=== PATIENT | female | born 1950 | race Caucasian/White ===

== ENCOUNTER → 2018-06-30 09:20 | Outpatient (CLI) | payer MEDICARE, OTHER, SELFPAY ==
--- NOTE | 2018-06-30 | DI.ECHO.S_ITS ---
[facility] +---------+ : : [address] : : : : [id number] : : : : Phone: [phone] Echocardiogram Report + + :Name: SAL ESTEVES Study Date: 06/30/2018 Height: 66 in : :[facility] Weight: 240 lb : : Gender: Female BSA: 2.2 m2 : :: 1950 Age: 68 yrs BP: 180/88 mmHg: :Reason For Study: Murmur : : Performed By: Chayito Vasquez : :Referring: MICHELLE HENDRIX : + + Interpretation Summary The left ventricle is normal in size, wall thickness, and systolic function without any focal wall motion abnormalities. The ejection fraction is estimated to be 60-65%. The right ventricle grossly appears normal in size with probable normal systolic function. The IVC is of normal diameter and collapses greater than 50% with a sniff. This suggests a low right atrial pressure of 3 mm Hg. No hemodynamically significant valvular abnormalities. Comparison is made with the echocardiogram of 08-18-14. No significant change. Procedure: A two-dimensional transthoracic echocardiogram with color flow and Doppler was performed. The study quality was technically adequate. Comparison is made with the echocardiogram of 08-18-14. The patient was in normal sinus rhythm during the exam. Left Ventricle: The left ventricle is normal in size, wall thickness, and systolic function without any focal wall motion abnormalities. The ejection fraction is estimated to be 60-65%. Diastolic parameters suggest probable normal left ventricular diastolic function and normal filling pressures. Right Ventricle: The right ventricle grossly appears normal in size with probable normal systolic function. Atria: The left atrium is mildly dilated. Right atrial size is normal. The interatrial septum is intact with no evidence for an atrial septal defect. Mitral Valve: The mitral valve leaflets appear borderline thickened, but open well. There is moderate mitral annular calcification. There is trace mitral regurgitation. Aortic Valve: The aortic valve opens well. The aortic valve is slightly calcified. The aortic valve is trileaflet. There is discrete nodular thickening of the non- coronary cusp. No aortic regurgitation is present. Tricuspid Valve: The tricuspid valve is not well visualized, but is grossly normal. There is trace tricuspid regurgitation. The right ventricular systolic pressure is estimated to be at least 32 mmHg based on an estimated right atrial pressure of 3 mm Hg. Pulmonic Valve: The pulmonic valve is not well visualized. There is trace pulmonic regurgitation. Great Vessels: The aortic root is normal size. The dimensions of the ascending aorta are normal. The IVC is of normal diameter and collapses greater than 50% with a sniff. This suggests a low right atrial pressure of 3 mm Hg. Pericardium/ Pleura There is no pericardial effusion. There is no pleural effusion. MMode/2D Measurements & Calculations LVIDd: 5.1 cm Ao root diam: 3.0 cm LVIDs: 3.4 cm Aortic Jxn: 2.4 cm FS: 33.7 % asc Aorta Diam: 3.3 cm EPSS: 0.48 cm Ao Arch Diam (Prox Trans): 2.9 cm IVSd: 1.0 cm LVPWd: 0.96 cm LV draper. diameter/BSA (cm/m^2): 2.4 LV sys. diameter/BSA (cm/m^2): 1.6 LA dimension: 4.1 cm RA long axis: 5.5 cm LA A2 area: 25.0 cm2 RA area: 17.6 cm2 LA A4 area: 23.1 cm2 RA vol: 47.9 ml LA length (vol): 5.8 cm RA : 22.2 ml/m2 LA vol: 85.1 ml IVC diam: 1.1 cm LA vol index: 39.4 ml/m2 RVDd major: 4.9 cm RVD1 (basal): 2.6 cm RVD2 (mid): 2.4 cm Doppler Measurements & Calculations Ao V2 max: 161.8 cm/sec MV E max agustin: 123.5 cm/sec Ao V2 mean: 93.2 cm/sec MV A max agustin: 123.5 cm/sec Ao max P.5 mmHg MV E/A: 1.0 Ao mean P.4 mmHg Med Peak E' Agustin: 7.1 cm/sec Ao V2 VTI: 35.6 cm E/E' med: 17.5 Lat Peak E' Agustin: 8.8 cm/sec E/E' lat: 14.0 E/e' average: 15.7 MV dec time: 0.19 sec MV P1/2t: 57.5 msec TR max agustin: 269.9 cm/sec MV P1/2t max agustin: 123.7 cm/sec TR max P.1 mmHg MVA(P1/2t): 3.8 cm2 PA V2 max: 91.8 cm/sec PA V2 mean: 63.2 cm/sec PA mean P.9 mmHg PA Accel Time: 0.12 sec Electronically signed by: Francisco Dacosta M.D. on Reading Physician:06/30/2018 09:00 PM
== END ==
PROVIDERS: Family Provider Orthopaedic Surgery; PCP Family Medicine; Referring Provider Internal Medicine; Visit Provider Family Medicine
DX: R01.1 Cardiac murmur, unspecified (principal)
CPT/HCPCS: 93005; 93010; 93306

== ENCOUNTER 2018-08-02 06:09 | Day surgery (SDC) | payer MEDICARE, OTHER, SELFPAY ==
[2018-07-23 09:59] VITALS: BMI 39.2
[2018-08-02] VITALS (9 sets, daily range): BP systolic 118–195; BP diastolic 52–90; PULSE 84–101; RESP 12–23; TEMP 36.1–37.1; O2SAT 91–98; BMI 39.2
[2018-08-02] MEDS: LACTATED RINGERS 1,000 ML 42 ML IV (07:00)
--- NOTE | 2018-08-02 07:41 | PM.PREOP ---
Pre-operative Note Interval Note Pre-op Check: Yes History & Physical Reviewed by Physician and Yes Exam Performed Changes: No
[2018-08-02] MEDS: CEFAZOLIN 2 GM/100 ML FROZ.PIGGY IV (08:01)
--- NOTE | 2018-08-02 08:37 | SUR.OPER ---
Lateral on padded OR bed with barba bag positioner, head on pillow, gel axillary roll in place, bottom leg bent with gel pad under knee to foot, upper leg straight and supported with pillows. Operative arm secured in shoulder positioning suspension device. non-operative arm secured on padded arm board. Safety belt at hip, tape over blanket securing lower legs.
--- NOTE | 2018-08-02 09:02 | PM.PROC.1 ---
Procedures Date/Time Date of procedure: 08/02/18 Time of procedure: 07:45 General Procedure description: Ultrasound guided interscalene brachial plexus nerve block for post op pain control after Left shoulder surgery by Dr. Lawson. Risk and benefits of procedure discussed with patient. ASA monitoring applied to patient. O2 given via nasal cannula. 2 mg Versed and 50 mcg fentanyl given for procedural sedation. Skin site was prepped with chlorhexidine and allowed to fully dry. Sterile gloves, mask, hat and probe cover were used to maintain sterility. 2% lidocaine and 30ga needle was used to make a small skin wheal at needle insertion site. Under ultrasound guidance, a 21ga 50mm Pajunk needle was directed into the interscalene groove (middle/anterior scalenes) near the brachial plexus. Patient reported no parasthesias. After negative aspiration, 15 mL 0.5% ropivicaine and 10mg dexamethasone were injected around brachial plexus. Patient tolerated procedure well.
[2018-08-02] MEDS: SODIUM CHLORIDE IRRIG SOLUTION 12,000 ML, EPINEPHrine 4 MG IRR (09:19)
[2018-08-02] MEDS: fentaNYL 100 MCG/2 ML INJ 50 MCG IV ×2 (09:41→09:49)
--- NOTE | 2018-08-02 09:42 | P.OP_ITS ---
Operative Date/Time/Diagnoses Date of procedure: 08/02/18 Time of procedure: 09:20 Pre-op diagnosis: 1. Left shoulder recurrent rotator cuff tear 2. Left shoulder acromioclavicular osteoarthritis 3. Left shoulder biceps tendinitis Post-op diagnosis: other (Left shoulder loose body in addition to the above diagnoses) Procedure & Clinicians Procedure: 1. Left shoulder arthroscopic rotator cuff repair 2. Left shoulder arthroscopic distal clavicle excision 3. Left shoulder arthroscopic loose body excision 4. Left shoulder arthroscopic minor debridement (biceps tenotomy) Same procedure as scheduled: Yes Indications: The patient is a 68-year-old woman who has had left shoulder pain that has not responded to an extensive attempt at nonoperative management. She has previously undergone a rotator cuff repair on that shoulder many years ago but her MRI appears to show a recurrence of the rotator cuff tear. She has agreed to surgery after discussion of the risks benefits and alternatives. Risks discussed included but were not limited to: Failure to improve either pain or function, infection, nerve damage, deep venous thrombosis, pulmonary embolism, stroke, myocardial infarction, permanent paralysis and . Surgeon: Dilip Lawson Director Pharmaceutical: [employer]any Theodore Click Yes if Unassisted: No Anesthesia Type: General, Peripheral nerve block and Local Operative Notes Findings: 1. Moderate degenerative change to the glenohumeral cartilage, grade 2, with single cartilaginous loose body in the glenohumeral joint 2. Mild degenerative changes of the labrum 3. Flattening and mild subluxation of the biceps tendon 4. Intact appearing subscapularis 5. High-grade partial-thickness tearing with possible slight fenestration at the site of the prior repair of the supraspinatus with loose suture in the joint. 6. Intact appearing infraspinatus 7. Axillary pouch normal 8. Intact appearing glenohumeral ligaments 9. Thinning and abrasion of the bursal surface of the rotator cuff in the same area as the abnormal supraspinatus in the joint 10. Satisfactory appearing prior subacromial decompression 11. Significant arthritic change of the acromioclavicular joint Closure Type: primary Specimen(s): none sent Implants & Drains: One Mitek Healix BR 5.5 mm anchor Applied: implant(s) Estimated Blood Loss (mL): 10 Blood products transfused: none Procedure in detail: The patient was seen in the preoperative area where she identified the left shoulder as the operative site and this was marked with my initials. She received preoperative antibiotics and underwent an interscalene block. She was taken to the operating room and placed on the operating room table in a supine position where she underwent induction with general anesthetic. Following the onset of satisfactory anesthesia her shoulder was examined under anesthesia with findings of a full range of motion and no evidence for pathologic laxity. She was then repositioned in the right lateral decubitus position with an axillary roll and padding for all pressure points. She was stabilized in this position with a barba bag and adhesive tape. The left arm was prepared from the fingertips to the base and neck with ChloraPrep in the usual fashion drape through sterile drapes. The arm was placed in 10 lb of balanced skin suspension. Subcutaneous landmarks were outlined on the skin with a marking pen and portal sites selected. The posterior portal was created and the arthroscope inserted in the glenohumeral joint. The anterior portal was used for shaver which was used to both remove the loose body and to perform a biceps tenotomy due to the flattening and mild subluxation. The arthroscopic equipment was then removed from the glenohumeral joint and replaced in the subacromial bursa with the scope through the posterior portal and the shaver through a newly created lateral portal. Prior to removing the scope from the joint we had placed a percutaneous marking suture at the site of maximum abnormality of the rotator cuff. This suture was identified in the bursa and shaver used to complete the rotator cuff tear through the thinned, frayed tissue evident in the bursa. The acromion was inspected and found to be well decompressed. The distal clavicle was inspected and the distal 8-10 mm of bone removed there due to the arthritic change in the joint. The greater tuberosity was abraded to bleeding bone. During the removal of the soft tissue we had also removed the fragment of suture from her prior repair. A new anchor was placed through a superolateral accessory portal. The 2 sutures from this anchor were placed in simple suture fashion across the 1 cm rotator cuff tear and tied to complete the repair. The integrity of the repair was verified from both the posterior and lateral views. At this point all arthroscopic equipment was removed from the joint. The wounds were closed with 4 0 Monocryl and Steri- Strips. A total of 20 mL 0.5% Marcaine was injected into the subcutaneous tissues and the subacromial space for postoperative pain control. Dressings sterile 4x4s, an ABD and an adhesive dressing were applied and the patient's arm placed in a sling. She was then transferred to the recovery room in good condition having tolerated the procedure well. Complications: none Condition: stable Disposition: PACU Plan for aftercare: The patient will be maintained on a standard small size rotator cuff tear protocol with passive range of motion and no lifting with the left arm for 6 weeks. She will be discharged today.
[2018-08-02] MEDS: BUPIVACAINE 0.5% W/ EPI (PF) VIAL 20 ML INJ (09:52)
[2018-08-02] MEDS: diphenhydrAMINE 25 MG TABLET PO (10:18)
--- NOTE | 2018-08-02 11:05 | SUR.PHASEII ---
Delay in discharge apprently related to not being available to take patient home due to a therapy appointment of codie reina. Patient dressed and ready to leave but remains in OPD.
== END 2018-08-02 11:55 | disposition home or self-care (01) ==
PROVIDERS: Family Provider Orthopaedic Surgery; PCP Family Medicine; Visit Provider Orthopaedic Surgery
PROC: (CPT 29827; principal; 2018-08-02 07:45)
DX: M75.122 Complete rotator cuff tear or rupture of left shoulder, not specified as traumatic (principal); M75.22 Bicipital tendinitis, left shoulder; M19.012 Primary osteoarthritis, left shoulder; Z98.890 Other specified postprocedural states; G89.18 Other acute postprocedural pain; G47.33 Obstructive sleep apnea (adult) (pediatric); I25.10 Atherosclerotic heart disease of native coronary artery without angina pectoris; Z79.84 Long term (current) use of oral hypoglycemic drugs; I11.0 Hypertensive heart disease with heart failure; I50.9 Heart failure, unspecified; I25.2 Old myocardial infarction
CPT/HCPCS: 29827; 29824; 64415; J0171; J0330; J0690; J1100; J2250; J2405; J2704; J2795; J3010

== ENCOUNTER 2018-11-26 09:44 | Emergency (ER) | payer MEDICARE, OTHER, SELFPAY ==
[2018-11-26 09:51] VITALS: BP 152/73; PULSE 71; RESP 20; TEMP 36.4; O2SAT 100
--- NOTE | 2018-11-26 11:13 | DI.US.S_ITS ---
PROCEDURE: US PERIPH VENOUS LOW EXTREM LT INDICATIONS: LEFT LOWER EXTREMITY PAIN TO BACK OF KNEE AND CALF TECHNIQUE: Real-time imaging, as well as color and pulse Doppler interrogation, were performed of the lower extremity deep veins from the inguinal ligament to the popliteal fossa. COMPARISON: None. FINDINGS: The common femoral, femoral and popliteal veins are normally compressible, and free of intraluminal thrombus. Color and pulse Doppler demonstrate normal phasic intraluminal flow. There is normal augmentation response to distal compression maneuver. IMPRESSION: No evidence of left lower extremity DVT. Dictated by: Fredis Lou M.D. on 11/26/2018 at 11:49 Approved by: Fredis Lou M.D. on 11/26/2018 at 11:51
--- NOTE | 2018-11-26 12:13 | ED_ITS ---
HPI - Extremity Problem <LEX Stafford - Last Filed: 11/26/18 22:38> General Chief complaint: Extremity Problem,Nontraumatic Stated complaint: lt leg pain, throbs, aches upon walking Time Seen by Provider: 11/26/18 12:03 Source: patient Mode of arrival: ambulatory Limitations: no limitations History of Present Illness HPI Narrative: [age] year old female with history of hypertension and is a former smoker here for complaint of pain into her left calf area over the past couple of days. She denies any trauma to that area. She reports she has pain with ambulation although she is ambulatory into the emergency room. She denies any chest pain no shortness of breath. Pain is limited to the left calf region. No fevers no chills. She denies any stressors or relievers of her pain other than pain with ambulation. Related Data Home Medications Medication Instructions Recorded Confirmed atorvastatin 20 mg PO QPM 07/23/18 11/26/18 diltiazem HCl 300 mg PO DAILY 07/23/18 11/26/18 flecainide 100 mg PO BID 07/23/18 11/26/18 gabapentin 300 mg PO QAM 07/23/18 11/26/18 glipizide 20 mg PO QAM 07/23/18 11/26/18 isosorbide mononitrate 60 mg PO DAILY 07/23/18 11/26/18 losartan 25 mg PO DAILY 07/23/18 11/26/18 metformin 1,000 mg PO BID 07/23/18 11/26/18 nitroglycerin 0.4 mg SUBLINGUAL DAILY PRN 07/23/18 11/26/18 omeprazole 40 mg PO DAILY 07/23/18 11/26/18 potassium chloride [Klor-Con 10] 10 meq PO QPM 07/23/18 11/26/18 allopurinol 300 mg PO DAILY 11/26/18 11/26/18 colchicine [Colcrys] 0.6 mg PO DAILY PRN 11/26/18 11/26/18 escitalopram oxalate 20 mg PO DAILY 11/26/18 11/26/18 gabapentin 600 mg PO QPM 11/26/18 11/26/18 torsemide 20 mg PO Q OTHER DAY 11/26/18 11/26/18 torsemide 40 mg PO Q OTHER DAY 11/26/18 11/26/18 Allergies Allergy/AdvReac Type Severity Reaction Status Date / Time adhesive tape [ADHESIVE TAPE] Allergy Intermediate WELTS/Itching Unverified 07/23/18 10:37 PAPER/SILK TAPE OK iodine [IODINE] Allergy Mild ITCHY AND Unverified 12/16/17 11:48 RASH UNLESS WASHED OF corn Allergy Swelling Verified 08/02/18 07:11 of Lip/Tongue/Throat codeine [CODEINE] AdvReac Intermediate ITCHY Unverified 12/16/17 11:48 hydrocodone [HYDROCODONE] AdvReac Intermediate ITCHY Unverified 12/16/17 11:48 oxycodone [OXYCODONE] AdvReac Intermediate ITCHY Unverified 12/16/17 11:48 Review of Systems <LEX Stafford - Last Filed: 11/26/18 22:38> Constitutional Denies chills, Denies fever(s), Denies lethargy and Denies weakness Eyes Denies change in vision, Denies eye discharge, Denies irritation and Denies loss of vision ENT Ears, Nose, Mouth, and Throat: Denies change in voice, Denies neck pain and Denies sore throat Cardiovascular Denies dyspnea and Denies dyspnea on exertion Respiratory Denies cough, Denies dyspnea, Denies dyspnea on exertion and Denies wheezing Gastrointestinal Gastrointestinal: Denies abdominal pain, Denies change in bowel habits, Denies diarrhea, Denies nausea and Denies vomiting Genitourinary Denies hematuria, Denies flank pain, Denies urinary incontinence and Denies urinary urgency Musculoskeletal Denies neck pain Comments: Left leg pain Integumentary/Breasts Denies pruritus, Denies erythema, Denies rash and Denies wounds Neurologic Denies confusion, Denies loss of vision and Denies weakness Psychiatric Denies anxiety, Denies confusion, Denies depression, Denies homicidal ideation and Denies suicidal ideation Hematologic/Lymphatic Denies easy bruising Allergic/Immunologic Denies wheezing PFSH <LEX Stafford - Last Filed: 11/26/18 22:38> Medical History Actinic keratosis (Acute) Anemia (Acute) Arthritis of left acromioclavicular joint (Acute) Basal cell carcinoma (Acute) Cardiac murmur (Acute) GERD (gastroesophageal reflux disease) (Acute) History of hysterectomy (Acute) History of squamous cell carcinoma (Acute) Hyperlipidemia (Acute) Hypertension (Acute) Obesity (BMI 30-39.9) (Acute) Osteoporosis (Acute) PVC (premature ventricular contraction) (Acute) ST segment abnormality (Acute ~08/2014) Seborrheic keratosis (Acute) Skin lesion of back (Acute) Sleep apnea (Acute) Spina bifida occulta (Acute) Tear of left rotator cuff (Acute) Type II diabetes mellitus (Acute) Valvular sclerosis (Acute) Surgical History History of appendectomy (Acute) History of arthroscopy of both knees (Acute) History of cholecystectomy (Acute) History of colonoscopy (Acute) History of esophagogastroduodenoscopy (EGD) (Acute) History of repair of rotator cuff (Acute) History of total left hip arthroplasty (Acute) History of total right hip arthroplasty (Acute) Social History household members: spouse Smoking Status: Former smoker Social History household members: spouse Smoking Status: Former smoker Exam <LEX Stafford - Last Filed: 11/26/18 22:38> Initial Vital Signs Initial Vital Signs: Vital Signs Temperature 97.5 F L 11/26/18 09:51 Pulse Rate 71 11/26/18 09:51 Respiratory Rate 20 11/26/18 09:51 Blood Pressure 152/73 H 11/26/18 09:51 Pulse Oximetry 100 11/26/18 09:51 Const General: cooperative and well developed Nutritional Appearance: well nourished Orientation: alert, awake, oriented x3 and not confused [facility] Mouth: oral mucosae normal and moist mucous membranes Eyes Conjunctivae: conjunctivae normal Sclera: sclerae normal Pupils: PERRL EOM: EOM intact bilaterally Resp Effort & Inspection: normal respiratory effort, able to speak in complete sentences, no respiratory distress and no use of accessory muscles Auscultation: clear to auscultation bilaterally, no rales, no rhonchi and no wheezes Cardio Rate: regular rate Rhythm: regular rhythm Heart Sounds: no click, no gallops, no murmurs and no rubs Pulses: normal peripheral pulses Skin General: no rashes or lesions noted, No jaundice and No petechiae Neuro General: alert, oriented x3, gait normal and no focal motor deficits Speech: speech normal Extrem Other: Left lower extremity with no swelling no erythema no increased temperature on palpation. No signs of trauma no deformities. Distal sensation is intact. Distal pulses are intact full range of motion distally. Homans sign negative. <Essence Philippe DO - Last Filed: 11/27/18 08:15> Initial Vital Signs Initial Vital Signs: Vital Signs Temperature 97.5 F L 11/26/18 09:51 Pulse Rate 71 11/26/18 09:51 Respiratory Rate 20 11/26/18 09:51 Blood Pressure 152/73 H 11/26/18 09:51 Pulse Oximetry 100 11/26/18 09:51 Course <LEX Stafford - Last Filed: 11/26/18 22:38> Orders Ordered: ED Orders 11/26/18 11:13 US periph venous low extrem lt Stat Vital Signs - 8 hr 11/26/18 09:51 Temperature 97.5 F L Pulse Rate 71 Respiratory Rate 20 Blood Pressure 152/73 H Pulse Oximetry 100 <Essence Philippe DO - Last Filed: 11/27/18 08:15> Orders Ordered: ED Orders 11/26/18 11:13 US periph venous low extrem lt Stat Vital Signs - 8 hr 11/26/18 09:51 Temperature 97.5 F L Pulse Rate 71 Respiratory Rate 20 Blood Pressure 152/73 H Pulse Oximetry 100 MDM - Extremity (Nontraumatic) <LEX Stafford - Last Filed: 11/26/18 22:38> Imaging Data Venous US: Radiologist's impression: [place] [address] Ultrasound Report Signed Patient: Sherry Mcknight [facility]#: [id number] : [id number]:[id number] Age/Sex: 68 / FDate of Service: 11/26/18 Loc: ED Accession Number: [id number] Procedure: US periph venous low extrem lt Ordering Provider: Essence Philippe D.O. PROCEDURE: US PERIPH VENOUS LOW EXTREM LT INDICATIONS: LEFT LOWER EXTREMITY PAIN TO BACK OF KNEE AND CALF TECHNIQUE: Real-time imaging, as well as color and pulse Doppler interrogation, were performed of the lower extremity deep veins from the inguinal ligament to the popliteal fossa. COMPARISON: None. FINDINGS: The common femoral, femoral and popliteal veins are normally compressible, and free of intraluminal thrombus. Color and pulse Doppler demonstrate normal phasic intraluminal flow. There is normal augmentation response to distal compression maneuver. IMPRESSION: No evidence of left lower extremity DVT. Dictated by: Fredis Lou M.D. on 11/26/2018 at 11:49 Approved by: Fredis Lou M.D. on 11/26/2018 at 11:51 MDM Narrative Medical decision making narrative: Ultrasound of the left lower extremity was obtained was negative for DVT. Differential of her pain being caused by muscle strain or varicose veins. [id number] Tylenol as needed for any discomfort. May use warm moist compresses to the area. Rest area. Follow up with primary care provider. Return emergency room for worsening symptoms. Discharge Plan Departure Patient Disposition: Home Clinical Impression: Acute pain of left lower extremity Discharge Date/Time: 11/26/18 12:25 Interventions: ED Discharge Assessment Last Done: 11/26/18 12:25 Instructions: DI for Leg Pain Activity Restrictions/Additional Instructions: Ultrasound of the left lower extremity was negative for a DVT. Differential between symptoms of other muscle pain or due to varicose veins. Rest area. Gentle range of motion of painful areas of keep muscles loose. May use warm moist compresses to varicose veins to see if it helps with the discomfort. May use elevation as well. Use [id number] Tylenol as needed for any discomfort. Follow up with primary care provider. Return emergency room for worsening symptoms. Prescriptions: No Action torsemide 20 mg tablet 20 mg PO Q OTHER DAY RF: 0 allopurinol 300 mg tablet 300 mg PO DAILY RF: 0 colchicine [Colcrys] 0.6 mg tablet 0.6 mg PO DAILY PRN (Reason: Gout) RF: 0 torsemide 20 mg tablet 40 mg PO Q OTHER DAY RF: 0 gabapentin 300 mg capsule 600 mg PO QPM RF: 0 escitalopram oxalate 20 mg tablet 20 mg PO DAILY RF: 0 losartan 50 mg Tablet 25 mg PO DAILY RF: 0 metformin 500 mg Tablet 1,000 mg PO BID RF: 0 atorvastatin 20 mg Tablet 20 mg PO QPM RF: 0 glipizide 10 mg Tablet 20 mg PO QAM RF: 0 diltiazem HCl 300 mg Capsule,Extended Release 24 Hr 300 mg PO DAILY RF: 0 omeprazole 40 mg Capsule,Delayed Release(Dr/Ec) 40 mg PO DAILY RF: 0 nitroglycerin 0.4 mg Tablet, Sublingual 0.4 mg SUBLINGUAL DAILY PRN (Reason: Chest Pain) RF: 0 potassium chloride [Klor-Con 10] 10 mEq Tablet Extended Release 10 meq PO QPM RF: 0 isosorbide mononitrate 60 mg Tablet Extended Release 24 Hr 60 mg PO DAILY RF: 0 flecainide 100 mg Tablet 100 mg PO BID RF: 0 gabapentin 300 mg Capsule 300 mg PO QAM RF: 0 Referrals: Paul Peralta DO [Primary Care Provider] - <Essence Philippe DO - Last Filed: 11/27/18 08:15> Cosign ED Attending Cosignature Attestation: I was immediately available in the department for consultation. Documentation has been reviewed. I agree with assessment and plan.
[2018-11-26 12:24] VITALS: BP 139/59; PULSE 57; RESP 18; O2SAT 98
[2018-11-26 12:25] VITALS: BP 139/59; PULSE 57; RESP 18; O2SAT 99
== END 2018-11-26 12:25 | disposition home or self-care (01) ==
PROVIDERS: Emergency Provider Nurse Practitioner Family; Family Provider Orthopaedic Surgery; PCP Family Medicine
DX: M79.662 Pain in left lower leg (principal)
CPT/HCPCS: 93971; 99282; 99284

== ENCOUNTER 2019-01-19 10:42 | Emergency (ER) | payer MEDICARE, OTHER, SELFPAY ==
[2019-01-19 10:45] VITALS: BP 140/72; PULSE 80; TEMP 36.5; O2SAT 97
--- NOTE | 2019-01-19 10:53 | DI.RAD.S_ITS ---
PROCEDURE: XR CHEST 2V INDICATIONS: cough x 1 week TECHNIQUE: 2 views of the chest were acquired. COMPARISON: [facility], , CHEST 1 VIEW, 08/06/2015, 8:46. FINDINGS: Surgical changes and devices: None. Lungs and pleura: Lungs are clear. No pleural effusions or pneumothorax. Mediastinum: Mediastinal contours are normal. Heart size is normal. Bones and chest wall: No suspicious bony abnormalities. Soft tissues appear unremarkable. IMPRESSION: No acute disease Dictated by: Jevon Spencer M.D. on 01/19/2019 at 11:22 Approved by: Jevon Spencer M.D. on 01/19/2019 at 11:22
[2019-01-19 11:30] VITALS: BP 130/59; PULSE 71; PULSE 75; RESP 16; RESP 18; O2SAT 95; O2SAT 96
[2019-01-19 12:00] VITALS: BP 123/66; PULSE 67; O2SAT 97
--- NOTE | 2019-01-19 12:39 | ED.SOB ---
HPI - SOB/Dyspnea <Tamica Contreras, TOOL PROFILING MACHINE SET UP OPERATOR-BC - Last Filed: 01/19/19 13:50> General Chief Complaint: Shortness of Breath/Dyspnea Stated Complaint: 'RESPITORY SOMETHING GOING ON' Time Seen by Provider: 01/19/19 12:20 Source: patient and family Mode of arrival: ambulatory Limitations: no limitations History of Present Illness The patient is a 68-year-old female former smoker with history of diabetes who presents with a chief complaint of a productive cough x3 days. She states she is having sinus pressure, sinus headaches and lots of mucus from her nose. She denies any fevers nausea vomiting abnormal diarrhea. She denies any shortness of breath or chest pain. She states her sputum is yellow. She is concerned about pneumonia. She denies sore throat. She denies ear pain. She started taking Sudafed yesterday. She has not taken anything else to feel better. She states she has a history of seasonal allergies, but has not had any issues for the past 3 years. She is very concerned about pneumonia. Related Data Home Medications Medication Instructions Recorded Confirmed atorvastatin 20 mg PO QPM 07/23/18 01/19/19 diltiazem HCl 300 mg PO DAILY 07/23/18 01/19/19 flecainide 100 mg PO BID 07/23/18 01/19/19 gabapentin 300 mg PO QAM 07/23/18 01/19/19 glipizide 20 mg PO QAM 07/23/18 01/19/19 isosorbide mononitrate 60 mg PO DAILY 07/23/18 01/19/19 losartan 25 mg PO DAILY 07/23/18 01/19/19 metformin 1,000 mg PO BID 07/23/18 01/19/19 nitroglycerin 0.4 mg SUBLINGUAL DAILY PRN 07/23/18 01/19/19 omeprazole 40 mg PO DAILY 07/23/18 01/19/19 potassium chloride [Klor-Con 10] 10 meq PO QPM 07/23/18 01/19/19 allopurinol 300 mg PO DAILY 11/26/18 01/19/19 colchicine [Colcrys] 0.6 mg PO DAILY PRN 11/26/18 01/19/19 escitalopram oxalate 20 mg PO DAILY 11/26/18 01/19/19 gabapentin 600 mg PO QPM 11/26/18 01/19/19 torsemide 20 mg PO Q OTHER DAY 11/26/18 01/19/19 Allergies Allergy/AdvReac Type Severity Reaction Status Date / Time adhesive tape [ADHESIVE TAPE] Allergy Intermediate WELTS/Itching Verified 01/19/19 10:48 PAPER/SILK TAPE OK iodine [IODINE] Allergy Mild ITCHY AND Verified 01/19/19 10:48 RASH UNLESS WASHED OF corn Allergy Swelling Verified 01/19/19 10:48 of Lip/Tongue/Throat codeine [CODEINE] AdvReac Intermediate ITCHY Verified 01/19/19 10:48 hydrocodone [HYDROCODONE] AdvReac Intermediate ITCHY Verified 01/19/19 10:48 oxycodone [OXYCODONE] AdvReac Intermediate ITCHY Verified 01/19/19 10:48 Review of Systems <[facility] - Last Filed: 01/19/19 13:50> Review of Systems GENERAL: Denies chills, fatigue, malaise, fever, sweats. HEENT: See HPI RESPIRATORY: See HPI CARDIOVASCULAR: Denies chest pain, palpitations, orthopnea, edema, GASTROINTESTINAL: Denies nausea, vomiting, abdominal pain, diarrhea, constipation, melena. : Denies dysuria, frequency, incontinence, hematuria, urinary retention. MUSCULOSKELETAL: denies weakness, joint pain, or bony pain SKIN: Denies rash, skin lesions, or other NEUROLOGIC: Denies weakness, headache, numbness, change in speech, confusion, seizures, incoordination. PSYCHIATRIC: No concerning psychosocial issues. 12 point review of systems is negative except for those stated above PFSH <[facility] - Last Filed: 01/19/19 13:50> Social History household members: spouse Smoking Status: Former smoker Exam <[facility] - Last Filed: 01/19/19 13:50> Narrative Exam Narrative: GENERAL: Obese elderly female lying on stretcher HEAD: Atraumatic. Normocephalic. No temporal or scalp tenderness. Pain to sinus palpation bilateral frontal sinuses. EYES: Pupils equal round and reactive. Extraocular motions intact. No scleral icterus. No injection or drainage. ENT: Nose without bleeding, purulent drainage or septal hematoma. Throat without erythema, tonsillar hypertrophy or exudate. Uvula midline. Airway patent. Bilateral TMs pearly young. Pressure noted bilaterally. Cobblestoning of throat noted. NECK: Trachea midline. No JVD or lymphadenopathy. Supple, nontender, no meningeal signs. CARDIOVASCULAR: Regular rate and rhythm without murmurs, gallops, or rubs. RESPIRATORY: Clear to auscultation. Breath sounds equal bilaterally. No wheezes, rales, or rhonchi. No cough. No increased respiratory effort. No retractions. No accessory muscle use. GASTROINTESTINAL: Abdomen soft, non-tender, nondistended. No hepato-splenomegaly, or palpable masses. No guarding. EXTREMITIES: No clubbing, cyanosis, or edema. No joint tenderness, effusion, or edema noted. NEURO: AOx3. SKIN: No rash or erythema. Initial Vital Signs Initial Vital Signs: Vital Signs Temperature 97.7 F 01/19/19 10:45 Pulse Rate 80 01/19/19 10:45 Blood Pressure 140/72 01/19/19 10:45 Pulse Oximetry 97 01/19/19 10:45 <Veronika Garcia MD - Last Filed: 01/19/19 14:56> Initial Vital Signs Initial Vital Signs: Vital Signs Temperature 97.7 F 01/19/19 10:45 Pulse Rate 80 01/19/19 10:45 Blood Pressure 140/72 01/19/19 10:45 Pulse Oximetry 97 01/19/19 10:45 Course <MAGDALENA Samayoa-BC - Last Filed: 01/19/19 13:50> Orders Ordered: ED Orders 01/19/19 10:53 XR chest 2V Stat EKG-12 Lead Stat Vital Signs - 8 hr 01/19/19 10:45 01/19/19 11:30 01/19/19 12:00 Temperature 97.7 F Pulse Rate 80 75 67 Respiratory Rate 18 Blood Pressure 140/72 Blood Pressure [Left Arm] 130/59 L 123/66 Pulse Oximetry 97 96 97 01/19/19 12:52 Temperature Pulse Rate 72 Respiratory Rate 16 Blood Pressure 120/70 Blood Pressure [Left Arm] Pulse Oximetry 95 <Veronika Garcia MD - Last Filed: 01/19/19 14:56> Orders Ordered: ED Orders 01/19/19 10:53 XR chest 2V Stat EKG-12 Lead Stat Vital Signs - 8 hr 01/19/19 10:45 01/19/19 11:30 01/19/19 12:00 Temperature 97.7 F Pulse Rate 80 75 67 Respiratory Rate 18 Blood Pressure 140/72 Blood Pressure [Left Arm] 130/59 L 123/66 Pulse Oximetry 97 96 97 01/19/19 12:52 Temperature Pulse Rate 72 Respiratory Rate 16 Blood Pressure 120/70 Blood Pressure [Left Arm] Pulse Oximetry 95 [facility] - SOB/Dyspnea <MAGDALENA Samayoa- - Last Filed: 01/19/19 13:50> Imaging Data Chest x-ray: Radiologist's impression: [address] [address] XRay Report Signed Patient: Sherry Mcknight [facility]#: [id number] : [id number]:[id number] Age/Sex: 68 / FDate of Service: 01/19/19 Loc: ED Accession Number: [id number] Procedure: XR chest 2V Ordering Provider: Veronika Garcia MD PROCEDURE: XR CHEST 2V INDICATIONS: cough x 1 week TECHNIQUE: 2 views of the chest were acquired. COMPARISON: [facility], CHEST 1 VIEW, 08/06/2015, 8:46. FINDINGS: Surgical changes and devices: None. Lungs and pleura: Lungs are clear. No pleural effusions or pneumothorax. Mediastinum: Mediastinal contours are normal. Heart size is normal. Bones and chest wall: No suspicious bony abnormalities. Soft tissues appear unremarkable. IMPRESSION: No acute disease Dictated by: Jevon Spencer M.D. on 01/19/2019 at 11:22 Approved by: Jevon Spencer M.D. on 01/19/2019 at 11:22 ECG Data Attestation: I personally reviewed and interpreted this ECG as follows: Interpretation: Sinus rhythm. Ventricular rate 75. No ST elevation or depression. No ectopy noted. Viewed by Dr. Jose VILLARREAL Narrative Medical decision making narrative: The patient is a 68-year-old female with productive cough. She has a negative x-ray for pneumonia. Given her signs and symptoms of sinus headache, congestion I am concerned about upper respiratory infection. I discussed that she cannot get antibiotics for sinus infection without systemic symptoms for 10-14 days. Thus I discussed at length the use of Flonase, Neti pot and [id number] symptom control. Encouraged follow-up with her primary care provider. Did discussed doing blood work given her history of congestive heart failure to check BNP, but the patient declined. Encouraged patient to come back to emergency department for any acute concerns such as chest pain or shortness of breath. Patient had no questions or concerns upon discharge. She is hemodynamically stable and afebrile throughout her stay in the emergency department. Discharge Plan Departure Patient Disposition: Home Clinical Impression: Cough Upper respiratory infection Qualifiers: URI type: unspecified viral URI Qualified Code(s): J06.9 - Acute upper respiratory infection, unspecified Discharge Date/Time: 01/19/19 12:52 Interventions: ED Discharge Assessment Last Done: 01/19/19 12:52 Instructions: DI for Cough -- Adult, DI for Viral Upper Respiratory Infection -- Adult Activity Restrictions/Additional Instructions: Your x-ray shows no pneumonia. I suggest use of a Neti pot or Anthony med sinus rinse 3 times a day. I suggest Flonase twice a day for 3 days and then once a day in each nare. Flonase is available [id number]. I also suggest a decongestant, but be careful with Sudafed given your high blood pressure. Always keep in mind allergies may be causing this. Please come back to emergency department for any chest pain shortness of breath or acute concerns. Prescriptions: No Action torsemide 20 mg tablet 20 mg PO Q OTHER DAY RF: 0 allopurinol 300 mg tablet 300 mg PO DAILY RF: 0 colchicine [Colcrys] 0.6 mg tablet 0.6 mg PO DAILY PRN (Reason: Gout) RF: 0 gabapentin 300 mg capsule 600 mg PO QPM RF: 0 escitalopram oxalate 20 mg tablet 20 mg PO DAILY RF: 0 losartan 50 mg Tablet 25 mg PO DAILY RF: 0 metformin 500 mg Tablet 1,000 mg PO BID RF: 0 atorvastatin 20 mg Tablet 20 mg PO QPM RF: 0 glipizide 10 mg Tablet 20 mg PO QAM RF: 0 diltiazem HCl 300 mg Capsule,Extended Release 24 Hr 300 mg PO DAILY RF: 0 omeprazole 40 mg Capsule,Delayed Release(Dr/Ec) 40 mg PO DAILY RF: 0 nitroglycerin 0.4 mg Tablet, Sublingual 0.4 mg SUBLINGUAL DAILY PRN (Reason: Chest Pain) RF: 0 potassium chloride [Klor-Con 10] 10 mEq Tablet Extended Release 10 meq PO QPM RF: 0 isosorbide mononitrate 60 mg Tablet Extended Release 24 Hr 60 mg PO DAILY RF: 0 flecainide 100 mg Tablet 100 mg PO BID RF: 0 gabapentin 300 mg Capsule 300 mg PO QAM RF: 0 Referrals: Paul Peralta DO [Primary Care Provider] -
--- NOTE | 2019-01-19 12:46 | ED_ITS ---
HPI - SOB/Dyspnea <Tamica Contreras, PORTFOLIO ASSISTANT-BC - Last Filed: 01/19/19 13:50> General Chief Complaint: Shortness of Breath/Dyspnea Stated Complaint: 'RESPITORY SOMETHING GOING ON' Time Seen by Provider: 01/19/19 12:20 Source: patient and family Mode of arrival: ambulatory Limitations: no limitations History of Present Illness The patient is a 68-year-old female former smoker with history of diabetes who presents with a chief complaint of a productive cough x3 days. She states she is having sinus pressure, sinus headaches and lots of mucus from her nose. She denies any fevers nausea vomiting abnormal diarrhea. She denies any shortness of breath or chest pain. She states her sputum is yellow. She is concerned about pneumonia. She denies sore throat. She denies ear pain. She started taking Sudafed yesterday. She has not taken anything else to feel better. She states she has a history of seasonal allergies, but has not had any issues for the past 3 years. She is very concerned about pneumonia. Related Data Home Medications Medication Instructions Recorded Confirmed atorvastatin 20 mg PO QPM 07/23/18 01/19/19 diltiazem HCl 300 mg PO DAILY 07/23/18 01/19/19 flecainide 100 mg PO BID 07/23/18 01/19/19 gabapentin 300 mg PO QAM 07/23/18 01/19/19 glipizide 20 mg PO QAM 07/23/18 01/19/19 isosorbide mononitrate 60 mg PO DAILY 07/23/18 01/19/19 losartan 25 mg PO DAILY 07/23/18 01/19/19 metformin 1,000 mg PO BID 07/23/18 01/19/19 nitroglycerin 0.4 mg SUBLINGUAL DAILY PRN 07/23/18 01/19/19 omeprazole 40 mg PO DAILY 07/23/18 01/19/19 potassium chloride [Klor-Con 10] 10 meq PO QPM 07/23/18 01/19/19 allopurinol 300 mg PO DAILY 11/26/18 01/19/19 colchicine [Colcrys] 0.6 mg PO DAILY PRN 11/26/18 01/19/19 escitalopram oxalate 20 mg PO DAILY 11/26/18 01/19/19 gabapentin 600 mg PO QPM 11/26/18 01/19/19 torsemide 20 mg PO Q OTHER DAY 11/26/18 01/19/19 Allergies Allergy/AdvReac Type Severity Reaction Status Date / Time adhesive tape [ADHESIVE TAPE] Allergy Intermediate WELTS/Itching Verified 01/19/19 10:48 PAPER/SILK TAPE OK iodine [IODINE] Allergy Mild ITCHY AND Verified 01/19/19 10:48 RASH UNLESS WASHED OF corn Allergy Swelling Verified 01/19/19 10:48 of Lip/Tongue/Throat codeine [CODEINE] AdvReac Intermediate ITCHY Verified 01/19/19 10:48 hydrocodone [HYDROCODONE] AdvReac Intermediate ITCHY Verified 01/19/19 10:48 oxycodone [OXYCODONE] AdvReac Intermediate ITCHY Verified 01/19/19 10:48 Review of Systems <[facility] - Last Filed: 01/19/19 13:50> Review of Systems GENERAL: Denies chills, fatigue, malaise, fever, sweats. HEENT: See HPI RESPIRATORY: See HPI CARDIOVASCULAR: Denies chest pain, palpitations, orthopnea, edema, GASTROINTESTINAL: Denies nausea, vomiting, abdominal pain, diarrhea, constipation, melena. : Denies dysuria, frequency, incontinence, hematuria, urinary retention. MUSCULOSKELETAL: denies weakness, joint pain, or bony pain SKIN: Denies rash, skin lesions, or other NEUROLOGIC: Denies weakness, headache, numbness, change in speech, confusion, seizures, incoordination. PSYCHIATRIC: No concerning psychosocial issues. 12 point review of systems is negative except for those stated above PFSH <[facility] - Last Filed: 01/19/19 13:50> Social History household members: spouse Smoking Status: Former smoker Exam <[facility] - Last Filed: 01/19/19 13:50> Narrative Exam Narrative: GENERAL: Obese elderly female lying on stretcher HEAD: Atraumatic. Normocephalic. No temporal or scalp tenderness. Pain to sinus palpation bilateral frontal sinuses. EYES: Pupils equal round and reactive. Extraocular motions intact. No scleral icterus. No injection or drainage. ENT: Nose without bleeding, purulent drainage or septal hematoma. Throat without erythema, tonsillar hypertrophy or exudate. Uvula midline. Airway patent. Bilateral TMs pearly young. Pressure noted bilaterally. Cobblestoning of throat noted. NECK: Trachea midline. No JVD or lymphadenopathy. Supple, nontender, no meningeal signs. CARDIOVASCULAR: Regular rate and rhythm without murmurs, gallops, or rubs. RESPIRATORY: Clear to auscultation. Breath sounds equal bilaterally. No wheezes, rales, or rhonchi. No cough. No increased respiratory effort. No retractions. No accessory muscle use. GASTROINTESTINAL: Abdomen soft, non-tender, nondistended. No hepato- splenomegaly, or palpable masses. No guarding. EXTREMITIES: No clubbing, cyanosis, or edema. No joint tenderness, effusion, or edema noted. NEURO: AOx3. SKIN: No rash or erythema. Initial Vital Signs Initial Vital Signs: Vital Signs Temperature 97.7 F 01/19/19 10:45 Pulse Rate 80 01/19/19 10:45 Blood Pressure 140/72 01/19/19 10:45 Pulse Oximetry 97 01/19/19 10:45 <Veronika Garcia MD - Last Filed: 01/19/19 14:56> Initial Vital Signs Initial Vital Signs: Vital Signs Temperature 97.7 F 01/19/19 10:45 Pulse Rate 80 01/19/19 10:45 Blood Pressure 140/72 01/19/19 10:45 Pulse Oximetry 97 01/19/19 10:45 Course <MAGDALENA Samayoa-BC - Last Filed: 01/19/19 13:50> Orders Ordered: ED Orders 01/19/19 10:53 XR chest 2V Stat EKG-12 Lead Stat Vital Signs - 8 hr 01/19/19 10:45 01/19/19 11:30 01/19/19 12:00 Temperature 97.7 F Pulse Rate 80 75 67 Respiratory Rate 18 Blood Pressure 140/72 Blood Pressure [Left Arm] 130/59 L 123/66 Pulse Oximetry 97 96 97 01/19/19 12:52 Temperature Pulse Rate 72 Respiratory Rate 16 Blood Pressure 120/70 Blood Pressure [Left Arm] Pulse Oximetry 95 <Veronika Garcia MD - Last Filed: 01/19/19 14:56> Orders Ordered: ED Orders 01/19/19 10:53 XR chest 2V Stat EKG-12 Lead Stat Vital Signs - 8 hr 01/19/19 10:45 01/19/19 11:30 01/19/19 12:00 Temperature 97.7 F Pulse Rate 80 75 67 Respiratory Rate 18 Blood Pressure 140/72 Blood Pressure [Left Arm] 130/59 L 123/66 Pulse Oximetry 97 96 97 01/19/19 12:52 Temperature Pulse Rate 72 Respiratory Rate 16 Blood Pressure 120/70 Blood Pressure [Left Arm] Pulse Oximetry 95 [facility]DM - SOB/Dyspnea <MAGDALENA Samayoa- - Last Filed: 01/19/19 13:50> Imaging Data Chest x-ray: Radiologist's impression: [address] [address] XRay Report Signed Patient: Sherry Mcknight [facility]#: [id number] : [id number]:[id number] Age/Sex: 68 / FDate of Service: 01/19/19 Loc: ED Accession Number: [id number] Procedure: XR chest 2V Ordering Provider: Veronika Garcia MD PROCEDURE: XR CHEST 2V INDICATIONS: cough x 1 week TECHNIQUE: 2 views of the chest were acquired. COMPARISON: [facility], CHEST 1 VIEW, 08/06/2015, 8:46. FINDINGS: Surgical changes and devices: None. Lungs and pleura: Lungs are clear. No pleural effusions or pneumothorax. Mediastinum: Mediastinal contours are normal. Heart size is normal. Bones and chest wall: No suspicious bony abnormalities. Soft tissues appear unremarkable. IMPRESSION: No acute disease Dictated by: Jevon Spencer M.D. on 01/19/2019 at 11:22 Approved by: Jevon Spencer M.D. on 01/19/2019 at 11:22 ECG Data Attestation: I personally reviewed and interpreted this ECG as follows: Interpretation: Sinus rhythm. Ventricular rate 75. No ST elevation or depression. No ectopy noted. Viewed by Dr. Jose VILLARREAL Narrative Medical decision making narrative: The patient is a 68-year-old female with productive cough. She has a negative x-ray for pneumonia. Given her signs and symptoms of sinus headache, congestion I am concerned about upper respiratory in fection. I discussed that she cannot get antibiotics for sinus infection without systemic symptoms for 10-14 days. Thus I discussed at length the use of Flonase, Neti pot and [id number] symptom control. Encouraged follow-up with her primary care provider. Did discussed doing blood work given her history of congestive heart failure to check BNP, but the patient declined. Encouraged patient to come back to emergency department for any acute concerns such as chest pain or shortness of breath. Patient had no questions or concerns upon discharge. She is hemodynamically stable and afebrile throughout her stay in the emergency department. Discharge Plan Departure Patient Disposition: Home Clinical Impression: Cough Upper respiratory infection Qualifiers: URI type: unspecified viral URI Qualified Code(s): J06.9 - Acute upper respiratory infection, unspecified Discharge Date/Time: 01/19/19 12:52 Interventions: ED Discharge Assessment Last Done: 01/19/19 12:52 Instructions: DI for Cough -- Adult, DI for Viral Upper Respiratory Infection -- Adult Activity Restrictions/Additional Instructions: Your x-ray shows no pneumonia. I suggest use of a Neti pot or Anthony med sinus rinse 3 times a day. I suggest Flonase twice a day for 3 days and then once a day in each nare. Flonase is available [id number]. I also suggest a decongestant, but be careful with Sudafed given your high blood pressure. Always keep in mind allergies may be causing this. Please come back to emergency department for any chest pain shortness of breath or acute concerns. Prescriptions: No Action torsemide 20 mg tablet 20 mg PO Q OTHER DAY RF: 0 allopurinol 300 mg tablet 300 mg PO DAILY RF: 0 colchicine [Colcrys] 0.6 mg tablet 0.6 mg PO DAILY PRN (Reason: Gout) RF: 0 gabapentin 300 mg capsule 600 mg PO QPM RF: 0 escitalopram oxalate 20 mg tablet 20 mg PO DAILY RF: 0 losartan 50 mg Tablet 25 mg PO DAILY RF: 0 metformin 500 mg Tablet 1,000 mg PO BID RF: 0 atorvastatin 20 mg Tablet 20 mg PO QPM RF: 0 glipizide 10 mg Tablet 20 mg PO QAM RF: 0 diltiazem HCl 300 mg Capsule,Extended Release 24 Hr 300 mg PO DAILY RF: 0 omeprazole 40 mg Capsule,Delayed Release(Dr/Ec) 40 mg PO DAILY RF: 0 nitroglycerin 0.4 mg Tablet, Sublingual 0.4 mg SUBLINGUAL DAILY PRN (Reason: Chest Pain) RF: 0 potassium chloride [Klor-Con 10] 10 mEq Tablet Extended Release 10 meq PO QPM RF: 0 isosorbide mononitrate 60 mg Tablet Extended Release 24 Hr 60 mg PO DAILY RF: 0 flecainide 100 mg Tablet 100 mg PO BID RF: 0 gabapentin 300 mg Capsule 300 mg PO QAM RF: 0 Referrals: Paul Peralta DO [Primary Care Provider] -
[2019-01-19 12:52] VITALS: BP 120/70; PULSE 72; RESP 16; O2SAT 95
== END 2019-01-19 12:52 | disposition home or self-care (01) ==
PROVIDERS: Emergency Provider Nurse Practitioner Family; Family Provider Orthopaedic Surgery; PCP Family Medicine
DX: J06.9 Acute upper respiratory infection, unspecified (principal); R06.02 Shortness of breath
CPT/HCPCS: 71046; 93005; 93010; 99283; 99284

== ENCOUNTER 2020-03-25 14:49 | Emergency (ER) | payer MEDICARE, OTHER, SELFPAY ==
[2020-03-25] VITALS (10 sets, daily range): BP systolic 135–187; BP diastolic 61–83; PULSE 70–92; RESP 12–20; TEMP 36.1; O2SAT 95–98; BMI 42.3
[2020-03-25 16:51] LABS: RBC Urine None Seen (0-5/HPF)
--- NOTE | 2020-03-25 16:51 | ED.GENADULT ---
HPI - General Adult General Chief complaint: Diabetic Problem Stated complaint: type 2 diabetic,states numbers are high Time Seen by Provider: 03/25/20 16:51 Source: patient Mode of arrival: Ambulatory Limitations: no limitations History of Present Illness HPI narrative: The patient has type 2 diabetes. She notes her glucose levels have been greater than 300 several times in recent weeks. He is on oral medications only, no insulin. She is supposed to be using metformin and glipizide, but has not been good about taking her medications. She has no headache, no visual changes, no chest pain or dyspnea. She denies GI or complaints. She has no neurologic disease. She does have a history of non-STEMI and CHF. She is currently not experiencing dyspnea, orthopnea. She does have a degree of peripheral edema. This seems to be adaily normal problem for her. Additionally, she has hypertension. Her blood pressure was greater than 180 upon arrival, without intervention improved to 139 systolic. She does complain of fatigue, she has no other complaints at this time. Related Data Home Medications Medication Instructions Recorded Confirmed atorvastatin 20 mg PO QPM 07/23/18 01/19/19 diltiazem HCl 300 mg PO DAILY 07/23/18 01/19/19 flecainide 100 mg PO BID 07/23/18 01/19/19 gabapentin 300 mg PO QAM 07/23/18 01/19/19 glipizide 20 mg PO QAM 07/23/18 01/19/19 isosorbide mononitrate 60 mg PO DAILY 07/23/18 01/19/19 losartan 25 mg PO DAILY 07/23/18 01/19/19 metformin 1,000 mg PO BID 07/23/18 01/19/19 nitroglycerin 0.4 mg SUBLINGUAL DAILY PRN 07/23/18 01/19/19 omeprazole 40 mg PO DAILY 07/23/18 01/19/19 potassium chloride [Klor-Con 10] 10 meq PO QPM 07/23/18 01/19/19 allopurinol 300 mg PO DAILY 11/26/18 01/19/19 colchicine [Colcrys] 0.6 mg PO DAILY PRN 11/26/18 01/19/19 escitalopram oxalate 20 mg PO DAILY 11/26/18 01/19/19 gabapentin 600 mg PO QPM 11/26/18 01/19/19 torsemide 20 mg PO Q OTHER DAY 11/26/18 01/19/19 Allergies Allergy/AdvReac Type Severity Reaction Status Date / Time adhesive tape [ADHESIVE TAPE] Allergy Intermediate WELTS/Itching Verified 03/25/20 15:11 PAPER/SILK TAPE OK iodine [IODINE] Allergy Mild ITCHY AND Verified 03/25/20 15:11 RASH UNLESS WASHED OF corn Allergy Swelling Verified 03/25/20 15:11 of Lip/Tongue/Throat codeine [CODEINE] AdvReac Intermediate ITCHY Verified 03/25/20 15:11 hydrocodone [HYDROCODONE] AdvReac Intermediate ITCHY Verified 03/25/20 15:11 oxycodone [OXYCODONE] AdvReac Intermediate ITCHY Verified 03/25/20 15:11 Review of Systems Review of Systems ROS Unobtainable: All systems reviewed & are unremarkable except as noted in HPI and below Constitutional Constitutional: Denies chills, Denies fever(s) and Reports lethargy Eyes Eyes: Denies change in vision, Denies eye discharge, Denies irritation and Denies loss of vision ENT Ears, Nose, Mouth, and Throat: Denies change in voice, Denies neck pain and Denies sore throat Cardiovascular Cardiovascular: Denies chest pain, Denies irregular heart rhythm, Denies lightheadedness, Denies palpitations and Denies dyspnea Respiratory Respiratory: Denies cough, Denies dyspnea and Denies wheezing Gastrointestinal Gastrointestinal: Denies abdominal pain, Denies change in bowel habits, Denies diarrhea, Denies nausea and Denies vomiting Genitourinary Genitourinary: Denies dysuria Genitourinary: Denies dysuria Musculoskeletal Musculoskeletal: Denies back pain and Denies neck pain Integumentary/Breasts Skin/Breast: Denies pruritus, Denies erythema, Denies rash and Denies wounds Neurologic Neurologic: Denies confusion and Denies loss of vision Comments: No focal numbness or weakness. Psychiatric Psychiatric: Denies anxiety, Denies confusion and Denies depression Endocrine Endocrine: Denies palpitations Comments: Hyperglycemia. Hematologic/Lymphatic Hematologic/Lymphatic: Denies easy bleeding and Denies easy bruising Allergic/Immunologic Allergic/Immunologic: Denies wheezing Patient History Medical History Actinic keratosis (Acute) Anemia (Acute) Arthritis of left acromioclavicular joint (Acute) Basal cell carcinoma (Acute) Cardiac murmur (Acute) GERD (gastroesophageal reflux disease) (Acute) History of squamous cell carcinoma (Acute) Hyperlipidemia (Acute) Hypertension (Acute) Obesity (BMI 30-39.9) (Acute) Osteoporosis (Acute) PVC (premature ventricular contraction) (Acute) Seborrheic keratosis (Acute) Skin lesion of back (Acute) Sleep apnea (Acute) Spina bifida occulta (Acute) ST segment abnormality (Acute ~08/2014) Tear of left rotator cuff (Acute) Type II diabetes mellitus (Acute) Valvular sclerosis (Acute) Surgical History History of appendectomy (Acute) History of arthroscopy of both knees (Acute) History of cholecystectomy (Acute) History of colonoscopy (Acute) History of esophagogastroduodenoscopy (EGD) (Acute) History of hysterectomy (Acute) History of repair of rotator cuff (Acute) History of total left hip arthroplasty (Acute) History of total right hip arthroplasty (Acute) Social History household members: spouse Smoking Status: Former smoker Smoking Status: Former smoker alcohol intake frequency: holidays/special occasions only Substance Use Type: does not use and other Exam Initial Vital Signs Initial Vital Signs: Vital Signs Temperature 97.0 F L 03/25/20 15:07 Pulse Rate 82 03/25/20 15:07 Respiratory Rate 16 03/25/20 15:07 Blood Pressure 135/61 03/25/20 15:07 Pulse Oximetry 97 03/25/20 15:07 Const General: cooperative and well developed Nutritional Appearance: well nourished [facility] Head: normocephalic and atraumatic Face and sinus: sinuses nontender and face symmetric Mouth: oral mucosae normal and moist mucous membranes Teeth and gingiva: dentition normal Throat: tonsils normal and uvula midline Eyes General: appearance normal, both eyes and all related structures Eyelids: eyelids normal Conjunctivae: conjunctivae normal Sclera: sclerae normal Pupils: PERRL EOM: EOM intact bilaterally Neck Neck: normal visual inspection, trachea midline and No JVD Lymphatic: No lymphedema Resp Effort & Inspection: normal respiratory effort and able to speak in complete sentences Auscultation: clear to auscultation bilaterally, no rales, no rhonchi and no wheezes Cardio Rate: regular rate Rhythm: regular rhythm Heart Sounds: no click, no gallops, no murmurs and no rubs Pulses: normal peripheral pulses GI Inspection: non-distended Palpation: soft, no hepatosplenomegaly, No guarding, No pulsatile mass and No tender Auscultation: normal bowel sounds Back/Spine/Pelvis Back: No CVA tenderness Cervical Spine: cervical ROM normal Thoracic/Lumbar Spine: thoracic and lumbar spine normal to inspection Skin General: no rashes or lesions noted, No jaundice and No petechiae Neuro General: patient alert, patient oriented x3, gait normal and no focal motor deficits Speech: speech normal Extrem General: full ROM, no pedal edema, no calf tenderness and edema (2+ bilateral lower extremity edema.) Psych Appearance: well kempt Mental Status: mental status grossly normal Attitude: cooperative Thought Content: normal and suicidality Judgment: judgment good Course Course Course Narrative: The patient's labs have been evaluated, her blood pressure has been monitored. The patient does not require immediate intact intervention. She is advised follow-up with her regular doctor about diabetes and blood pressure management. Orders Ordered: ED Orders 03/25/20 16:50 Urine Culture Stat Urine Microscopic Stat 03/25/20 17:25 Complete Blood Count AUTO DIFF Stat Comprehensive Metabolic Panel Stat Lipase Stat NT-proBNP (BNP-Adult 18+) Stat Troponin & CK Cardiac Panel Stat Sodium Chloride (Normal Saline 0.9%) 1,000 mls @ 150 mls/hr IV CONT MARISA Last Admin: 03/25/20 17:32 Dose: 150 mls/hr Documented by: URIEL Vital Signs Vital signs: Vital Signs - 8 hr 03/25/20 15:07 03/25/20 16:17 03/25/20 16:18 Temperature 97.0 F L Pulse Rate 82 92 H 90 Respiratory Rate 16 Blood Pressure 135/61 187/79 H Pulse Oximetry 97 97 97 03/25/20 16:30 03/25/20 17:00 03/25/20 17:01 Temperature Pulse Rate 73 77 74 Respiratory Rate Blood Pressure 178/77 H 183/83 H Pulse Oximetry 97 96 98 03/25/20 17:30 03/25/20 17:31 03/25/20 18:00 Temperature Pulse Rate 78 74 70 Respiratory Rate 20 12 17 Blood Pressure 148/67 H 139/61 Pulse Oximetry 97 98 95 Medical Decision Making Lab Data Result diagrams: 03/25/20 17:25 03/25/20 17:25 Labs: Lab Results 03/25/20 03/25/20 03/25/20 Range/Units 16:50 17:25 17:25 WBC 10.3 (4.5-11.0) X10^3/uL RBC 3.90 L (4.0-5.2) X10^6/uL Hgb 11.4 L (12.0-16.0) g/dL Hct 34.3 L (36-46) % MCV 88.1 (80-100) fL MCH 29.2 (26-34) PG MCHC 33.2 (30-36) % RDW 13.8 (11.6-14.8) % Plt Count 263 (150-400) X10^3/uL Neut % (Auto) 66.5 (50-75) % Lymph % (Auto) 22.3 L (25-40) % [place] % (Auto) 4.7 (3-14) % Eos % (Auto) 5.7 H (2-4) % Baso % (Auto) 0.8 (0-2) % Neut # (Auto) 6900 (2111-5820) /uL Lymph # (Auto) 2300 (0571-0792) /uL [place] # (Auto) 500 (0-900) /uL Eos # (Auto) 600 H (0-450) /uL Baso # (Auto) 100 (0-100) /uL Sodium 132 L (137-145) mmol/L Potassium 4.4 (3.4-5.1) mmol/L Chloride 95 L (98-107) mmol/L Carbon Dioxide 27 (22-32) mmol/L BUN 42 H (7-17) mg/dL Creatinine 1.75 H (0.52-1.04) mg/dL Estimated GFR 28.9 L (>60) mL/min BUN/Creatinine Ratio 24.0 H (6-22) Glucose 377 H (80-110) mg/dL Calcium 9.1 (8.4-10.2) mg/dL Total Bilirubin 0.3 (0.2-1.3) mg/dL AST 19 (14-36) IU/L ALT 25 (<35) IU/L Alkaline Phosphatase 121 (38-126) U/L Total Creatine Kinase (30-135) U/L CK-MB (CK-2) CK-MB (CK-2) Rel Index Troponin I (0.01-0.034) ng/mL NT-Pro-B Natriuret Pep (<125) pg/mL Total Protein 6.8 (6.3-8.2) g/dL Albumin 4.0 (3.5-5.0) g/dL Globulin 2.8 (1.7-4.1) g/dL Albumin/Globulin Ratio 1.4 (1.0-2.8) Lipase 118 (23-300) U/L Urine RBC None seen (0-5/HPF) Urine WBC 1-5/hpf (0-5/HPF) Ur Squamous Epith Cells 1-5 /hpf (0-5/HPF) Urine Bacteria Few (2-10) H (None) Ur Culture Indicated? Specimen cultured 03/25/20 Range/Units 17:25 WBC (4.5-11.0) X10^3/uL RBC (4.0-5.2) X10^6/uL Hgb (12.0-16.0) g/dL Hct (36-46) % MCV (80-100) fL MCH (26-34) PG MCHC (30-36) % RDW (11.6-14.8) % Plt Count (150-400) X10^3/uL Neut % (Auto) (50-75) % Lymph % (Auto) (25-40) % [place] % (Auto) (3-14) % Eos % (Auto) (2-4) % Baso % (Auto) (0-2) % Neut # (Auto) (9008-5061) /uL Lymph # (Auto) (7450-4420) /uL [place] # (Auto) (0-900) /uL Eos # (Auto) (0-450) /uL Baso # (Auto) (0-100) /uL Sodium (137-145) mmol/L Potassium (3.4-5.1) mmol/L Chloride (98-107) mmol/L Carbon Dioxide (22-32) mmol/L BUN (7-17) mg/dL Creatinine (0.52-1.04) mg/dL Estimated GFR (>60) mL/min BUN/Creatinine Ratio (6-22) Glucose (80-110) mg/dL Calcium (8.4-10.2) mg/dL Total Bilirubin (0.2-1.3) mg/dL AST (14-36) IU/L ALT (<35) IU/L Alkaline Phosphatase (38-126) U/L Total Creatine Kinase 70 (30-135) U/L CK-MB (CK-2) TNP CK-MB (CK-2) Rel Index TNP Troponin I < 0.012 (0.01-0.034) ng/mL NT-Pro-B Natriuret Pep 90 (<125) pg/mL Total Protein (6.3-8.2) g/dL Albumin (3.5-5.0) g/dL Globulin (1.7-4.1) g/dL Albumin/Globulin Ratio (1.0-2.8) Lipase (23-300) U/L Urine RBC (0-5/HPF) Urine WBC (0-5/HPF) Ur Squamous Epith Cells (0-5/HPF) Urine Bacteria (None) Ur Culture Indicated? Point of Care Testing Glucose POC 353 Urine Dip Bedside Urine Glucose 1000 mg/dl Bedside Urine Bilirubin + 1 Bedside Urine Ketone - Negative Urine Specific [place] 1.025 Bedside Urine Occult Blood - Negative Bedside Urine pH 5.5 Bedside Urine Protein +/- 15 Bedside Urine Urobilinogen - Negative Bedside Urine Nitrite - Negative Bedside Urine Leukocytes - Negative Esterase Point of care testing: Point of Care Testing Glucose POC 353 Urine Dip Bedside Urine Glucose 1000 mg/dl Bedside Urine Bilirubin + 1 Bedside Urine Ketone - Negative Urine Specific [place] 1.025 Bedside Urine Occult Blood - Negative Bedside Urine pH 5.5 Bedside Urine Protein +/- 15 Bedside Urine Urobilinogen - Negative Bedside Urine Nitrite - Negative Bedside Urine Leukocytes - Negative Esterase ECG Data Attestation: I personally reviewed and interpreted this ECG as follows: (Normal sinus rhythm rate 70 beats per minute. No ectopy. Normal intervals. No acute ST T wave changes.) Discharge Plan Departure Patient Disposition: Home Clinical Impression: Benign essential hypertension Type 2 diabetes mellitus Qualifiers: Diabetes mellitus [facility] insulin use: without lobsterman use Diabetes mellitus complication status: without complication Qualified Code(s): E11.9 - Type 2 diabetes mellitus without complications Instructions: Essential Hypertension, DI for Diabetes Type 2 Activity Restrictions/Additional Instructions: Try to adhere to a diabetic diet, restricting carbohydrates. Drink plenty of water, attempt to exercise regularly. Follow-up with your ceramic designer as scheduled, call him directly if you have ongoing issues with glucose greater than 300. Return the ER as needed. Prescriptions: No Action torsemide 20 mg tablet 20 mg PO Q OTHER DAY RF: 0 allopurinol 300 mg tablet 300 mg PO DAILY RF: 0 colchicine [Colcrys] 0.6 mg tablet 0.6 mg PO DAILY PRN (Reason: Gout) RF: 0 gabapentin 300 mg capsule 600 mg PO QPM RF: 0 escitalopram oxalate 20 mg tablet 20 mg PO DAILY RF: 0 losartan 50 mg Tablet 25 mg PO DAILY RF: 0 metformin 500 mg Tablet 1,000 mg PO BID RF: 0 atorvastatin 20 mg Tablet 20 mg PO QPM RF: 0 glipizide 10 mg Tablet 20 mg PO QAM RF: 0 diltiazem HCl 300 mg Capsule,Extended Release 24 Hr 300 mg PO DAILY RF: 0 omeprazole 40 mg Capsule,Delayed Release(Dr/Ec) 40 mg PO DAILY RF: 0 nitroglycerin 0.4 mg Tablet, Sublingual 0.4 mg SUBLINGUAL DAILY PRN (Reason: Chest Pain) RF: 0 potassium chloride [Klor-Con 10] 10 mEq Tablet Extended Release 10 meq PO QPM RF: 0 isosorbide mononitrate 60 mg Tablet Extended Release 24 Hr 60 mg PO DAILY RF: 0 flecainide 100 mg Tablet 100 mg PO BID RF: 0 gabapentin 300 mg Capsule 300 mg PO QAM RF: 0 Referrals: Paul Peralta DO [Primary Care Provider] -
[2020-03-25 16:53] LABS: Bacteria Urine Few (2-10); Culture Indicated Urine Specimen Cultured; Squamous Epithelial Cell Urine 1-5 /HPF (0-5/HPF); WBC Urine 1-5/HPF (0-5/HPF)
--- NOTE | 2020-03-25 17:06 | PC.NURSE ---
patient came into the ED today because she tried to stop taking her medication for t2dm and started having high blood sugar levels. After one month of no medication she decided to start taking her meds again and has no been able to gain control since. She took her metformin and glipizide this morning.
[2020-03-25 17:32] LABS: Add Manual Diff / Slide Review NO; Basophils Absolute Auto 100 /uL (0-100); Basophils Percent Auto 0.8 % (0-2); Eosinophils Absolute Auto 600 /uL (0-450); Eosinophils Percent Auto 5.7 % (2-4); Hematocrit 34.3 % (36-46); Hemoglobin 11.4 g/dL (12.0-16.0); Lymphocytes Absolute Auto 2300 /uL (1100-4500); Lymphocytes Percent Auto 22.3 % (25-40); Mean Corpuscular HGB Conc 33.2 % (30-36); Mean Corpuscular Hemoglobin 29.2 PG (26-34); Mean Corpuscular Volume 88.1 fL (80-100); Monocytes Absolute Auto 500 /uL (0-900); Monocytes Percent Auto 4.7 % (3-14); Neutrophils Absolute Auto 6900 /uL (1500-7000); Neutrophils Percent Auto 66.5 % (50-75); Platelet Count 263 X10^3/uL (150-400); Red Cell Distribution Width 13.8 % (11.6-14.8); White Blood Cell Count 10.3 X10^3/uL (4.5-11.0)
[2020-03-25] MEDS: SODIUM CHLORIDE 0.9% 1,000 ML 150 ML IV (17:32)
[2020-03-25 17:42] LABS: Alanine Aminotransferase 25 IU/L (<35); Albumin Globulin Ratio 1.4 (1.0-2.8); Alkaline Phosphatase 121 U/L (38-126); Aspartate Aminotransferase 19 IU/L (14-36); Bilirubin Total 0.3 mg/dL (0.2-1.3); Blood Urea Nitrogen 42 mg/dL (7-17); Calcium 9.1 mg/dL (8.4-10.2); Carbon Dioxide 27 mmol/L (22-32); Chloride 95 mmol/L (98-107); Estimated Glomerular Filt Rate 28.9 mL/min (>60); Globulin 2.8 g/dL (1.7-4.1); Glucose 377 mg/dL (80-110); HEMOLYSIS < 15 (0-50); Lipase 118 U/L (23-300); Potassium 4.4 mmol/L (3.4-5.1); Sodium 132 mmol/L (137-145); Total Protein 6.8 g/dL (6.3-8.2)
[2020-03-25 18:02] LABS: Creatine Kinase 70 U/L (30-135)
[2020-03-25 18:15] LABS: NT-proBNP (BNP-Adult 18+) 90 pg/mL (<125); Troponin I < 0.012 ng/mL (0.01-0.034)
== END 2020-03-25 19:00 | disposition home or self-care (01) ==
PROVIDERS: Emergency Provider Emergency Medicine; Family Provider Orthopaedic Surgery; PCP Family Medicine
DX: I10 Essential (primary) hypertension (principal); E11.65 Type 2 diabetes mellitus with hyperglycemia; R60.9 Edema, unspecified
CPT/HCPCS: 36415; 80053; 81003; 81015; 82550; 83690; 83880; 84484; 85025; 87086; 93005; 99284

== ENCOUNTER → 2020-11-08 12:23 | Outpatient (CLI) | payer MEDICARE, OTHER, SELFPAY ==
--- NOTE | 2020-11-08 12:26 | DI.MG.S_ITS ---
BILATERAL DIGITAL SCREENING MAMMOGRAM 3D/2D WITH CAD: 11/08/2020 CLINICAL: Baseline exam. Routine screening. No prior exams were available for comparison. The tissue of both breasts is predominantly fatty. Current study was also evaluated with a Computer Aided Detection (CAD) system. There is a 1 cm x 0.4 cm irregular asymmetry in the right breast middle depth central to the nipple seen on the mediolateral oblique view only 5.5 cm from the nipple. No other significant masses, calcifications, or other findings are seen in either breast. IMPRESSION: INCOMPLETE: NEEDS ADDITIONAL IMAGING EVALUATION The 1 cm x 0.4 cm irregular asymmetry in the right breast is indeterminate. Additional views with possible ultrasound are recommended. This exam was interpreted at Station ID: [id number]. NOTE: For mammograms, a report in lay terms will be sent to the patient. Approximately 15% of breast malignancies will not be visualized mammographically. In the management of a palpable breast mass, a negative mammogram must not discourage biopsy of a clinically suspicious lesion. Electronically Signed By: Scto Cabrera acr/:11/08/2020 12:55:45 letter sent: Additional Imaging Needed ACR BI-RADS Category 0: Incomplete 3340F
== END ==
PROVIDERS: Family Provider Orthopaedic Surgery; PCP Family Medicine; Referring Provider Internal Medicine; Visit Provider Internal Medicine
DX: Z12.31 Encounter for screening mammogram for malignant neoplasm of breast (principal); Z13.820 Encounter for screening for osteoporosis; Z78.0 Asymptomatic menopausal state; E11.9 Type 2 diabetes mellitus without complications; Z87.891 Personal history of nicotine dependence; Z82.62 Family history of osteoporosis
CPT/HCPCS: 77063; 77067; 77080

== ENCOUNTER → 2020-11-23 14:43 | Outpatient (CLI) | payer MEDICARE, OTHER, SELFPAY ==
--- NOTE | 2020-11-23 14:45 | DI.MG.S_ITS ---
UNILATERAL RIGHT DIGITAL DIAGNOSTIC MAMMOGRAM 3D/2D WITH ADDITIONAL VIEWS: 11/23/2020 CLINICAL: Additional evaluation requested from prior study. Comparison is made to exam dated: 11/08/2020 mammogram - [facility]. The tissue of right breast is predominantly fatty. Previously questioned asymmetry dissipates with spot compression. No other significant masses or calcifications are seen in the breast. IMPRESSION: BENIGN The 1 cm x 0.4 cm asymmetry in the right breast dissipated with spot compression, indicating that it represented superimposition of fibroglandular tissue on the prior study. There is no mammographic evidence of malignancy. Return to annual mammogram screening schedule is recommended. This exam was interpreted at Station ID: [id number]. NOTE: For mammograms, a report in lay terms will be sent to the patient. Approximately 15% of breast malignancies will not be visualized mammographically. In the management of a palpable breast mass, a negative mammogram must not discourage biopsy of a clinically suspicious lesion. Electronically Signed By: Carlos Yañez M.D. jr/:11/23/2020 15:08:44 letter sent: Normal Exam ACR BI-RADS Category 2: Benign Finding(s) 3342F
== END ==
PROVIDERS: Family Provider Orthopaedic Surgery; PCP Internal Medicine; Referring Provider Internal Medicine; Visit Provider Internal Medicine
DX: R92.8 Other abnormal and inconclusive findings on diagnostic imaging of breast (principal)
CPT/HCPCS: 77065; G0279

== ENCOUNTER 2022-01-29 19:46 | Emergency (ER) | payer MEDICARE, OTHER, SELFPAY ==
[2022-01-29 19:59] VITALS: BP 191/81; PULSE 80; RESP 22; TEMP 36.7; O2SAT 98
--- NOTE | 2022-01-29 20:10 | DI.RAD.S_ITS ---
PROCEDURE: XR FOOT LT MIN 3V INDICATIONS: fb glass TECHNIQUE: 3 views of the foot were acquired. COMPARISON: [facility], , FOOT 3V LEFT, 06/06/2010, 16:39. FINDINGS: Bones: No fractures or dislocations. 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 There is mild degeneration at the 1st metatarsophalangeal joint. No suspicious bony lesions. Soft tissues: There is a small linear density within the plantar soft tissues measuring approximately 0.2 cm compatible with a small radiopaque foreign body. There is plantar soft tissue swelling within the hindfoot. There is also dorsal soft tissue swelling in the forefoot. IMPRESSION: 1. Small linear density within the plantar soft tissues compatible with suspected radiopaque foreign body. 2. No fracture or dislocation. 3. 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 Dictated by: Raul Grover M.D. on 01/29/2022 at 20:53 Approved by: Raul Grover M.D. on 01/29/2022 at 20:55
--- NOTE | 2022-01-29 21:12 | ED_ITS ---
HPI - Wound/Laceration General Chief Complaint: Wound/Laceration Stated Complaint: glass in left heel Time Seen by Provider: 01/29/22 20:19 Source: patient Mode of arrival: Ambulatory History of Present Illness HPI narrative: Patient is a 71-year-old female. Does have a history of diabetes. Was walking around barefoot when she stepped on a piece of broken glass. Does have a small wound on the bottom of her left foot and has concerned about a retained piece of glass in the area. Related Data Home Medications Medication Instructions Recorded Confirmed atorvastatin 20 mg tablet 20 mg PO QPM 07/23/18 01/19/19 diltiazem HCl 300 mg capsule,24 300 mg PO DAILY 07/23/18 01/19/19 hr,extended release flecainide 100 mg tablet 100 mg PO BID 07/23/18 01/19/19 gabapentin 300 mg capsule 300 mg PO QAM 07/23/18 01/19/19 glipizide 10 mg tablet 20 mg PO QAM 07/23/18 01/19/19 isosorbide mononitrate 60 mg 60 mg PO DAILY 07/23/18 01/19/19 tablet,extended release 24 hr losartan 50 mg tablet 25 mg PO DAILY 07/23/18 01/19/19 metformin 500 mg tablet 1,000 mg PO BID 07/23/18 01/19/19 nitroglycerin 0.4 mg sublingual 0.4 mg SUBLINGUAL DAILY PRN 07/23/18 01/19/19 tablet omeprazole 40 mg capsule,delayed 40 mg PO DAILY 07/23/18 01/19/19 release potassium chloride 10 mEq 10 meq PO QPM 07/23/18 01/19/19 tablet,extended release (Klor-Con) allopurinol 300 mg tablet 300 mg PO DAILY 11/26/18 01/19/19 colchicine 0.6 mg tablet 0.6 mg PO DAILY PRN 11/26/18 01/19/19 escitalopram oxalate 20 mg tablet 20 mg PO DAILY 11/26/18 01/19/19 gabapentin 300 mg capsule 600 mg PO QPM 11/26/18 01/19/19 torsemide 20 mg tablet 20 mg PO Q OTHER DAY 11/26/18 01/19/19 Allergies Allergy/AdvReac Type Severity Reaction Status Date / Time adhesive tape [ADHESIVE TAPE] Allergy Intermediate WELTS/Itching Verified 03/25/20 15:11 PAPER/SILK TAPE OK iodine [IODINE] Allergy Mild ITCHY AND Verified 03/25/20 15:11 RASH UNLESS WASHED OF corn Allergy Swelling Verified 03/25/20 15:11 of Lip/Tongue/Throat codeine [CODEINE] AdvReac Intermediate ITCHY Verified 03/25/20 15:11 hydrocodone [HYDROCODONE] AdvReac Intermediate ITCHY Verified 03/25/20 15:11 oxycodone [OXYCODONE] AdvReac Intermediate ITCHY Verified 03/25/20 15:11 Review of Systems Musculoskeletal Musculoskeletal: Reports system reviewed and no additional complaints, except as documented Integumentary/Breasts Skin/Breast: Reports system reviewed and no additional complaints, except as documented Neurologic Neurologic: Reports system reviewed and no additional complaints, except as documented Hematologic/Lymphatic On Anticoagulants: No Patient History Medical History Actinic keratosis Anemia Arthritis of left acromioclavicular joint Basal cell carcinoma Cardiac murmur GERD (gastroesophageal reflux disease) History of squamous cell carcinoma Hyperlipidemia Hypertension Obesity (BMI 30-39.9) Osteoporosis PVC (premature ventricular contraction) Seborrheic keratosis Skin lesion of back Sleep apnea Spina bifida occulta ST segment abnormality (~08/2014) Tear of left rotator cuff Type II diabetes mellitus Valvular sclerosis Surgical History History of appendectomy History of arthroscopy of both knees History of cholecystectomy History of colonoscopy History of esophagogastroduodenoscopy (EGD) History of hysterectomy History of repair of rotator cuff History of total left hip arthroplasty History of total right hip arthroplasty Social History household members: spouse Smoking Status: Former smoker Smoking Status: Former smoker alcohol intake frequency: holidays/special occasions only Substance Use Type: does not use and other Exam Initial Vital Signs Initial Vital Signs: Vital Signs Temperature 98.0 F 01/29/22 19:59 Pulse Rate 80 01/29/22 19:59 Respiratory Rate 22 01/29/22 19:59 Blood Pressure 191/81 H 01/29/22 19:59 Pulse Oximetry 98 01/29/22 19:59 Const General: cooperative and healthy appearing Skin Other: Patient with a small wound on the heel of her left foot. No active bleeding. No surrounding erythema. Neuro Sensory Exam: no sensory deficits noted Extrem Other: Small wound to the bottom of left foot Procedures Foreign Body OTHER Foreign Body Removal Site: left and foot Description of foreign body: other (Piece of glass) Sedation/Analgesia: none Technique: removal with forceps Confirmed by:: direct visualization Complications: none Post-procedure exam: awake, alert Neurovascular: other (Unchanged) Course Orders Ordered: ED Orders 01/29/22 20:10 XR foot LT min 3V Stat Vital Signs Vital signs: Vital Signs - 8 hr 01/29/22 19:59 01/29/22 21:31 Temperature 98.0 F Pulse Rate 80 82 Respiratory Rate 22 20 Blood Pressure 191/81 H 178/80 H Pulse Oximetry 98 98 MDM - Wound/Laceration Imaging Data Extremity x-ray #1: Radiologist's Impression: [address] [address] XRay Report Signed Patient: Sherry Mcknight MR#: [id number] : 1950 Acct:[id number] Age/Sex: 71 / F Date of Service: 01/29/22 Loc: ED Accession Number: [id number] ?? Procedure: XR foot LT min 3V Ordering Provider: Darío Armijo D.O. PROCEDURE:? XR FOOT LT MIN 3V ? INDICATIONS:? fb glass ? TECHNIQUE:? 3 views of the foot were acquired.? ? COMPARISON:? [facility], , FOOT 3V LEFT, 06/06/2010, 16:39. ? FINDINGS:? ? Bones:? No fractures or dislocations.? There is moderate to severe midfoot degeneration along the 2nd through 5th tarsometatarsal joints.? There is mild degeneration at the 1st metatarsophalangeal joint.? No suspicious bony lesions.? ? Soft tissues:? There is a small linear density within the plantar soft tissues measuring approximately 0.2 cm compatible with a small radiopaque foreign body.? There is plantar soft tissue swelling within the hindfoot.? There is also dorsal soft tissue swelling in the forefoot. ? ? IMPRESSION:? ? 1. Small linear density within the plantar soft tissues compatible with suspected radiopaque foreign body. ? 2. No fracture or dislocation. ? 3. 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 ? ? Dictated by: Raul Grover M.D. on 01/29/2022 at 20:53 ? ? Approved by: Raul Grover M.D. on 01/29/2022 at 20:55?? [facility] Narrative Medical decision making narrative: There was a small wound on the bottom of the left foot and a small piece of glass was observed and felt in this area. Was easily removed with a pair of forceps. There was no signs of any infection. Patient was given care instructions and return precautions. She expressed understanding and agreement. Discharge Plan Departure Patient Disposition: Home Clinical Impression: Foreign body in foot, left Instructions: DI for Removal of Foreign Body From Skin Activity Restrictions/Additional Instructions: I do recommend that you keep your foot clean and keep monitoring for any signs of infection. Return to the emergency department for any new or worsening symptoms. Prescriptions: No Action torsemide 20 mg tablet 20 mg PO Q OTHER DAY 0RF allopurinol 300 mg tablet 300 mg PO DAILY 0RF colchicine [Colcrys] 0.6 mg tablet 0.6 mg PO DAILY PRN (Reason: Gout) 0RF gabapentin 300 mg capsule 600 mg PO QPM 0RF Label Comments: patient states ran out escitalopram oxalate 20 mg tablet 20 mg PO DAILY 0RF losartan 50 mg Tablet 25 mg PO DAILY 0RF metformin 500 mg Tablet 1,000 mg PO BID 0RF atorvastatin 20 mg Tablet 20 mg PO QPM 0RF glipizide 10 mg Tablet 20 mg PO QAM 0RF diltiazem HCl 300 mg Capsule,Extended Release 24 Hr 300 mg PO DAILY 0RF omeprazole 40 mg Capsule,Delayed Release(Dr/Ec) 40 mg PO DAILY 0RF nitroglycerin 0.4 mg Tablet, Sublingual 0.4 mg SUBLINGUAL DAILY PRN (Reason: Chest Pain) 0RF potassium chloride [Klor-Con 10] 10 mEq Tablet Extended Release 10 meq PO QPM 0RF isosorbide mononitrate 60 mg Tablet Extended Release 24 Hr 60 mg PO DAILY 0RF flecainide 100 mg Tablet 100 mg PO BID 0RF gabapentin 300 mg Capsule 300 mg PO QAM 0RF Label Comments: patient states ran out Referrals: Riley Clayton MD [Primary Care Provider] -
[2022-01-29 21:31] VITALS: BP 178/80; PULSE 82; RESP 20; O2SAT 98
== END 2022-01-29 21:33 | disposition home or self-care (01) ==
PROVIDERS: Emergency Provider Emergency Medicine; Family Provider Orthopaedic Surgery; PCP Internal Medicine
DX: S91.322A Laceration with foreign body, left foot, initial encounter (principal); W45.8XXA Other foreign body or object entering through skin, initial encounter; W25.XXXA Contact with sharp glass, initial encounter
CPT/HCPCS: 73630; 99281; 99283

== ENCOUNTER 2022-04-16 10:09 | Emergency (ER) | payer MEDICARE, OTHER, SELFPAY ==
[2022-04-16] VITALS (21 sets, daily range): BP systolic 127–225; BP diastolic 60–90; PULSE 60–82; RESP 18–26; TEMP 36.7; O2SAT 96–100; BMI 40.4
--- NOTE | 2022-04-16 10:32 | DI.RAD.S_ITS ---
PROCEDURE: XR CHEST 1V INDICATIONS: chest pain TECHNIQUE: One view of the chest was acquired. COMPARISON: [facility], JOSE C, XR CHEST 2V, 01/19/2019, 10:58. [facility], JOSE C, CHEST 1 VIEW, 08/06/2015, 8:46. FINDINGS: Surgical changes and devices: None. Lungs and pleura: Lungs are clear. No pleural effusions or pneumothorax. Mediastinum: Mediastinal contours appear normal. Heart size is at the upper limit of normal. Bones and chest wall: No suspicious bony lesions. Overlying soft tissues appear unremarkable. IMPRESSION: No acute radiographic abnormality. Heart size is at the upper limit of normal. Dictated by: Héctor Rose M.D. on 04/16/2022 at 10:56 Approved by: Héctor Rose M.D. on 04/16/2022 at 10:57
[2022-04-16 11:02] LABS: Add Manual Diff / Slide Review NO; Basophils Absolute Auto 100 /uL (0-100); Eosinophils Absolute Auto 700 /uL (0-450); Eosinophils Percent Auto 7.3 % (2-4); Hematocrit 36.3 % (36-46); Hemoglobin 12.2 g/dL (12.0-16.0); Lymphocytes Absolute Auto 1600 /uL (1100-4500); Mean Corpuscular HGB Conc 33.5 % (30-36); Mean Corpuscular Hemoglobin 28.3 PG (26-34); Mean Corpuscular Volume 84.4 fL (80-100); Monocytes Absolute Auto 500 /uL (0-900); Monocytes Percent Auto 5.6 % (3-14); Neutrophils Absolute Auto 6200 /uL (1500-7000); Neutrophils Percent Auto 68.1 % (50-75); Platelet Count 268 X10^3/uL (150-400)
[2022-04-16 11:22] LABS: Alanine Aminotransferase 22 IU/L (<35); Albumin Globulin Ratio 1.2 (1.0-2.8); Alkaline Phosphatase 108 U/L (38-126); Aspartate Aminotransferase 19 IU/L (14-36); BUN Creatinine Ratio 21.8 (6-22); Bilirubin Total 0.2 mg/dL (0.2-1.3); Blood Urea Nitrogen 24 mg/dL (7-17); Calcium 8.9 mg/dL (8.4-10.2); Carbon Dioxide 27 mmol/L (22-32); Chloride 102 mmol/L (98-107); Creatine Kinase 103 U/L (30-135); Estimated Glomerular Filt Rate 54 mL/min (>60); Globulin 3.3 g/dL (1.7-4.1); Glucose 279 mg/dL (80-110); HEMOLYSIS < 15 (0-50); Lipase 81 U/L (23-300); Magnesium 1.6 mg/dL (1.6-2.3); Potassium 4.3 mmol/L (3.4-5.1); Sodium 137 mmol/L (137-145); Total Protein 7.3 g/dL (6.3-8.2)
[2022-04-16 11:33] LABS: Troponin I 0.012 ng/mL (0.01-0.034)
[2022-04-16 11:37] LABS: CKMB % Relative Index 1.9 % (1.5-5.0); Creatine Kinase MB 1.93 ng/mL (<2.37)
--- NOTE | 2022-04-16 11:47 | ED_ITS ---
HPI - Chest Pain General Chief Complaint: Chest Pain Stated Complaint: sob,irregular heartbeat,lt side aches, took nitro Time Seen by Provider: 04/16/22 11:44 Source: patient and family Mode of arrival: Ambulatory Limitations: no limitations History of Present Illness HPI narrative: This is a 71-year-old female with history of prior NSTEMI, CHF, diabetes type 2 patient states that today she was driving to [place] about 730 in the morning developed chest pain substernal little bit to the left. Patient states that she took a nitro sublingual on the way home and it did not resolve her symptoms but did make it better. She states she does occasionally get chest pain if it is very intense she will take a nitro sublingually usually makes it resolve. She states if it is very mild she does not normally take a nitro. She describes it as dull ache, substernal radiating to the left earlier on her chest but now just substernal. She denies any new shortness of breath and states she is always short of breath. She had some nausea this morning, no vomiting. No diaphoresis. No swelling. She had some dizziness earlier today before she took the nitro but states she is always dizzy. No fevers or chills. No cold, cough or congestion. No issues with bowel movements such as diarrhea constipation. No urinary symptoms. Patient states she does follow with Cardiology, Dr. conklin in in [place] at [facility]. No prior cardiac stents but states she is had stress testing in the last year so. She is unsure of all her medications but does know she takes losartan and isosorbide she denies any anticoagulants or aspirin. She has had no cardiac interventions but cholecystectomy, hysterectomy, hip replacement, shoulder surgery and appendectomy. She states codeine makes her itch. No tobacco, occasional alcohol she had a glass last night. No illicit. Her primary care is Dr. Clayton. Related Data Home Medications Medication Instructions Recorded Confirmed atorvastatin 20 mg tablet 20 mg PO QPM 07/23/18 04/16/22 diltiazem HCl 300 mg capsule,24 300 mg PO DAILY 07/23/18 04/16/22 hr,extended release glipizide 10 mg tablet 20 mg PO QAM 07/23/18 04/16/22 isosorbide mononitrate 60 mg 60 mg PO DAILY 07/23/18 04/16/22 tablet,extended release 24 hr metformin 500 mg tablet 1,000 mg PO BID 07/23/18 04/16/22 nitroglycerin 0.4 mg sublingual 0.4 mg sublingual DAILY PRN Chest 07/23/18 04/16/22 tablet Pain omeprazole 40 mg capsule,delayed 40 mg PO DAILY 07/23/18 04/16/22 release potassium chloride 10 mEq 10 meq PO QPM 07/23/18 04/16/22 tablet,extended release (Klor-Con) allopurinol 300 mg tablet 300 mg PO DAILY 11/26/18 04/16/22 colchicine 0.6 mg tablet 0.6 mg PO DAILY PRN Gout 11/26/18 04/16/22 escitalopram oxalate 20 mg tablet 20 mg PO DAILY 11/26/18 04/16/22 gabapentin 300 mg capsule 600 mg PO QPM 11/26/18 04/16/22 torsemide 20 mg tablet 40 mg PO DAILY 11/26/18 04/16/22 amitriptyline 10 mg tablet 10 mg PO QPM 04/16/22 04/16/22 clotrimazole 1 % topical cream 1 applic topical BID PRN Rash 04/16/22 04/16/22 flecainide 150 mg tablet 150 mg PO BID 04/16/22 04/16/22 fluticasone propionate 50 1 spray intranasal DAILY PRN 04/16/22 04/16/22 mcg/actuation nasal Allergy Symptoms spray,suspension (Allergy Relief (fluticasone)) indomethacin 25 mg capsule 25 mg PO DAILY 04/16/22 04/16/22 insulin glargine 100 unit/mL (3 56 unit SUBCUT DAILY 04/16/22 04/16/22 mL) subcutaneous pen (Lantus Solostar U-100 Insulin) losartan 100 mg tablet mg 04/16/22 magnesium oxide 500 mg capsule 500 mg PO BID 04/16/22 04/16/22 pramipexole 0.125 mg tablet 0.125 mg PO 04/16/22 (Mirapex) sertraline 50 mg tablet (Zoloft) 50 mg PO DAILY 04/16/22 04/16/22 vitamin K2 100 mcg capsule 100 mcg PO DAILY 04/16/22 04/16/22 Allergies Allergy/AdvReac Type Severity Reaction Status Date / Time adhesive tape [ADHESIVE TAPE] Allergy Intermediate WELTS/Itching Verified 03/25/20 15:11 PAPER/SILK TAPE OK iodine [IODINE] Allergy Mild ITCHY AND Verified 03/25/20 15:11 RASH UNLESS WASHED OF corn Allergy Swelling Verified 03/25/20 15:11 of Lip/Tongue/Throat codeine [CODEINE] AdvReac Intermediate ITCHY Verified 03/25/20 15:11 hydrocodone [HYDROCODONE] AdvReac Intermediate ITCHY Verified 03/25/20 15:11 oxycodone [OXYCODONE] AdvReac Intermediate ITCHY Verified 03/25/20 15:11 Review of Systems Review of Systems ROS Unobtainable: All systems reviewed & are unremarkable except as noted in HPI and below Patient History Medical History (Updated 04/16/22 @ 14:47 by Tamica Reinoso DO) Actinic keratosis Anemia Arthritis of left acromioclavicular joint Basal cell carcinoma Cardiac murmur GERD (gastroesophageal reflux disease) History of squamous cell carcinoma Hyperlipidemia Hypertension Obesity (BMI 30-39.9) Osteoporosis PVC (premature ventricular contraction) Seborrheic keratosis Skin lesion of back Sleep apnea Spina bifida occulta ST segment abnormality (~08/2014) Tear of left rotator cuff Type II diabetes mellitus Valvular sclerosis Surgical History History of appendectomy History of arthroscopy of both knees History of cholecystectomy History of colonoscopy History of esophagogastroduodenoscopy (EGD) History of hysterectomy History of repair of rotator cuff History of total left hip arthroplasty History of total right hip arthroplasty Social History household members: spouse Smoking Status: Former smoker Smoking Status: Former smoker alcohol intake frequency: holidays/special occasions only Substance Use Type: does not use and other Exam Narrative Exam Narrative: GENERAL: Alert and oriented x three, female in mild distress HEENT: Head normocephalic, atraumatic, EOMI, pupils reactive, face symmetric, moist mucous membranes NECK: Supple, full range of motion CARDIOVASCULAR: Regular rate and rhythm without murmurs, rubs or gallops. No JVD. Trace edema bilateral lower extremities. RESPIRATORY: Breath sounds equal bilaterally, no wheezes rales or rhonchi. ABDOMEN: Soft, nontender. Normoactive bowel sounds all 4 quadrants. No guarding or rebound, rigidity, no mass : No CVA tenderness EXTREMITIES: Normal range of motion. Neurovascularly intact NEUROLOGICAL: Cranial nerves II through XII grossly intact. Moving all extremities SKIN: Warm, dry, no petechiae, no rashes or lesions. Initial Vital Signs Initial Vital Signs: Vital Signs Pulse Rate 70 04/16/22 10:23 Pulse Oximetry 99 04/16/22 10:23 Course Orders Ordered: Discontinued Medications Nitroglycerin (Nitroglycerin 0.4 Mg Sl Tab) 0.4 mg SL [id number] PRN PRN Reason: Chest Pain Last Admin: 04/16/22 12:27 Dose: 0.4 mg Documented By: Admin: 04/16/22 12:17 Dose: 0.4 mg Documented By: CHANO Consultations Consultation #1: Dr. Weber cardiology [place]. Reviewed patient's findings today he states some probably have to meet with the patient to do see if continue to treat her medically verses discussion regarding future catheterization he suspects it is more vasospasm today she had recent stress testing in December which was reassuring from a atherosclerotic aspect. He states if patient feels comfortable to return home can increase her Imdur from 60 mg to 120 mg and follow outpatient. Vital Signs Vital signs: Vital Signs - 8 hr 04/16/22 10:25 04/16/22 10:23 04/16/22 10:26 Temperature 98.0 F Pulse Rate 82 70 Respiratory Rate 18 Blood Pressure 225/89 H 225/89 H Pulse Oximetry 98 99 Oxygen Delivery Method Room Air 04/16/22 10:26 04/16/22 10:30 04/16/22 10:30 Temperature Pulse Rate 65 68 Respiratory Rate 22 20 Blood Pressure 210/90 H Pulse Oximetry 99 98 Oxygen Delivery Method 04/16/22 10:48 04/16/22 10:48 04/16/22 11:00 Temperature Pulse Rate 65 Respiratory Rate 26 H Blood Pressure 127/75 178/84 H Pulse Oximetry 100 Oxygen Delivery Method 04/16/22 11:00 04/16/22 11:15 04/16/22 11:15 Temperature Pulse Rate 77 64 Respiratory Rate 20 20 Blood Pressure 158/71 H Pulse Oximetry 98 97 Oxygen Delivery Method 04/16/22 12:17 04/16/22 12:27 Temperature Pulse Rate 66 68 Respiratory Rate Blood Pressure 195/79 H 144/62 H Pulse Oximetry Oxygen Delivery Method MDM - Chest Pain Lab Data Result diagrams: 04/16/22 10:48 04/16/22 10:48 Labs: Lab Results 04/16/22 04/16/22 04/16/22 Range/Units 10:48 10:48 10:48 WBC 9.0 (4.5-11.0) X10^3/uL RBC 4.30 (4.0-5.2) X10^6/uL Hgb 12.2 (12.0-16.0) g/dL Hct 36.3 (36-46) % MCV 84.4 (80-100) fL MCH 28.3 (26-34) PG MCHC 33.5 (30-36) % RDW 15.0 H (11.6-14.8) % Plt Count 268 (150-400) X10^3/uL Neut % (Auto) 68.1 (50-75) % Lymph % (Auto) 18.0 L (25-40) % Gilchrist % (Auto) 5.6 (3-14) % Eos % (Auto) 7.3 H (2-4) % Baso % (Auto) 1.0 (0-2) % Neut # (Auto) 6200 (2038-4208) /uL Lymph # (Auto) 1600 (2905-9424) /uL Gilchrist # (Auto) 500 (0-900) /uL Eos # (Auto) 700 H (0-450) /uL Baso # (Auto) 100 (0-100) /uL Sodium 137 (137-145) mmol/L Potassium 4.3 (3.4-5.1) mmol/L Chloride 102 (98-107) mmol/L Carbon Dioxide 27 (22-32) mmol/L BUN 24 H (7-17) mg/dL Creatinine 1.10 H (0.52-1.04) mg/dL Estimated GFR 54 L (>60) mL/min BUN/Creatinine Ratio 21.8 (6-22) Glucose 279 H (80-110) mg/dL Calcium 8.9 (8.4-10.2) mg/dL Magnesium 1.6 (1.6-2.3) mg/dL Total Bilirubin 0.2 (0.2-1.3) mg/dL AST 19 (14-36) IU/L ALT 22 (<35) IU/L Alkaline Phosphatase 108 (38-126) U/L Total Creatine Kinase 103 (30-135) U/L CK-MB (CK-2) 1.93 (<2.37) ng/mL CK-MB (CK-2) Rel Index 1.9 (1.5-5.0) % Troponin I 0.012 (0.01-0.034) ng/mL NT-Pro-B Natriuret Pep 329 H (<125) pg/mL Total Protein 7.3 (6.3-8.2) g/dL Albumin 4.0 (3.5-5.0) g/dL Globulin 3.3 (1.7-4.1) g/dL Albumin/Globulin Ratio 1.2 (1.0-2.8) Lipase 81 (23-300) U/L SARS-CoV-2 (PCR) (Negative) 04/16/22 04/16/22 Range/Units 10:58 12:51 WBC (4.5-11.0) X10^3/uL RBC (4.0-5.2) X10^6/uL Hgb (12.0-16.0) g/dL Hct (36-46) % MCV (80-100) fL MCH (26-34) PG MCHC (30-36) % RDW (11.6-14.8) % Plt Count (150-400) X10^3/uL Neut % (Auto) (50-75) % Lymph % (Auto) (25-40) % Gilchrist % (Auto) (3-14) % Eos % (Auto) (2-4) % Baso % (Auto) (0-2) % Neut # (Auto) (7946-3597) /uL Lymph # (Auto) (5982-5976) /uL Gilchrist # (Auto) (0-900) /uL Eos # (Auto) (0-450) /uL Baso # (Auto) (0-100) /uL Sodium (137-145) mmol/L Potassium (3.4-5.1) mmol/L Chloride (98-107) mmol/L Carbon Dioxide (22-32) mmol/L BUN (7-17) mg/dL Creatinine (0.52-1.04) mg/dL Estimated GFR (>60) mL/min BUN/Creatinine Ratio (6-22) Glucose (80-110) mg/dL Calcium (8.4-10.2) mg/dL Magnesium (1.6-2.3) mg/dL Total Bilirubin (0.2-1.3) mg/dL AST (14-36) IU/L ALT (<35) IU/L Alkaline Phosphatase (38-126) U/L Total Creatine Kinase (30-135) U/L CK-MB (CK-2) (<2.37) ng/mL CK-MB (CK-2) Rel Index (1.5-5.0) % Troponin I 0.012 (0.01-0.034) ng/mL NT-Pro-B Natriuret Pep (<125) pg/mL Total Protein (6.3-8.2) g/dL Albumin (3.5-5.0) g/dL Globulin (1.7-4.1) g/dL Albumin/Globulin Ratio (1.0-2.8) Lipase (23-300) U/L SARS-CoV-2 (PCR) Negative (Negative) Urine Dip Bedside Urine Glucose 1000 mg/dl Bedside Urine Bilirubin - Negative Bedside Urine Ketone - Negative Urine Specific [place] 1.015 Bedside Urine Occult Blood - Negative Bedside Urine pH 5.5 Bedside Urine Protein - Negative Bedside Urine Urobilinogen - Negative Bedside Urine Nitrite - Negative Bedside Urine Leukocytes - Negative Esterase Imaging Data Chest x-ray: Radiologist's Impression: Allergy/Adv: adhesive tape, iodine, corn, codeine, hydrocodone, oxycodone (More??) Close Chest X-Ray (Signed) Héctor Rose - 04/16/22 Foot X-Ray (Signed) Raul Grover - 01/29/22 Mammogram, Additional Views (Signed) Carlos Yañez - 11/23/20 Mammogram Screening (Signed) Scot Cabrera - 11/08/20 Bone Densitometry 11/08/20 Chest X-Ray (Signed) Jevon Spencer - 01/19/19 Vascular Ultrasound (Signed) Fredis Lou - 11/26/18 Echocardiogram Ultrasound (Signed) Francisco Dacosta - 06/30/18 Outside DI 08/18/14 Launch?Image [address] [address] XRay Report Signed Patient: Sherry Mcknight MR#: [id number] : 1950 Acct:[id number] Age/Sex: 71 / F Date of Service: 04/16/22 Loc: ED Accession Number: [id number] ?? Procedure: XR chest 1V Ordering Provider: Tamica Reinoso D.O. PROCEDURE:? XR CHEST 1V ? INDICATIONS:? chest pain ? TECHNIQUE:? One view of the chest was acquired.? ? COMPARISON:? [facility], CR, XR CHEST 2V, 01/19/2019, 10:58.? [facility], CR, CHEST 1 VIEW, 08/06/2015, 8:46. ? FINDINGS:? ? Surgical changes and devices:? None.? ? Lungs and pleura:? Lungs are clear.? No pleural effusions or pneumothorax.? ? Mediastinum:? Mediastinal contours appear normal.? Heart size is at the upper limit of normal. ? Bones and chest wall:? No suspicious bony lesions.? Overlying soft tissues appear unremarkable.? ? IMPRESSION:? No acute radiographic abnormality.? Heart size is at the upper limit of normal.? ? ? Dictated by: Héctor Rose M.D. on 04/16/2022 at 10:56 ? ? Approved by: Héctor Rose M.D. on 04/16/2022 at 10:57?? ECG Data Attestation: I personally reviewed and interpreted this ECG as follows: Interpretation: Sinus rhythm rate of 70, KS 128 QRS 84 QTC of 473. Nonspecific change. No acute elevation noted. Patient has prior from 03/25/2020 which appears similar. EKG 2. Sinus rhythm rate of 71 KS 1-2 QRS of 84 QTC of 504. No acute ST e levation or depression. MDM Narrative Medical decision making narrative: This is a 71-year-old female comes in with complaint of shortness of breath, irregular heartbeat and left chest discomfort who had some response to nitro but not complete resolution. Patient does take nitro intermittently. She follows regularly with cardiology. Patient does have risk factors. She is quite hypertensive upon arrival which improved. Workup shows slight improvement of her renal dysfunction, troponin negative x2 with a very mildly elevated BNP. COVID is negative. Chest x-ray does not show acute changes and patient EKG x2 does not show dynamic changes. Patient did have resolution of her chest pain with nitro discussed with her personal matrix supervisor who suspect this is more related to vasospasm but patient and cardiology team should discuss if they wish to pursue repeat cardiac catheterization. At this time he recommends i ncreasing her Imdur, discussed with patient she is comfortable returning home understanding risks versus benefits and patient is to follow-up in the short term with her cardiology team. Discharge Plan Departure Patient Disposition: Home Clinical Impression: Chest pain Instructions: DI for Chest Pain Activity Restrictions/Additional Instructions: Please follow-up with your matrix supervisor Dr. Weber. He recommends that we increase your Imdur from 60 mg daily to 120 mg daily. You may continue your other home medications as prescribed. Please return for new or worsening chest pain, increasing frequency, does not respond to nitro or sublingual nitro, passing out, new swelling in your extremi ties or other new or concerning symptoms. Prescriptions: No Action torsemide 20 mg tablet 40 mg PO DAILY allopurinol 300 mg tablet 300 mg PO DAILY colchicine [Colcrys] 0.6 mg tablet 0.6 mg PO DAILY PRN (Reason: Gout) gabapentin 300 mg capsule 600 mg PO QPM Label Comments: patient states ran out escitalopram oxalate 20 mg tablet 20 mg PO DAILY metformin 500 mg Tablet 1,000 mg PO BID atorvastatin 20 mg Tablet 20 mg PO QPM glipizide 10 mg Tablet 20 mg PO QAM diltiazem HCl 300 mg Capsule,Extended Release 24 Hr 300 mg PO DAILY omeprazole 40 mg Capsule,Delayed Release(Dr/Ec) 40 mg PO DAILY nitroglycerin 0.4 mg Tablet, Sublingual 0.4 mg SUBLINGUAL DAILY PRN (Reason: Chest Pain) potassium chloride [Klor-Con 10] 10 mEq Tablet Extended Release 10 meq PO QPM isosorbide mononitrate 60 mg Tablet Extended Release 24 Hr 60 mg PO DAILY flecainide 150 mg Tablet 150 mg PO BID amitriptyline 10 mg tablet 10 mg PO QPM indomethacin 25 mg capsule 25 mg PO DAILY clotrimazole 1 % Cream 1 applic TOPICAL BID PRN (Reason: Rash) insulin glargine [Lantus Solostar U-100 Insulin] 100 unit/mL (3 mL) Insulin Pen 56 unit SUBCUT DAILY magnesium oxide 500 mg Capsule 500 mg PO BID pramipexole [Mirapex] 0.125 mg Tablet 0.125 mg PO fluticasone propionate [Allergy Relief (fluticasone)] 50 mcg/actuation Clark,Suspension 1 spray INTRANASAL DAILY PRN (Reason: Allergy Symptoms) Rx Instructions: administer into each nostril sertraline [Zoloft] 50 mg Tablet 50 mg PO DAILY vitamin K2 100 mcg Capsule 100 mcg PO DAILY losartan 100 mg tablet Referrals: Riley Clayton MD [Primary Care Provider] - Visit Report Forms: Patient Portal/API
[2022-04-16 12:13] LABS: COVID19 -Nasal RAPID Negative (Negative)
[2022-04-16] MEDS: NITROGLYCERIN 0.4 MG SL TAB SL ×2 (12:17→12:27)
[2022-04-16 12:24] LABS: NT-proBNP (BNP-Adult 18+) 329 pg/mL (<125)
--- NOTE | 2022-04-16 12:36 | PC.NURSE ---
MD notified that second dose of nitro resolved chest pain.
[2022-04-16 13:25] LABS: Troponin I 0.012 ng/mL (0.01-0.034)
== END 2022-04-16 15:18 | disposition home or self-care (01) ==
PROVIDERS: Emergency Provider Emergency Medicine; Family Provider Orthopaedic Surgery; PCP Internal Medicine
DX: R07.9 Chest pain, unspecified (principal); R00.2 Palpitations; I25.2 Old myocardial infarction; Z20.822 Contact with and (suspected) exposure to COVID-19
CPT/HCPCS: 36415; 71045; 80053; 81003; 82550; 82553; 83690; 83735; 83880; 84484; 85025; 87635; 93005; 93010; 99284; C9803

== ENCOUNTER 2023-01-11 10:29 | Emergency (ER) | payer MEDICARE, OTHER, SELFPAY ==
[2023-01-11] VITALS (26 sets, daily range): BP systolic 175–230; BP diastolic 80–123; PULSE 54–115; RESP 12–65; TEMP 35.8; O2SAT 95–100; BMI 41.9
--- NOTE | 2023-01-11 10:57 | DI.RAD.S_ITS ---
PROCEDURE: XR CHEST 1V INDICATIONS: Shortness of breath TECHNIQUE: One view of the chest was acquired. COMPARISON: [facility]ed [facility], CR, XR CHEST 2V, 01/19/2019, 10:58. FINDINGS: Surgical changes and devices: None. Lungs and pleura: Lungs are clear. No pleural effusions or pneumothorax. Mediastinum: Mediastinal contours appear normal. Heart size is normal. Bones and chest wall: No suspicious bony lesions. Overlying soft tissues appear unremarkable. IMPRESSION: No acute cardiopulmonary findings. Dictated by: Paul Yañez M.D. on 01/11/2023 at 10:25 Approved by: Paul Yañez M.D. on 01/11/2023 at 10:26
--- NOTE | 2023-01-11 11:22 | PC.NURSE ---
pt states she lives with her son and granddaughter and the granddaughter was sick the thursday prior to pt having symptoms. same symptoms. pt has tried every cold med there is and has had no relief. pt states she did not take her morning meds this morning, including her BP meds
[2023-01-11 11:26] LABS: Prothrombin Time 11.2 SECONDS (10.1-12.7)
[2023-01-11 11:28] LABS: Add Manual Diff / Slide Review NO; Basophils Absolute Auto 200 /uL (0-100); Basophils Percent Auto 2.3 % (0-2); Eosinophils Absolute Auto 300 /uL (0-450); Eosinophils Percent Auto 5.1 % (2-4); Hematocrit 38.2 % (36-46); Hemoglobin 12.7 g/dL (12.0-16.0); Lymphocytes Absolute Auto 2200 /uL (1100-4500); Lymphocytes Percent Auto 32.5 % (25-40); Mean Corpuscular HGB Conc 33.3 % (30-36); Mean Corpuscular Hemoglobin 28.4 PG (26-34); Mean Corpuscular Volume 85.1 fL (80-100); Monocytes Absolute Auto 500 /uL (0-900); Neutrophils Absolute Auto 3600 /uL (1500-7000); Neutrophils Percent Auto 52.1 % (50-75); Platelet Count 272 X10^3/uL (150-400); Red Blood Cell Count 4.49 X10^6/uL (4.0-5.2); Red Cell Distribution Width 14.5 % (11.6-14.8); White Blood Cell Count 6.8 X10^3/uL (4.5-11.0)
[2023-01-11 11:30] LABS: Lactate (Lactic Acid) 0.9 mmol/L (0.7-2.1)
[2023-01-11 11:32] LABS: Alanine Aminotransferase 25 IU/L (<35); Albumin 3.9 g/dL (3.5-5.0); Albumin Globulin Ratio 1.1 (1.0-2.8); Alkaline Phosphatase 103 U/L (38-126); Aspartate Aminotransferase 21 IU/L (14-36); Bilirubin Total 0.4 mg/dL (0.2-1.3); Blood Urea Nitrogen 25 mg/dL (7-17); Calcium 8.4 mg/dL (8.4-10.2); Carbon Dioxide 29 mmol/L (22-32); Chloride 102 mmol/L (98-107); Estimated Glomerular Filt Rate 57 mL/min (>60); Globulin 3.5 g/dL (1.7-4.1); Glucose 169 mg/dL (80-110); HEMOLYSIS < 15 (0-50); Potassium 4.4 mmol/L (3.4-5.1); Sodium 137 mmol/L (137-145); Total Protein 7.4 g/dL (6.3-8.2)
[2023-01-11] MEDS: TORSEMIDE 10 MG TABLET PO (11:39)
[2023-01-11] MEDS: METOPROLOL ER 50 MG TABLET PO (11:39)
[2023-01-11] MEDS: dilTIAZem CD 180 MG CAP 360 MG PO (11:39)
[2023-01-11 11:44] LABS: NT-proBNP (BNP-Adult 18+) 287 pg/mL (<125); Troponin I 0.016 ng/mL (0.01-0.034)
[2023-01-11 11:59] LABS: Influenza A - CEPHEID Flu A NEGATIVE (NEGATIVE); Influenza B - CEPHEID Flu B NEGATIVE (NEGATIVE); Respiratory Syncytial Virus Negative (Negative)
[2023-01-11 12:00] LABS: COVID-19 CEPHEID 4-PLEX PCR Negative (Negative)
--- NOTE | 2023-01-11 12:26 | PC.NURSE ---
notified provider of pts continuing of HTN 45min after medication. BP in 15more minutes then re notify provider
--- NOTE | 2023-01-11 13:17 | ED.SOB ---
HPI - SOB/Dyspnea <Yulia Vargas PA-C - Last Filed: 01/11/23 14:41> General Chief Complaint: Upper Respiratory Symptoms Stated Complaint: cough t-7 Time Seen by Provider: 01/11/23 12:03 History of Present Illness HPI Narrative: Patient is a 72-year-old female with chronic conditions of CHF, type 2 diabetes and PVCs and PACs and hypertension presenting for evaluation of concern for cough x3 days. She was found to have severely elevated blood pressure upon arrival into the ED in the . She reports that her granddaughter came home 2 days ago with a cough. She states that since then she developed a cough and reports that she feels some wheezing and extra crackles. She states that the same time she developed pain in her right lower back around the same time as the cough. She states that the pain in her lower back starts with coughing and worsens with movement, but is not present at rest. She does report shortness of breath, but notes that she is always feeling a little short of breath due to her CHF and denies any increase in this sensation. Her O2 sat is 98% during conversation. She denies any chest pain or change in vision nor change to her urination nor headache. She takes torsemide, metoprolol and diltiazem for her blood pressure and denies taking any this morning. She received these doses in the emergency department and reports peeing normally and frequently due to the torsemide. She states that her last A1c in treatment of her diabetes was 8.6 and she is generally treat his NovoLog insulin started. She states for her PVCs and PACs she normally takes flecainide which she is not had yet today. She does deny condition of atrial fibrillation. She denies pitting edema in her lower legs, but does note that this does occur to her occasionally. Review of chart shows that her GFR rate is in the upper 50s which is comparable to her last GFR on her visit with us in April. Her BNP was similarly elevated at 297, but similar again to last April when it was in the 300s. Related Data Home Medications Medication Instructions Recorded Confirmed atorvastatin 20 mg tablet 20 mg PO QPM 07/23/18 08/09/22 diltiazem HCl 300 mg capsule,24 300 mg PO DAILY 07/23/18 08/09/22 hr,extended release glipizide 10 mg tablet 20 mg PO QAM 07/23/18 08/09/22 isosorbide mononitrate 60 mg 60 mg PO DAILY 07/23/18 08/09/22 tablet,extended release 24 hr metformin 500 mg tablet 1,000 mg PO BID 07/23/18 08/09/22 nitroglycerin 0.4 mg sublingual 0.4 mg sublingual DAILY PRN Chest 07/23/18 08/09/22 tablet Pain omeprazole 40 mg capsule,delayed 40 mg PO DAILY 07/23/18 08/09/22 release potassium chloride 10 mEq 10 meq PO QPM 07/23/18 08/09/22 tablet,extended release (Klor-Con) allopurinol 300 mg tablet 300 mg PO DAILY 11/26/18 08/09/22 colchicine 0.6 mg tablet 0.6 mg PO DAILY PRN Gout 11/26/18 08/09/22 escitalopram oxalate 20 mg tablet 20 mg PO DAILY 11/26/18 08/09/22 gabapentin 300 mg capsule 600 mg PO QPM 11/26/18 08/09/22 torsemide 20 mg tablet 40 mg PO DAILY 11/26/18 08/09/22 amitriptyline 10 mg tablet 10 mg PO QPM 04/16/22 08/09/22 clotrimazole 1 % topical cream 1 applic topical BID PRN Rash 04/16/22 08/09/22 flecainide 150 mg tablet 150 mg PO QAM 04/16/22 08/09/22 fluticasone propionate 50 1 spray intranasal DAILY PRN 04/16/22 08/09/22 mcg/actuation nasal Allergy Symptoms spray,suspension (Allergy Relief (fluticasone)) indomethacin 25 mg capsule 25 mg PO DAILY 04/16/22 08/09/22 insulin glargine 100 unit/mL (3 56 unit SUBCUT DAILY 04/16/22 08/09/22 mL) subcutaneous pen (Lantus Solostar U-100 Insulin) losartan 100 mg tablet mg 04/16/22 08/09/22 magnesium oxide 500 mg capsule 500 mg PO BID 04/16/22 08/09/22 pramipexole 0.125 mg tablet 0.125 mg PO 04/16/22 08/09/22 (Mirapex) sertraline 50 mg tablet (Zoloft) 50 mg PO DAILY 04/16/22 08/09/22 vitamin K2 100 mcg capsule 100 mcg PO DAILY 04/16/22 08/09/22 Previous Rx's Medication Instructions Recorded albuterol sulfate 90 mcg/actuation 1 inh inhalation Q4-6H PRN 01/11/23 breath activated powder inhaler shortness of breath or wheezing #1 (ProAir RespiClick) ea Allergies Allergy/AdvReac Type Severity Reaction Status Date / Time adhesive tape [ADHESIVE TAPE] Allergy Intermediate WELTS/Itching Verified 01/11/23 11:17 PAPER/SILK TAPE OK iodine [IODINE] Allergy Mild ITCHY AND Verified 01/11/23 11:17 RASH UNLESS WASHED OF corn Allergy Swelling Verified 01/11/23 11:17 of Lip/Tongue/Throat codeine [CODEINE] AdvReac Intermediate ITCHY Verified 01/11/23 11:17 hydrocodone [HYDROCODONE] AdvReac Intermediate ITCHY Verified 01/11/23 11:17 oxycodone [OXYCODONE] AdvReac Intermediate ITCHY Verified 01/11/23 11:17 Review of Systems <Yulia Vargas PA-C - Last Filed: 01/11/23 14:41> Review of Systems Narrative: Per HPI Patient History <Yulia Vargas PA-C - Last Filed: 01/11/23 14:41> Medical History Actinic keratosis Anemia Arthritis of left acromioclavicular joint Basal cell carcinoma Cardiac murmur GERD (gastroesophageal reflux disease) History of squamous cell carcinoma Hyperlipidemia Hypertension Obesity (BMI 30-39.9) Osteoporosis Pain of left great toe PVC (premature ventricular contraction) Seborrheic keratosis Skin lesion of back Sleep apnea Spina bifida occulta ST segment abnormality (~08/2014) Tear of left rotator cuff Type II diabetes mellitus Valvular sclerosis Surgical History History of appendectomy History of arthroscopy of both knees History of cholecystectomy History of colonoscopy History of esophagogastroduodenoscopy (EGD) History of hysterectomy History of repair of rotator cuff History of total left hip arthroplasty History of total right hip arthroplasty Social History household members: spouse Smoking Status: Former smoker Smoking Status: Former smoker alcohol intake frequency: holidays/special occasions only Substance Use Type: does not use and other Exam <Yulia Vargas PA-C - Last Filed: 01/11/23 14:41> Initial Vital Signs Initial Vital Signs: Vital Signs Temperature 96.5 F L 01/11/23 10:51 Pulse Rate 86 01/11/23 10:51 Respiratory Rate 16 01/11/23 10:51 Blood Pressure 209/106 H 01/11/23 10:51 Pulse Oximetry 99 01/11/23 10:51 Oxygen Delivery Method Room Air 01/11/23 10:51 GENERAL: 72 year old patient appears stated age. Well-developed patient, in no acute distress. HEAD: Atraumatic. Normocephalic. EYES: Pupils equal round and reactive. No scleral icterus. No injection or drainage. ENT: Throat without erythema, tonsillar hypertrophy or exudate. Airway patent. NECK: Trachea midline. CARDIOVASCULAR: Irregular rate and rhythm without murmurs, gallops, or rubs. RESPIRATORY: Wheezes present auscultation bilaterally, no rhonchi, no increased work of respiration EXTREMITIES: No pitting edema edema or joint tenderness. Posterior tibialis 2+ bilaterally BACK: Kyphosis present, mild tenderness to palpation in right lower back, minimally precipitated by leaning forward NEURO: AOx3. SKIN: No rash or erythema of visible areas <Tamica Reinoso DO - Last Filed: 01/11/23 19:44> Initial Vital Signs Initial Vital Signs: Vital Signs Temperature 96.5 F L 01/11/23 10:51 Pulse Rate 86 01/11/23 10:51 Respiratory Rate 16 01/11/23 10:51 Blood Pressure 209/106 H 01/11/23 10:51 Pulse Oximetry 99 01/11/23 10:51 Oxygen Delivery Method Room Air 01/11/23 10:51 Course <Yulia Vargas PA-C - Last Filed: 01/11/23 14:41> Orders Ordered: ED Orders 01/11/23 10:57 XR chest 1V Stat EKG-12 Lead Stat Measure peak expiratory flow ONCE RT Consult Eval and Treat NOW 01/11/23 11:00 Complete Blood Count AUTO DIFF Stat Comprehensive Metabolic Panel Stat Covid-19 + FLU A/B + RSV - PCR Stat Lactate (Lactic Acid) Stat NT-proBNP (BNP-Adult 18+) Stat Prothrombin Time INR Stat Troponin I Stat Discontinued Medications Albuterol/Ipratropium (Albuterol/Ipratropium 3 Ml Ampul) 3 ml INH NOW ONE Stop: 01/11/23 13:26 Last Admin: 01/11/23 13:50 Dose: 3 ml Documented By: SENTHIL Diltiazem HCl (Diltiazem Cd 180 Mg Cap) 360 mg PO NOW ONE Stop: 01/11/23 11:29 Last Admin: 01/11/23 11:39 Dose: 360 mg Documented By: NR Flecainide Acetate (Flecainide 100 Mg Tablet) 150 mg PO NOW ONE Stop: 01/11/23 13:26 Last Admin: 01/11/23 13:44 Dose: 150 mg Documented By: BLANCO Metoprolol Succinate (Metoprolol Er 50 Mg Tablet) 50 mg PO NOW ONE Stop: 01/11/23 11:28 Last Admin: 01/11/23 11:39 Dose: 50 mg Documented By: NR Torsemide (Torsemide 10 Mg Tablet) 10 mg PO NOW ONE Stop: 01/11/23 11:28 Last Admin: 01/11/23 11:39 Dose: 10 mg Documented By: NR Vital Signs Vital signs: Vital Signs - 8 hr 01/11/23 11:45 01/11/23 12:00 01/11/23 12:07 Pulse Rate 110 H 90 Respiratory Rate 24 24 Blood Pressure 230/102 H Pulse Oximetry 98 99 Oxygen Delivery Method Oxygen Flow Rate Fraction of Inspired Oxygen 01/11/23 12:07 01/11/23 12:15 01/11/23 12:16 Pulse Rate 110 H 82 Respiratory Rate 20 23 Blood Pressure 220/97 H Pulse Oximetry 99 98 Oxygen Delivery Method Oxygen Flow Rate Fraction of Inspired Oxygen 01/11/23 12:16 01/11/23 13:04 01/11/23 12:30 Pulse Rate 80 54 L 99 H Respiratory Rate 23 12 Blood Pressure 196/97 H Pulse Oximetry 98 99 Oxygen Delivery Method Oxygen Flow Rate Fraction of Inspired Oxygen 01/11/23 12:31 01/11/23 12:31 01/11/23 12:45 Pulse Rate 103 H 103 H Respiratory Rate 21 24 Blood Pressure 218/93 H Pulse Oximetry 99 99 Oxygen Delivery Method Oxygen Flow Rate Fraction of Inspired Oxygen 01/11/23 13:00 01/11/23 13:00 01/11/23 13:51 Pulse Rate 60 63 Respiratory Rate 24 18 Blood Pressure 196/97 H Pulse Oximetry 99 100 Oxygen Delivery Method Room Air Oxygen Flow Rate 0 Fraction of Inspired Oxygen 21 01/11/23 13:15 01/11/23 13:30 01/11/23 13:31 Pulse Rate 104 H 55 L Respiratory Rate 34 H 19 Blood Pressure 181/80 H Pulse Oximetry 98 98 Oxygen Delivery Method Oxygen Flow Rate Fraction of Inspired Oxygen 01/11/23 13:31 01/11/23 13:45 01/11/23 14:05 Pulse Rate 56 L 91 H Respiratory Rate 22 65 H Blood Pressure Pulse Oximetry 98 98 95 Oxygen Delivery Method Oxygen Flow Rate Fraction of Inspired Oxygen 01/11/23 14:06 01/11/23 14:06 01/11/23 14:15 Pulse Rate 66 100 H Respiratory Rate 28 H 28 H Blood Pressure 175/95 H Pulse Oximetry 100 100 Oxygen Delivery Method Oxygen Flow Rate Fraction of Inspired Oxygen 01/11/23 14:30 01/11/23 14:30 01/11/23 14:45 Pulse Rate 95 H 74 Respiratory Rate 30 H Blood Pressure 198/83 H Pulse Oximetry 97 99 Oxygen Delivery Method Oxygen Flow Rate Fraction of Inspired Oxygen <Tamica Reinoso, - Last Filed: 01/11/23 19:44> Orders Ordered: ED Orders 01/11/23 10:57 XR chest 1V Stat EKG-12 Lead Stat Measure peak expiratory flow ONCE RT Consult Eval and Treat NOW 01/11/23 11:00 Complete Blood Count AUTO DIFF Stat Comprehensive Metabolic Panel Stat Covid-19 + FLU A/B + RSV - PCR Stat Lactate (Lactic Acid) Stat NT-proBNP (BNP-Adult 18+) Stat Prothrombin Time INR Stat Troponin I Stat Discontinued Medications Albuterol/Ipratropium (Albuterol/Ipratropium 3 Ml Ampul) 3 ml INH NOW ONE Stop: 01/11/23 13:26 Last Admin: 01/11/23 13:50 Dose: 3 ml Documented By: SENTHIL Diltiazem HCl (Diltiazem Cd 180 Mg Cap) 360 mg PO NOW ONE Stop: 01/11/23 11:29 Last Admin: 01/11/23 11:39 Dose: 360 mg Documented By: NR Flecainide Acetate (Flecainide 100 Mg Tablet) 150 mg PO NOW ONE Stop: 01/11/23 13:26 Last Admin: 01/11/23 13:44 Dose: 150 mg Documented By: BLANCO Metoprolol Succinate (Metoprolol Er 50 Mg Tablet) 50 mg PO NOW ONE Stop: 01/11/23 11:28 Last Admin: 01/11/23 11:39 Dose: 50 mg Documented By: NKECHI Torsemide (Torsemide 10 Mg Tablet) 10 mg PO NOW ONE Stop: 01/11/23 11:28 Last Admin: 01/11/23 11:39 Dose: 10 mg Documented By: NKECHI Vital Signs Vital signs: Vital Signs - 8 hr 01/11/23 11:45 01/11/23 12:00 01/11/23 12:07 Pulse Rate 110 H 90 Respiratory Rate 24 24 Blood Pressure 230/102 H Pulse Oximetry 98 99 Oxygen Delivery Method Oxygen Flow Rate Fraction of Inspired Oxygen 01/11/23 12:07 01/11/23 12:15 01/11/23 12:16 Pulse Rate 110 H 82 Respiratory Rate 20 23 Blood Pressure 220/97 H Pulse Oximetry 99 98 Oxygen Delivery Method Oxygen Flow Rate Fraction of Inspired Oxygen 01/11/23 12:16 01/11/23 13:04 01/11/23 12:30 Pulse Rate 80 54 L 99 H Respiratory Rate 23 12 Blood Pressure 196/97 H Pulse Oximetry 98 99 Oxygen Delivery Method Oxygen Flow Rate Fraction of Inspired Oxygen 01/11/23 12:31 01/11/23 12:31 01/11/23 12:45 Pulse Rate 103 H 103 H Respiratory Rate 21 24 Blood Pressure 218/93 H Pulse Oximetry 99 99 Oxygen Delivery Method Oxygen Flow Rate Fraction of Inspired Oxygen 01/11/23 13:00 01/11/23 13:00 01/11/23 13:51 Pulse Rate 60 63 Respiratory Rate 24 18 Blood Pressure 196/97 H Pulse Oximetry 99 100 Oxygen Delivery Method Room Air Oxygen Flow Rate 0 Fraction of Inspired Oxygen 21 01/11/23 13:15 01/11/23 13:30 01/11/23 13:31 Pulse Rate 104 H 55 L Respiratory Rate 34 H 19 Blood Pressure 181/80 H Pulse Oximetry 98 98 Oxygen Delivery Method Oxygen Flow Rate Fraction of Inspired Oxygen 01/11/23 13:31 01/11/23 13:45 01/11/23 14:05 Pulse Rate 56 L 91 H Respiratory Rate 22 65 H Blood Pressure Pulse Oximetry 98 98 95 Oxygen Delivery Method Oxygen Flow Rate Fraction of Inspired Oxygen 01/11/23 14:06 01/11/23 14:06 01/11/23 14:15 Pulse Rate 66 100 H Respiratory Rate 28 H 28 H Blood Pressure 175/95 H Pulse Oximetry 100 100 Oxygen Delivery Method Oxygen Flow Rate Fraction of Inspired Oxygen 01/11/23 14:30 01/11/23 14:30 01/11/23 14:45 Pulse Rate 95 H 74 Respiratory Rate 30 H Blood Pressure 198/83 H Pulse Oximetry 97 99 Oxygen Delivery Method Oxygen Flow Rate Fraction of Inspired Oxygen MDM - SOB/Dyspnea <Yulia Vargas PA-C - Last Filed: 01/11/23 14:41> Lab Data 01/11/23 11:00 01/11/23 11:00 Labs: Lab Results 01/11/23 01/11/23 01/11/23 Range/Units 11:00 11:00 11:00 WBC 6.8 (4.5-11.0) X10^3/uL RBC 4.49 (4.0-5.2) X10^6/uL Hgb 12.7 (12.0-16.0) g/dL Hct 38.2 (36-46) % MCV 85.1 (80-100) fL MCH 28.4 (26-34) PG MCHC 33.3 (30-36) % RDW 14.5 (11.6-14.8) % Plt Count 272 (150-400) X10^3/uL Neut % (Auto) 52.1 (50-75) % Lymph % (Auto) 32.5 (25-40) % Otoe % (Auto) 8.0 (3-14) % Eos % (Auto) 5.1 H (2-4) % Baso % (Auto) 2.3 H (0-2) % Neut # (Auto) 3600 (2012-7766) /uL Lymph # (Auto) 2200 (9583-8647) /uL Otoe # (Auto) 500 (0-900) /uL Eos # (Auto) 300 (0-450) /uL Baso # (Auto) 200 H (0-100) /uL PT 11.2 (10.1-12.7) SECONDS INR 1.0 (0.9-1.3) Sodium (137-145) mmol/L Potassium (3.4-5.1) mmol/L Chloride (98-107) mmol/L Carbon Dioxide (22-32) mmol/L BUN (7-17) mg/dL Creatinine (0.52-1.04) mg/dL Estimated GFR (>60) mL/min BUN/Creatinine Ratio (6-22) Glucose (80-110) mg/dL Lactate (0.7-2.1) mmol/L Calcium (8.4-10.2) mg/dL Total Bilirubin (0.2-1.3) mg/dL AST (14-36) IU/L ALT (<35) IU/L Alkaline Phosphatase (38-126) U/L Troponin I (0.01-0.034) ng/mL NT-Pro-B Natriuret Pep (<125) pg/mL Total Protein (6.3-8.2) g/dL Albumin (3.5-5.0) g/dL Globulin (1.7-4.1) g/dL Albumin/Globulin Ratio (1.0-2.8) SARS-CoV-2 (PCR) Negative (Negative) Influenza A (RT-PCR) Flu a negative (NEGATIVE) Influenza B (RT-PCR) Flu b negative (NEGATIVE) RSV (PCR) Negative (Negative) 01/11/23 01/11/23 Range/Units 11:00 11:00 WBC (4.5-11.0) X10^3/uL RBC (4.0-5.2) X10^6/uL Hgb (12.0-16.0) g/dL Hct (36-46) % MCV (80-100) fL MCH (26-34) PG MCHC (30-36) % RDW (11.6-14.8) % Plt Count (150-400) X10^3/uL Neut % (Auto) (50-75) % Lymph % (Auto) (25-40) % Otoe % (Auto) (3-14) % Eos % (Auto) (2-4) % Baso % (Auto) (0-2) % Neut # (Auto) (8122-8385) /uL Lymph # (Auto) (7562-3451) /uL Otoe # (Auto) (0-900) /uL Eos # (Auto) (0-450) /uL Baso # (Auto) (0-100) /uL PT (10.1-12.7) SECONDS INR (0.9-1.3) Sodium 137 (137-145) mmol/L Potassium 4.4 (3.4-5.1) mmol/L Chloride 102 (98-107) mmol/L Carbon Dioxide 29 (22-32) mmol/L BUN 25 H (7-17) mg/dL Creatinine 1.04 (0.52-1.04) mg/dL Estimated GFR 57 L (>60) mL/min BUN/Creatinine Ratio 24.0 H (6-22) Glucose 169 H (80-110) mg/dL Lactate 0.9 (0.7-2.1) mmol/L Calcium 8.4 (8.4-10.2) mg/dL Total Bilirubin 0.4 (0.2-1.3) mg/dL AST 21 (14-36) IU/L ALT 25 (<35) IU/L Alkaline Phosphatase 103 (38-126) U/L Troponin I 0.016 (0.01-0.034) ng/mL NT-Pro-B Natriuret Pep 287 H (<125) pg/mL Total Protein 7.4 (6.3-8.2) g/dL Albumin 3.9 (3.5-5.0) g/dL Globulin 3.5 (1.7-4.1) g/dL Albumin/Globulin Ratio 1.1 (1.0-2.8) SARS-CoV-2 (PCR) (Negative) Influenza A (RT-PCR) (NEGATIVE) Influenza B (RT-PCR) (NEGATIVE) RSV (PCR) (Negative) Imaging Data Chest x-ray: Radiologist's Impression: PROCEDURE:? XR CHEST 1V ? INDICATIONS:? Shortness of breath ? TECHNIQUE:? One view of the chest was acquired.? ? COMPARISON:? [facility], CR, XR CHEST 2V, 01/19/2019, 10:58. ? FINDINGS:? ? Surgical changes and devices:? None.? ? Lungs and pleura:? Lungs are clear.? No pleural effusions or pneumothorax.? ? Mediastinum:? Mediastinal contours appear normal.? Heart size is normal.? ? Bones and chest wall:? No suspicious bony lesions.? Overlying soft tissues appear unremarkable.? ? IMPRESSION:? No acute cardiopulmonary findings. ? ? Dictated by: Paul Yañez M.D. on 01/11/2023 at 10:25 ? ? Approved by: Paul Yañez M.D. on 01/11/2023 at 10:26 ? MDM Narrative Medical decision making narrative: CC: This is a new problem, uncertain diagnosis possible systemic effects Complicating co-morbidities: CHF, type 2 diabetes, dysrhythmia, Corroborating data: Data collected from: patient, Medical records reviewed: BNP and CMP from April 2022 Differential considered: CHF exacerbation, aortic dissection, pneumonia, bronchitis Exam documented above, pertinent findings include: Wheezing auscultated to both lungs during exam, patient did not have increased work of breathing and O2 sats stayed at 98-100%. BP initially elevated in the 200s/90s. Improved after daily med administration to 175/95. Lab Test results independently reviewed as above. Pertinent findings: No elevated white count, elevated BNP similar to level noted in April, slightly decreased GFR similar to level noted in April 2022 Independently reviewed EKG as above: Reviewed with Dr. Reinoso. Sinus tachycardia with PAC Imaging studies independently reviewed: No abnormal findings on chest x-ray Consultations: Reviewed case with Dr. Reinoso Treatments: Received DuoNeb, metoprolol, torsemide, diltiazem and flecainide Re-evaluations: Reports some improvement after DuoNeb, BP improved after blood pressure medications and increased urine output after torsemide. Discussion: Discussed with patient that symptoms seem most consistent with bronchitis with elevated blood pressure. She is not having any red flag symptoms with her elevated blood pressure today. She denied chest pain, headache, visual changes. She denies any fever, body aches or chills and CBC showed no elevated white count. I recommend patient be discharged home to continue supportive care and follow up with primary care physician to ensure continued improvement of her symptoms. I have prescribed an albuterol inhaler to help with her wheezing and after discussing patient's preferences, I have decided not to prescribe a steroid due to possibility of secondarily increasing blood sugar. She is agreeable to plan of care. We discussed as noted in discharge instructions she is to return if she does develop any chest pain, shortness O breath, headache or visual changes. Please continue to watch blood pressure for improvement with rest at home. Continue follow up with primary care provider to ensure blood pressure is adequately controlled. Disposition: see below, along with detailed discharge instructions that have been reviewed with patient as well as indications for ED re-evaluation and additional outpatient follow up <Tamica Reinoso, DO - Last Filed: 01/11/23 19:44> Lab Data Labs: Lab Results 01/11/23 01/11/23 01/11/23 Range/Units 11:00 11:00 11:00 WBC 6.8 (4.5-11.0) X10^3/uL RBC 4.49 (4.0-5.2) X10^6/uL Hgb 12.7 (12.0-16.0) g/dL Hct 38.2 (36-46) % MCV 85.1 (80-100) fL MCH 28.4 (26-34) PG MCHC 33.3 (30-36) % RDW 14.5 (11.6-14.8) % Plt Count 272 (150-400) X10^3/uL Neut % (Auto) 52.1 (50-75) % Lymph % (Auto) 32.5 (25-40) % Otoe % (Auto) 8.0 (3-14) % Eos % (Auto) 5.1 H (2-4) % Baso % (Auto) 2.3 H (0-2) % Neut # (Auto) 3600 (6283-2580) /uL Lymph # (Auto) 2200 (7120-8052) /uL Otoe # (Auto) 500 (0-900) /uL Eos # (Auto) 300 (0-450) /uL Baso # (Auto) 200 H (0-100) /uL PT 11.2 (10.1-12.7) SECONDS INR 1.0 (0.9-1.3) Sodium (137-145) mmol/L Potassium (3.4-5.1) mmol/L Chloride (98-107) mmol/L Carbon Dioxide (22-32) mmol/L BUN (7-17) mg/dL Creatinine (0.52-1.04) mg/dL Estimated GFR (>60) mL/min BUN/Creatinine Ratio (6-22) Glucose (80-110) mg/dL Lactate (0.7-2.1) mmol/L Calcium (8.4-10.2) mg/dL Total Bilirubin (0.2-1.3) mg/dL AST (14-36) IU/L ALT (<35) IU/L Alkaline Phosphatase (38-126) U/L Troponin I (0.01-0.034) ng/mL NT-Pro-B Natriuret Pep (<125) pg/mL Total Protein (6.3-8.2) g/dL Albumin (3.5-5.0) g/dL Globulin (1.7-4.1) g/dL Albumin/Globulin Ratio (1.0-2.8) SARS-CoV-2 (PCR) Negative (Negative) Influenza A (RT-PCR) Flu a negative (NEGATIVE) Influenza B (RT-PCR) Flu b negative (NEGATIVE) RSV (PCR) Negative (Negative) 01/11/23 01/11/23 Range/Units 11:00 11:00 WBC (4.5-11.0) X10^3/uL RBC (4.0-5.2) X10^6/uL Hgb (12.0-16.0) g/dL Hct (36-46) % MCV (80-100) fL MCH (26-34) PG MCHC (30-36) % RDW (11.6-14.8) % Plt Count (150-400) X10^3/uL Neut % (Auto) (50-75) % Lymph % (Auto) (25-40) % Otoe % (Auto) (3-14) % Eos % (Auto) (2-4) % Baso % (Auto) (0-2) % Neut # (Auto) (0335-7726) /uL Lymph # (Auto) (3834-0719) /uL Otoe # (Auto) (0-900) /uL Eos # (Auto) (0-450) /uL Baso # (Auto) (0-100) /uL PT (10.1-12.7) SECONDS INR (0.9-1.3) Sodium 137 (137-145) mmol/L Potassium 4.4 (3.4-5.1) mmol/L Chloride 102 (98-107) mmol/L Carbon Dioxide 29 (22-32) mmol/L BUN 25 H (7-17) mg/dL Creatinine 1.04 (0.52-1.04) mg/dL Estimated GFR 57 L (>60) mL/min BUN/Creatinine Ratio 24.0 H (6-22) Glucose 169 H (80-110) mg/dL Lactate 0.9 (0.7-2.1) mmol/L Calcium 8.4 (8.4-10.2) mg/dL Total Bilirubin 0.4 (0.2-1.3) mg/dL AST 21 (14-36) IU/L ALT 25 (<35) IU/L Alkaline Phosphatase 103 (38-126) U/L Troponin I 0.016 (0.01-0.034) ng/mL NT-Pro-B Natriuret Pep 287 H (<125) pg/mL Total Protein 7.4 (6.3-8.2) g/dL Albumin 3.9 (3.5-5.0) g/dL Globulin 3.5 (1.7-4.1) g/dL Albumin/Globulin Ratio 1.1 (1.0-2.8) SARS-CoV-2 (PCR) (Negative) Influenza A (RT-PCR) (NEGATIVE) Influenza B (RT-PCR) (NEGATIVE) RSV (PCR) (Negative) ECG Data Attestation: I personally reviewed and interpreted this ECG as follows: Interpretation: Sinus tachycardia rate of 111 VA 136 QRS is 74 QTC [address] No acute ST changes noted. Discharge Plan Departure Patient Disposition: Home Clinical Impression: HTN (hypertension), Bronchitis Instructions: DI for Acute Bronchitis Activity Restrictions/Additional Instructions: You were seen in the emergency department today to evaluate wheezing and coughing. Thankfully, chest x-ray did not show a pneumonia. We did note elevated blood pressure, but you did not have red flag symptoms of headache, chest pain nor change in vision or other concerning symptoms with elevated blood pressure. Your blood pressure medicines were given to you in addition to your flecainide while you were here. He also received a DuoNeb due to the wheezing heard on exam. Your condition sounds most consistent with bronchitis the cause of which is most commonly viral. I recommend supportive care including increased fluids and monitoring of your breathing at home. I have included an albuterol inhaler to help should you experience some shortness of breath or the wheezing at home. I recommend that you continue follow up with your primary care provider continue to follow and make sure that you are continuing to heal without complication. Do please follow up in the emergency department if you should develop any other red flags we discussed such as headache, chest pain or change in vision in light of your elevated blood pressure today. Continue taking blood pressure medication as prescribed and continue follow up with primary care provider to ensure that your blood pressure is controlled within good limits. We discussed possibility of giving you a steroid today to help reduce the wheezing, but due to your type 2 diabetes, we have discussed together and decided to hold this medication in order not to raise your blood sugar. Thank you for coming to us for your care today. Prescriptions: New ProAir RespiClick 90 mcg/actuation aerosol powdr breath activated 1 inh inhalation Q4-6H PRN (Reason: shortness of breath or wheezing) Qty: 1 0RF No Action torsemide 20 mg tablet 40 mg PO DAILY allopurinol 300 mg tablet 300 mg PO DAILY colchicine [Colcrys] 0.6 mg tablet 0.6 mg PO DAILY PRN (Reason: Gout) gabapentin 300 mg capsule 600 mg PO QPM Patient Comments: patient states ran out escitalopram oxalate 20 mg tablet 20 mg PO DAILY metformin 500 mg Tablet 1,000 mg PO BID atorvastatin 20 mg Tablet 20 mg PO QPM glipizide 10 mg Tablet 20 mg PO QAM diltiazem HCl 300 mg Capsule,Extended Release 24 Hr 300 mg PO DAILY omeprazole 40 mg Capsule,Delayed Release(Dr/Ec) 40 mg PO DAILY nitroglycerin 0.4 mg Tablet, Sublingual 0.4 mg SUBLINGUAL DAILY PRN (Reason: Chest Pain) potassium chloride [Klor-Con 10] 10 mEq Tablet Extended Release 10 meq PO QPM isosorbide mononitrate 60 mg Tablet Extended Release 24 Hr 60 mg PO DAILY flecainide 150 mg Tablet 150 mg PO QAM amitriptyline 10 mg tablet 10 mg PO QPM indomethacin 25 mg capsule 25 mg PO DAILY clotrimazole 1 % Cream 1 applic TOPICAL BID PRN (Reason: Rash) insulin glargine [Lantus Solostar U-100 Insulin] 100 unit/mL (3 mL) Insulin Pen 56 unit SUBCUT DAILY magnesium oxide 500 mg Capsule 500 mg PO BID pramipexole [Mirapex] 0.125 mg Tablet 0.125 mg PO fluticasone propionate [Allergy Relief (fluticasone)] 50 mcg/actuation [place],Suspension 1 spray INTRANASAL DAILY PRN (Reason: Allergy Symptoms) Rx Instructions: administer into each nostril sertraline [Zoloft] 50 mg Tablet 50 mg PO DAILY vitamin K2 100 mcg Capsule 100 mcg PO DAILY losartan 100 mg tablet Referrals: Riley Clayton MD [Primary Care Provider] - Stand Alone Forms: Patient Portal/API <Tamica Reinoso DO - Last Filed: 01/11/23 19:44> Cosign ED Attending Malaikaature Attestation: I was immediately available in the department for consultation. Documentation has been reviewed.
[2023-01-11] MEDS: FLECAINIDE 100 MG TABLET 150 MG PO (13:44)
[2023-01-11] MEDS: ALBUTEROL/IPRATROPIUM 3 ML AMPUL INH (13:50)
== END 2023-01-11 15:01 | disposition home or self-care (01) ==
PROVIDERS: Emergency Medicine; Emergency Provider Physician Assistant; Family Provider Orthopaedic Surgery; PCP Internal Medicine
DX: I10 Essential (primary) hypertension (principal); J40 Bronchitis, not specified as acute or chronic; M54.50 Low back pain, unspecified; Z79.899 Other long term (current) drug therapy; Z20.822 Contact with and (suspected) exposure to COVID-19
CPT/HCPCS: 0241U; 36415; 71045; 80053; 83605; 83880; 84484; 85025; 85610; 93005; 94640; 99284

== ENCOUNTER 2023-04-09 19:38 | Emergency (ER) | payer MEDICARE, OTHER, SELFPAY ==
[2023-04-09 19:44] VITALS: BP 146/85; PULSE 86; RESP 18; TEMP 36.3; O2SAT 99; BMI 42.7
--- NOTE | 2023-04-09 23:39 | ED.BACK ---
HPI - Back Pain/Injury General Chief Complaint: Back Pain/Injury Stated Complaint: Right lower back/hip pain Time Seen by Provider: 04/09/23 23:39 Source: patient History of Present Illness HPI Narrative: Patient 72-year-old female prior NSTEMI, CHF, diabetes type 2 presents today with right-sided back pain. She reports that she does have chronic ongoing back pain but this is not letting up. She did not heating pad she is done hot baths. It is not getting any better. She is no numbness or tingling down her legs. He is not radiating around to her stomach. It is reproducible with palpation and movement. No fever chills. Related Data Home Medications Medication Instructions Recorded Confirmed atorvastatin 20 mg tablet 20 mg PO QPM 07/23/18 08/09/22 diltiazem HCl 300 mg capsule,24 300 mg PO DAILY 07/23/18 08/09/22 hr,extended release glipizide 10 mg tablet 20 mg PO QAM 07/23/18 08/09/22 isosorbide mononitrate 60 mg 60 mg PO DAILY 07/23/18 08/09/22 tablet,extended release 24 hr metformin 500 mg tablet 1,000 mg PO BID 07/23/18 08/09/22 nitroglycerin 0.4 mg sublingual 0.4 mg sublingual DAILY PRN Chest 07/23/18 08/09/22 tablet Pain omeprazole 40 mg capsule,delayed 40 mg PO DAILY 07/23/18 08/09/22 release potassium chloride 10 mEq 10 meq PO QPM 07/23/18 08/09/22 tablet,extended release (Klor-Con) allopurinol 300 mg tablet 300 mg PO DAILY 11/26/18 08/09/22 colchicine 0.6 mg tablet 0.6 mg PO DAILY PRN Gout 11/26/18 08/09/22 escitalopram oxalate 20 mg tablet 20 mg PO DAILY 11/26/18 08/09/22 gabapentin 300 mg capsule 600 mg PO QPM 11/26/18 08/09/22 torsemide 20 mg tablet 40 mg PO DAILY 11/26/18 08/09/22 amitriptyline 10 mg tablet 10 mg PO QPM 04/16/22 08/09/22 clotrimazole 1 % topical cream 1 applic topical BID PRN Rash 04/16/22 08/09/22 flecainide 150 mg tablet 150 mg PO QAM 04/16/22 08/09/22 fluticasone propionate 50 1 spray intranasal DAILY PRN 04/16/22 08/09/22 mcg/actuation nasal Allergy Symptoms spray,suspension (Allergy Relief (fluticasone)) indomethacin 25 mg capsule 25 mg PO DAILY 04/16/22 08/09/22 insulin glargine 100 unit/mL (3 56 unit SUBCUT DAILY 04/16/22 08/09/22 mL) subcutaneous pen (Lantus Solostar U-100 Insulin) losartan 100 mg tablet mg 04/16/22 08/09/22 magnesium oxide 500 mg capsule 500 mg PO BID 04/16/22 08/09/22 pramipexole 0.125 mg tablet 0.125 mg PO 04/16/22 08/09/22 (Mirapex) sertraline 50 mg tablet (Zoloft) 50 mg PO DAILY 04/16/22 08/09/22 vitamin K2 100 mcg capsule 100 mcg PO DAILY 04/16/22 08/09/22 Previous Rx's Medication Instructions Recorded albuterol sulfate 90 mcg/actuation 1 inh inhalation Q4-6H PRN 01/11/23 breath activated powder inhaler shortness of breath or wheezing #1 (ProAir RespiClick) ea cyclobenzaprine 5 mg tablet 5 mg PO TID PRN muscle spasm #10 04/10/23 tabs hydrocodone 5 mg-acetaminophen 325 1 tab PO Q6H PRN pain #10 tabs 04/10/23 mg tablet Allergies Allergy/AdvReac Type Severity Reaction Status Date / Time adhesive tape [ADHESIVE TAPE] Allergy Intermediate WELTS/Itching Verified 01/11/23 11:17 PAPER/SILK TAPE OK iodine [IODINE] Allergy Mild ITCHY AND Verified 01/11/23 11:17 RASH UNLESS WASHED OF corn Allergy Swelling Verified 01/11/23 11:17 of Lip/Tongue/Throat codeine [CODEINE] AdvReac Intermediate ITCHY Verified 01/11/23 11:17 hydrocodone [HYDROCODONE] AdvReac Intermediate ITCHY Verified 01/11/23 11:17 oxycodone [OXYCODONE] AdvReac Intermediate ITCHY Verified 01/11/23 11:17 Review of Systems Review of Systems ROS Unobtainable: All systems reviewed & are unremarkable except as noted in HPI and below Patient History Medical History Actinic keratosis Anemia Arthritis of left acromioclavicular joint Basal cell carcinoma Cardiac murmur GERD (gastroesophageal reflux disease) History of squamous cell carcinoma Hyperlipidemia Hypertension Obesity (BMI 30-39.9) Osteoporosis Pain of left great toe PVC (premature ventricular contraction) Seborrheic keratosis Skin lesion of back Sleep apnea Spina bifida occulta ST segment abnormality (~08/2014) Tear of left rotator cuff Type II diabetes mellitus Valvular sclerosis Surgical History History of appendectomy History of arthroscopy of both knees History of cholecystectomy History of colonoscopy History of esophagogastroduodenoscopy (EGD) History of hysterectomy History of repair of rotator cuff History of total left hip arthroplasty History of total right hip arthroplasty Social History household members: spouse Smoking Status: Former smoker Smoking Status: Former smoker alcohol intake frequency: holidays/special occasions only Substance Use Type: does not use and other Exam Initial Vital Signs Initial Vital Signs: Vital Signs Temperature 97.3 F L 04/09/23 19:44 Pulse Rate 86 04/09/23 19:44 Respiratory Rate 18 04/09/23 19:44 Blood Pressure 146/85 H 04/09/23 19:44 Pulse Oximetry 99 04/09/23 19:44 Oxygen Delivery Method Room Air 04/09/23 19:44 GENERAL: Alert pleasant 72-year-old female CARDIOVASCULAR: peripheral pulses in tact, cap refill <2 sec RESPIRATORY: No respiratory distress, speaks in full sentences without difficulty BACK: Right paraspinal muscle tenderness reproducible to touch spasm appreciated : No significant flank pain EXTREMITIES: Normal range of motion, no clubbing or edema. Neurovascularly intact NEUROLOGICAL: Cranial nerves II through XII grossly intact. Normal gait and speech. SKIN: Warm, dry, no petechiae, no rashes or lesions. Course Orders Ordered: Discontinued Medications Hydrocodone Bitart/Acetaminophen (Hydrocodone/Acet 5/325 Prepack) 1 bottle MISC SEEINSTR ONE Stop: 04/10/23 00:11 Last Admin: 04/10/23 00:21 Dose: 1 bottle Documented By: AP Vital Signs Vital signs: Vital Signs - 8 hr 04/09/23 23:53 04/10/23 00:06 Temperature 97.4 F L Pulse Rate 89 71 Respiratory Rate 18 Blood Pressure 152/89 H 158/70 H Pulse Oximetry 97 99 Oxygen Delivery Method Room Air Room Air MDM - Back Pain/Injury MDM Narrative Medical decision making narrative: Patient 72-year-old female multiple comorbidities including diabetes hypertension hyperlipidemia presenting today with ongoing back pain. It is reproducible to palpation. There is an obvious muscle spasm on exam. This is most consistent with a musculoskeletal problem rather than dissection or nephrolithiasis. She is previously taken cyclobenzaprine which has helped. We will give her prescription for Vincent and Flexeril. She has been doing heating pad and other things home. She is able to move in the ambulate. At this time I see no further workup. Discharge Plan Departure Patient Disposition: Home Clinical Impression: Back pain Instructions: DI for Low Back Pain Activity Restrictions/Additional Instructions: *You have been diagnosed with acute on chronic back pain *What to do: At this time increase activity as tolerated, light activity is encouraged no strenuous activity or heavy lifting *Continue to take medications as directed--> SENT TO [facility] Vincent 1 tablet every 6 hours if needed for severe pain Flexeril 1 tablet every 8 hours if needed for muscle spasm *Follow up with your primary care provider in 2-3 days or call [phone] *Return to ER if you should have increasing pain numbness tingling weakness loss of urine or stool or any new, worsening or concerning symptoms CONTROLLED SUBSTANCE DISCHARGE (Narcotoic/benzodiazepine/Flexeril/Phenergan) 1. You have been prescribed narcotic medications, it does have acetaminophen/Tylenol/paracetamol in it, DO NOT TAKE MORE THAN 4,00mg in 24 hours of Tylenol. TRAMADOL DOES NOT CONTAIN TYLENOL 2. Please understand that we cannot provide further refills of narcotics, benzodiazepines or controlled substances through the ED and her pain management will need to be through your provider. 3. While on these medications you cannot drive or operate heavy machinery. 4. You cannot sign legal documents or perform any duties such as this. 5. As long as you're taking opiate pain medications he should also be taking a stool softener such as Colace, Dulcolax, MiraLAX or prune juice, to help avoid constipation. Prescriptions: New hydrocodone-acetaminophen 5-325 mg tablet 1 tab PO Q6H PRN (Reason: pain) Qty: 10 0RF cyclobenzaprine 5 mg tablet 5 mg PO TID PRN (Reason: muscle spasm) Qty: 10 0RF No Action torsemide 20 mg tablet 40 mg PO DAILY allopurinol 300 mg tablet 300 mg PO DAILY colchicine [Colcrys] 0.6 mg tablet 0.6 mg PO DAILY PRN (Reason: Gout) gabapentin 300 mg capsule 600 mg PO QPM Patient Comments: patient states ran out escitalopram oxalate 20 mg tablet 20 mg PO DAILY ProAir RespiClick 90 mcg/actuation aerosol powdr breath activated 1 inh inhalation Q4-6H PRN (Reason: shortness of breath or wheezing) Qty: 1 0RF metformin 500 mg Tablet 1,000 mg PO BID atorvastatin 20 mg Tablet 20 mg PO QPM glipizide 10 mg Tablet 20 mg PO QAM diltiazem HCl 300 mg Capsule,Extended Release 24 Hr 300 mg PO DAILY omeprazole 40 mg Capsule,Delayed Release(Dr/Ec) 40 mg PO DAILY nitroglycerin 0.4 mg Tablet, Sublingual 0.4 mg SUBLINGUAL DAILY PRN (Reason: Chest Pain) potassium chloride [Klor-Con 10] 10 mEq Tablet Extended Release 10 meq PO QPM isosorbide mononitrate 60 mg Tablet Extended Release 24 Hr 60 mg PO DAILY flecainide 150 mg Tablet 150 mg PO QAM amitriptyline 10 mg tablet 10 mg PO QPM indomethacin 25 mg capsule 25 mg PO DAILY clotrimazole 1 % Cream 1 applic TOPICAL BID PRN (Reason: Rash) insulin glargine [Lantus Solostar U-100 Insulin] 100 unit/mL (3 mL) Insulin Pen 56 unit SUBCUT DAILY magnesium oxide 500 mg Capsule 500 mg PO BID pramipexole [Mirapex] 0.125 mg Tablet 0.125 mg PO fluticasone propionate [Allergy Relief (fluticasone)] 50 mcg/actuation [place],Suspension 1 spray INTRANASAL DAILY PRN (Reason: Allergy Symptoms) Rx Instructions: administer into each nostril sertraline [Zoloft] 50 mg Tablet 50 mg PO DAILY vitamin K2 100 mcg Capsule 100 mcg PO DAILY losartan 100 mg tablet Referrals: Riley Clayton MD [Primary Care Provider] - Stand Alone Forms: Patient Portal/API
[2023-04-09 23:53] VITALS: BP 152/89; PULSE 89; RESP 18; O2SAT 97
[2023-04-10 00:06] VITALS: BP 158/70; PULSE 71; TEMP 36.3; O2SAT 99
[2023-04-10] MEDS: HYDROCODONE/ACET 5/325 PREPACK 1 BOTTLE MISC (00:21)
== END 2023-04-10 00:27 | disposition home or self-care (01) ==
PROVIDERS: Emergency Provider Emergency Medicine; Family Provider Orthopaedic Surgery; PCP Internal Medicine
DX: M54.9 Dorsalgia, unspecified (principal); M62.830 Muscle spasm of back
CPT/HCPCS: 99281; 99283

== ENCOUNTER 2023-07-08 19:03 | Emergency (ER) | payer MEDICARE, OTHER, SELFPAY ==
[2023-07-08 19:07] VITALS: BP 153/86; PULSE 60; RESP 16; TEMP 36.8; O2SAT 99; BMI 43.5
--- NOTE | 2023-07-08 19:22 | DI.RAD.S_ITS ---
PROCEDURE: XR FOOT LT MIN 3V INDICATIONS: post op redness/increased pain/fall TECHNIQUE: 3 views of the foot were acquired. COMPARISON: [facility], CR, XR FOOT 3+ VIEWS LEFT, 06/30/2023, 11:53. [facility], CR, XR FOOT LT MIN 3V, 01/29/2022, 20:14. FINDINGS: Bones: 2nd and 3rd TMT fusion. Hardware is intact without hardware fracture or periprosthetic lucency to suggest loosening. Alignment is anatomic. Soft tissues: No tibiotalar joint effusion. Achilles tendon appears normal. Prominent dorsal soft tissue edema is present. IMPRESSION: Postoperative changes as above. Prominent dorsal soft tissue edema is present. While this could be postoperative, recommend correlation to superimposed infection or inflammation. Dictated by: Anastasiya Boyer M.D. on 07/08/2023 at 20:19 Approved by: Anastasiya Boyer M.D. on 07/08/2023 at 20:20
--- NOTE | 2023-07-08 19:22 | ED.WOUNDLAC ---
HPI - Wound/Laceration General Chief Complaint: Wound/Laceration Stated Complaint: needs left foot ascessed s/p surgery 06/30/23 Time Seen by Provider: 07/08/23 19:15 Source: patient Mode of arrival: Wheelchair History of Present Illness HPI narrative: Patient is a 73-year-old female proximally 1 week ago she had surgery on her left foot. She has had follow-up since then. She is currently on Keflex for concern for an infection. She has fallen a couple times since then. Over the past day or show she is noticed more redness and bleeding and discomfort. She contacted her operative surgeon who asked her to come to the emergency department to have the foot evaluated. Related Data Home Medications Medication Instructions Recorded Confirmed atorvastatin 20 mg tablet 20 mg PO QPM 07/23/18 08/09/22 diltiazem HCl 300 mg capsule,24 300 mg PO DAILY 07/23/18 08/09/22 hr,extended release glipizide 10 mg tablet 20 mg PO QAM 07/23/18 08/09/22 isosorbide mononitrate 60 mg 60 mg PO DAILY 07/23/18 08/09/22 tablet,extended release 24 hr metformin 500 mg tablet 1,000 mg PO BID 07/23/18 08/09/22 nitroglycerin 0.4 mg sublingual 0.4 mg sublingual DAILY PRN Chest 07/23/18 08/09/22 tablet Pain omeprazole 40 mg capsule,delayed 40 mg PO DAILY 07/23/18 08/09/22 release potassium chloride 10 mEq 10 meq PO QPM 07/23/18 08/09/22 tablet,extended release (Klor-Con) allopurinol 300 mg tablet 300 mg PO DAILY 11/26/18 08/09/22 colchicine (gout) 0.6 mg tablet 0.6 mg PO DAILY PRN Gout 11/26/18 08/09/22 escitalopram oxalate 20 mg tablet 20 mg PO DAILY 11/26/18 08/09/22 gabapentin 300 mg capsule 600 mg PO QPM 11/26/18 08/09/22 torsemide 20 mg tablet 40 mg PO DAILY 11/26/18 08/09/22 amitriptyline 10 mg tablet 10 mg PO QPM 04/16/22 08/09/22 clotrimazole 1 % topical cream 1 applic topical BID PRN Rash 04/16/22 08/09/22 flecainide 150 mg tablet 150 mg PO QAM 04/16/22 08/09/22 fluticasone propionate 50 1 spray intranasal DAILY PRN 04/16/22 08/09/22 mcg/actuation nasal Allergy Symptoms spray,suspension (Allergy Relief (fluticasone)) indomethacin 25 mg capsule 25 mg PO DAILY 04/16/22 08/09/22 insulin glargine 100 unit/mL (3 56 unit SUBCUT DAILY 04/16/22 08/09/22 mL) subcutaneous pen (Lantus Solostar U-100 Insulin) losartan 100 mg tablet mg 04/16/22 08/09/22 magnesium oxide 500 mg capsule 500 mg PO BID 04/16/22 08/09/22 pramipexole 0.125 mg tablet 0.125 mg PO 04/16/22 08/09/22 (Mirapex) sertraline 50 mg tablet (Zoloft) 50 mg PO DAILY 04/16/22 08/09/22 vitamin K2 100 mcg capsule 100 mcg PO DAILY 04/16/22 08/09/22 Previous Rx's Medication Instructions Recorded albuterol sulfate 90 mcg/actuation 1 inh inhalation Q4-6H PRN 01/11/23 breath activated powder inhaler shortness of breath or wheezing #1 (ProAir RespiClick) ea cyclobenzaprine 5 mg tablet 5 mg PO TID PRN muscle spasm #10 04/10/23 tabs hydrocodone 5 mg-acetaminophen 325 1 tab PO Q6H PRN pain #10 tabs 04/10/23 mg tablet doxycycline hyclate 100 mg tablet 100 mg PO BID 7 days #14 tabs 07/08/23 Allergies Allergy/AdvReac Type Severity Reaction Status Date / Time adhesive tape [ADHESIVE TAPE] Allergy Intermediate WELTS/Itching Verified 07/05/23 15:41 PAPER/SILK TAPE OK iodine [IODINE] Allergy Mild ITCHY AND Verified 07/05/23 15:41 RASH UNLESS WASHED OF corn Allergy Swelling Verified 07/05/23 15:41 of Lip/Tongue/Throat codeine [CODEINE] AdvReac Intermediate ITCHY Verified 07/05/23 15:41 hydrocodone [HYDROCODONE] AdvReac Intermediate ITCHY Verified 07/05/23 15:41 oxycodone [OXYCODONE] AdvReac Intermediate ITCHY Verified 07/05/23 15:41 Review of Systems Constitutional Constitutional: Reports system reviewed and no additional complaints, except as documented Musculoskeletal Musculoskeletal: Reports system reviewed and no additional complaints, except as documented Integumentary/Breasts Skin/Breast: Reports system reviewed and no additional complaints, except as documented Hematologic/Lymphatic On Anticoagulants: No Patient History Medical History Pain of left great toe ST segment abnormality (~08/2014) Basal cell carcinoma History of squamous cell carcinoma Actinic keratosis Seborrheic keratosis Skin lesion of back PVC (premature ventricular contraction) Spina bifida occulta GERD (gastroesophageal reflux disease) Osteoporosis Sleep apnea Hyperlipidemia Obesity (BMI 30-39.9) Valvular sclerosis Anemia Hypertension Type II diabetes mellitus Cardiac murmur Arthritis of left acromioclavicular joint Tear of left rotator cuff Surgical History History of appendectomy History of arthroscopy of both knees History of cholecystectomy History of colonoscopy History of esophagogastroduodenoscopy (EGD) History of hysterectomy History of repair of rotator cuff History of total left hip arthroplasty History of total right hip arthroplasty Social History household members: spouse Smoking Status: Current some day smoker Smoking Status: Current some day smoker tobacco type: vaping alcohol intake frequency: holidays/special occasions only Substance Use Type: does not use and other Exam Initial Vital Signs Initial Vital Signs: Vital Signs Temperature 98.3 F 07/08/23 19:07 Pulse Rate 60 07/08/23 19:07 Respiratory Rate 16 07/08/23 19:07 Blood Pressure 153/86 H 07/08/23 19:07 Pulse Oximetry 99 07/08/23 19:07 Oxygen Delivery Method Room Air 07/08/23 19:07 Const General: cooperative and No ill appearing HENMT Head: normal to inspection and normocephalic Skin Other: Surgical incisions on the dorsum of the left foot do have some surrounding erythema. There is some oozing of blood from the larger incision of the dorsum of the foot. I do not see any purulent drainage. There is no redness that projects above the ankle. Extrem Other: Surgical incisions left foot with some swelling consistent with her stated surgeries Course Orders Ordered: ED Orders 07/08/23 19:22 XR foot LT min 3V Stat Discontinued Medications Doxycycline Hyclate (Doxycycline Hyclate 100 Mg Tablet) 100 mg PO NOW ONE Stop: 07/08/23 20:31 Vital Signs Vital signs: Vital Signs - 8 hr 07/08/23 19:07 Temperature 98.3 F Pulse Rate 60 Respiratory Rate 16 Blood Pressure 153/86 H Pulse Oximetry 99 Oxygen Delivery Method Room Air MDM - Wound/Laceration Imaging Data Extremity x-ray #1: Radiologist's Impression: PROCEDURE: XR FOOT LT MIN 3V INDICATIONS: post op redness/increased pain/fall TECHNIQUE: 3 views of the foot were acquired. COMPARISON: [facility], CR, XR FOOT 3+ VIEWS LEFT, 06/30/2023, 11:53. [facility], CR, XR FOOT LT MIN 3V, 01/29/2022, 20:14. FINDINGS: Bones: 2nd and 3rd TMT fusion. Hardware is intact without hardware fracture or periprosthetic lucency to suggest loosening. Alignment is anatomic. Soft tissues: No tibiotalar joint effusion. Achilles tendon appears normal. Prominent dorsal soft tissue edema is present. IMPRESSION: Postoperative changes as above. Prominent dorsal soft tissue edema is present. While this could be postoperative, recommend correlation to superimposed infection or inflammation MDM Narrative Medical decision making narrative: X-ray does not show any signs of fracture or unexpected postoperative changes. The area around the stitches does appear to be cellulitic. She is been on Keflex this does not appear to be improving. Will switch her to doxycycline. She was given a 1st dose here in the ER. She does have some drainage of blood from the wound on the dorsum of her foot. There was no crepitus felt. This is not purulent drainage. Will discharge the patient home on new antibiotic. She was advised to contact the operative surgeon tomorrow for a follow-up. She already has 1 scheduled for approximately 1 week from now but I suspect that they will want to see her sooner than that. She was given return precautions. She expressed understanding and agreement. Discharge Plan Departure Patient Disposition: Home Clinical Impression: Postoperative wound cellulitis Instructions: DI for Cellulitis -- Adult Activity Restrictions/Additional Instructions: You can stop taking the Keflex/cephalexin. Start taking the new antibiotic as directed. I also recommend that you contact the operative provider tomorrow to let them know that you were seen here this evening and we switched antibiotics as they may want to see you sooner than your scheduled follow-up appointment. Return to the emergency department for worsening symptoms. Follow all of the postoperative instructions given to you by the operative surgeon Prescriptions: New doxycycline hyclate 100 mg tablet 100 mg PO BID 7 Days Qty: 14 0RF No Action torsemide 20 mg tablet 40 mg PO DAILY allopurinol 300 mg tablet 300 mg PO DAILY colchicine (gout) [Colcrys] 0.6 mg tablet 0.6 mg PO DAILY PRN (Reason: Gout) gabapentin 300 mg capsule 600 mg PO QPM Patient Comments: patient states ran out escitalopram oxalate 20 mg tablet 20 mg PO DAILY ProAir RespiClick 90 mcg/actuation aerosol powdr breath activated 1 inh inhalation Q4-6H PRN (Reason: shortness of breath or wheezing) Qty: 1 0RF hydrocodone-acetaminophen 5-325 mg tablet 1 tab PO Q6H PRN (Reason: pain) Qty: 10 0RF cyclobenzaprine 5 mg tablet 5 mg PO TID PRN (Reason: muscle spasm) Qty: 10 0RF metformin 500 mg Tablet 1,000 mg PO BID atorvastatin 20 mg Tablet 20 mg PO QPM glipizide 10 mg Tablet 20 mg PO QAM diltiazem HCl 300 mg Capsule,Extended Release 24 Hr 300 mg PO DAILY omeprazole 40 mg Capsule,Delayed Release(Dr/Ec) 40 mg PO DAILY nitroglycerin 0.4 mg Tablet, Sublingual 0.4 mg SUBLINGUAL DAILY PRN (Reason: Chest Pain) potassium chloride [Klor-Con 10] 10 mEq Tablet Extended Release 10 meq PO QPM isosorbide mononitrate 60 mg Tablet Extended Release 24 Hr 60 mg PO DAILY flecainide 150 mg Tablet 150 mg PO QAM amitriptyline 10 mg tablet 10 mg PO QPM indomethacin 25 mg capsule 25 mg PO DAILY clotrimazole 1 % Cream 1 applic TOPICAL BID PRN (Reason: Rash) insulin glargine [Lantus Solostar U-100 Insulin] 100 unit/mL (3 mL) Insulin Pen 56 unit SUBCUT DAILY magnesium oxide 500 mg Capsule 500 mg PO BID pramipexole [Mirapex] 0.125 mg Tablet 0.125 mg PO fluticasone propionate [Allergy Relief (fluticasone)] 50 mcg/actuation [place],Suspension 1 spray INTRANASAL DAILY PRN (Reason: Allergy Symptoms) Rx Instructions: administer into each nostril sertraline [Zoloft] 50 mg Tablet 50 mg PO DAILY vitamin K2 100 mcg Capsule 100 mcg PO DAILY losartan 100 mg tablet Referrals: Riley Clayton MD [Primary Care Provider] - Stand Alone Forms: Patient Portal/API
[2023-07-08] MEDS: DOXYCYCLINE HYCLATE 100 MG TABLET PO (20:37)
[2023-07-08 20:42] VITALS: BP 137/63; PULSE 70; RESP 18; O2SAT 98
== END 2023-07-08 20:51 | disposition home or self-care (01) ==
PROVIDERS: Emergency Provider Emergency Medicine; Family Provider Orthopaedic Surgery; PCP Internal Medicine
DX: T81.49XA Infection following a procedure, other surgical site, initial encounter (principal)
CPT/HCPCS: 73630; 99283

== ENCOUNTER 2024-01-12 11:46 | Emergency (ER) | payer MEDICARE, OTHER, SELFPAY ==
[2024-01-12] VITALS (8 sets, daily range): BP systolic 132–153; BP diastolic 71–73; PULSE 67–94; RESP 18–27; TEMP 36.6; O2SAT 95–98; BMI 43.5
[2024-01-12 12:48] LABS: Add Manual Diff / Slide Review NO; Basophils Absolute Auto 100 /uL (0-100); Eosinophils Absolute Auto 300 /uL (0-450); Eosinophils Percent Auto 3.1 % (2-4); Hematocrit 39.5 % (36-46); Hemoglobin 13.2 g/dL (12.0-16.0); Lymphocytes Absolute Auto 1800 /uL (1100-4500); Mean Corpuscular HGB Conc 33.5 % (30-36); Mean Corpuscular Hemoglobin 29.1 PG (26-34); Mean Corpuscular Volume 86.9 fL (80-100); Monocytes Absolute Auto 600 /uL (0-900); Monocytes Percent Auto 6.6 % (3-14); Neutrophils Absolute Auto 5700 /uL (1500-7000); Neutrophils Percent Auto 68.3 % (50-75); Platelet Count 275 X10^3/uL (150-400); Red Blood Cell Count 4.54 X10^6/uL (4.0-5.2); Red Cell Distribution Width 14.2 % (11.6-14.8); White Blood Cell Count 8.4 X10^3/uL (4.5-11.0)
[2024-01-12 12:57] LABS: Alanine Aminotransferase 18 IU/L (<35); Albumin 4.2 g/dL (3.5-5.0); Albumin Globulin Ratio 1.2 (1.0-2.8); Alkaline Phosphatase 88 U/L (38-126); Aspartate Aminotransferase 20 IU/L (14-36); BUN Creatinine Ratio 25.9 (6-22); Bilirubin Total 0.5 mg/dL (0.2-1.3); Blood Urea Nitrogen 30 mg/dL (7-17); Calcium 9.2 mg/dL (8.4-10.2); Carbon Dioxide 27 mmol/L (22-32); Chloride 104 mmol/L (98-107); Estimated Glomerular Filt Rate 50 mL/min (>60); Globulin 3.4 g/dL (1.7-4.1); Glucose 88 mg/dL (80-110); HEMOLYSIS 22 (0-50); Potassium 3.6 mmol/L (3.4-5.1); Sodium 139 mmol/L (137-145); Total Protein 7.6 g/dL (6.3-8.2)
--- NOTE | 2024-01-12 13:17 | ED.GENADULT ---
HPI - General Adult General Chief complaint: Diabetic Problem Stated complaint: wrong dosage of insulin Time Seen by Provider: 01/12/24 12:17 Source: patient Mode of arrival: Ambulatory History of Present Illness HPI narrative: Patient here with family. Sent in by primary care for accidental overdose of NovoLog. Patient was supposed to take at 10:00 a.m. today 36 units of Lantus and 14 units of NovoLog. However she took 36 units of NovoLog. She did not not not take any Lantus. She has no other complaints. No nausea no sweating no syncope no seizure no weakness no dizziness. Related Data Home Medications Medication Instructions Recorded Confirmed atorvastatin 20 mg tablet 20 mg PO QPM 07/23/18 08/09/22 diltiazem HCl 300 mg capsule,24 300 mg PO DAILY 07/23/18 08/09/22 hr,extended release glipizide 10 mg tablet 20 mg PO QAM 07/23/18 08/09/22 isosorbide mononitrate 60 mg 60 mg PO DAILY 07/23/18 08/09/22 tablet,extended release 24 hr metformin 500 mg tablet 1,000 mg PO BID 07/23/18 08/09/22 nitroglycerin 0.4 mg sublingual 0.4 mg sublingual DAILY PRN Chest 07/23/18 08/09/22 tablet Pain omeprazole 40 mg capsule,delayed 40 mg PO DAILY 07/23/18 08/09/22 release potassium chloride 10 mEq 10 meq PO QPM 07/23/18 08/09/22 tablet,extended release (Klor-Con) allopurinol 300 mg tablet 300 mg PO DAILY 11/26/18 08/09/22 colchicine 0.6 mg tablet 0.6 mg PO DAILY PRN Gout 11/26/18 08/09/22 escitalopram oxalate 20 mg tablet 20 mg PO DAILY 11/26/18 08/09/22 gabapentin 300 mg capsule 600 mg PO QPM 11/26/18 08/09/22 torsemide 20 mg tablet 40 mg PO DAILY 11/26/18 08/09/22 amitriptyline 10 mg tablet 10 mg PO QPM 04/16/22 08/09/22 clotrimazole 1 % topical cream 1 applic topical BID PRN Rash 04/16/22 08/09/22 flecainide 150 mg tablet 150 mg PO QAM 04/16/22 08/09/22 fluticasone propionate 50 1 spray intranasal DAILY PRN 04/16/22 08/09/22 mcg/actuation nasal Allergy Symptoms spray,suspension (Allergy Relief (fluticasone)) indomethacin 25 mg capsule 25 mg PO DAILY 04/16/22 08/09/22 insulin glargine 100 unit/mL (3 56 unit SUBCUT DAILY 04/16/22 08/09/22 mL) subcutaneous pen (Lantus Solostar U-100 Insulin) losartan 100 mg tablet mg 04/16/22 08/09/22 magnesium oxide 500 mg capsule 500 mg PO BID 04/16/22 08/09/22 pramipexole 0.125 mg tablet 0.125 mg PO 04/16/22 08/09/22 (Mirapex) sertraline 50 mg tablet (Zoloft) 50 mg PO DAILY 04/16/22 08/09/22 vitamin K2 100 mcg capsule 100 mcg PO DAILY 04/16/22 08/09/22 Previous Rx's Medication Instructions Recorded albuterol sulfate 90 mcg/actuation 1 inh inhalation Q4-6H PRN 01/11/23 breath activated powder inhaler shortness of breath or wheezing #1 (ProAir RespiClick) ea cyclobenzaprine 5 mg tablet 5 mg PO TID PRN muscle spasm #10 04/10/23 tabs hydrocodone 5 mg-acetaminophen 325 1 tab PO Q6H PRN pain #10 tabs 04/10/23 mg tablet Allergies Allergy/AdvReac Type Severity Reaction Status Date / Time adhesive tape [ADHESIVE TAPE] Allergy Intermediate WELTS/Itching Verified 01/12/24 11:58 PAPER/SILK TAPE OK iodine [IODINE] Allergy Mild ITCHY AND Verified 01/12/24 11:58 RASH UNLESS WASHED OF corn Allergy Swelling Verified 01/12/24 11:58 of Lip/Tongue/Throat codeine [CODEINE] AdvReac Intermediate ITCHY Verified 01/12/24 11:58 hydrocodone [HYDROCODONE] AdvReac Intermediate ITCHY Verified 01/12/24 11:58 oxycodone [OXYCODONE] AdvReac Intermediate ITCHY Verified 01/12/24 11:58 Review of Systems Review of Systems Narrative: GENERAL: negative chills, fatigue, malaise, fever, sweats. HEENT: negative sinus pain, ear pain, sore throat RESPIRATORY: negative dyspnea, cough CARDIOVASCULAR: negative chest pain, palpitations GASTROINTESTINAL: negative nausea, vomiting, abdominal pain : negative dysuria, frequency, hematuria MUSCULOSKELETAL: negative muscle or bony pain SKIN: negative rash, skin lesions NEUROLOGIC: negative weakness, numbness ROS Unobtainable: All systems reviewed & are unremarkable except as noted in HPI and below Patient History Medical History Pain of left great toe ST segment abnormality (~08/2014) Basal cell carcinoma History of squamous cell carcinoma Actinic keratosis Seborrheic keratosis Skin lesion of back PVC (premature ventricular contraction) Spina bifida occulta GERD (gastroesophageal reflux disease) Osteoporosis Sleep apnea Hyperlipidemia Obesity (BMI 30-39.9) Valvular sclerosis Anemia Hypertension Type II diabetes mellitus Cardiac murmur Arthritis of left acromioclavicular joint Tear of left rotator cuff Surgical History History of total left hip arthroplasty History of colonoscopy History of esophagogastroduodenoscopy (EGD) History of arthroscopy of both knees History of cholecystectomy History of appendectomy History of hysterectomy History of total right hip arthroplasty History of repair of rotator cuff Social History household members: spouse Smoking Status: Current some day smoker Smoking Status: Current some day smoker tobacco type: vaping alcohol intake frequency: holidays/special occasions only Substance Use Type: does not use and other Exam Narrative Exam Narrative: GENERAL: in no distress, not toxic not dyspneic HEAD: Normocephalic. EYES: Pupils equal round ENT: Mucous membranes moist. NECK: Trachea midline. CARDIOVASCULAR: Regular rate and rhythm RESPIRATORY: Clear to auscultation. Breath sounds equal bilaterally. No wheezes, rales, or rhonchi. GASTROINTESTINAL: Abdomen soft, non-tender EXTREMITIES: No gross deformities. BACK: No flank tenderness. NEURO: AOx4. SKIN: Warm and dry PSYCH: Not anxious, is cooperative Initial Vital Signs Initial Vital Signs: Vital Signs Temperature 97.8 F 01/12/24 11:58 Pulse Rate 94 H 01/12/24 11:58 Respiratory Rate 18 01/12/24 11:58 Blood Pressure 153/71 H 01/12/24 11:58 Pulse Oximetry 97 01/12/24 11:58 Oxygen Delivery Method Room Air 01/12/24 11:58 Course Orders Ordered: ED Orders 01/12/24 12:29 Complete Blood Count AUTO DIFF Stat Comprehensive Metabolic Panel Stat Vital Signs Vital signs: Vital Signs - 8 hr 01/12/24 11:58 01/12/24 12:13 01/12/24 12:14 Temperature 97.8 F Pulse Rate 94 H 93 H 88 Respiratory Rate 18 Blood Pressure 153/71 H Pulse Oximetry 97 95 96 Oxygen Delivery Method Room Air 01/12/24 12:14 01/12/24 12:30 01/12/24 13:00 Temperature Pulse Rate 91 H 84 Respiratory Rate 27 H 21 Blood Pressure 132/73 Pulse Oximetry 97 98 Oxygen Delivery Method 01/12/24 13:30 01/12/24 14:00 Temperature Pulse Rate 70 67 Respiratory Rate 21 21 Blood Pressure Pulse Oximetry 97 98 Oxygen Delivery Method Medical Decision Making Lab Data 01/12/24 12:29 01/12/24 12:29 Labs: Lab Results 01/12/24 Range/Units 12:29 WBC 8.4 (4.5-11.0) X10^3/uL RBC 4.54 (4.0-5.2) X10^6/uL Hgb 13.2 (12.0-16.0) g/dL Hct 39.5 (36-46) % MCV 86.9 (80-100) fL MCH 29.1 (26-34) PG MCHC 33.5 (30-36) % RDW 14.2 (11.6-14.8) % Plt Count 275 (150-400) X10^3/uL Neut % (Auto) 68.3 (50-75) % Lymph % (Auto) 21.0 L (25-40) % [place] % (Auto) 6.6 (3-14) % Eos % (Auto) 3.1 (2-4) % Baso % (Auto) 1.0 (0-2) % Neut # (Auto) 5700 (7396-4070) /uL Lymph # (Auto) 1800 (6600-1752) /uL [place] # (Auto) 600 (0-900) /uL Eos # (Auto) 300 (0-450) /uL Baso # (Auto) 100 (0-100) /uL Sodium 139 (137-145) mmol/L Potassium 3.6 (3.4-5.1) mmol/L Chloride 104 (98-107) mmol/L Carbon Dioxide 27 (22-32) mmol/L BUN 30 H (7-17) mg/dL Creatinine 1.16 H (0.52-1.04) mg/dL Estimated GFR 50 L (>60) mL/min BUN/Creatinine Ratio 25.9 H (6-22) Glucose 88 (80-110) mg/dL Calcium 9.2 (8.4-10.2) mg/dL Total Bilirubin 0.5 (0.2-1.3) mg/dL AST 20 (14-36) IU/L ALT 18 (<35) IU/L Alkaline Phosphatase 88 (38-126) U/L Total Protein 7.6 (6.3-8.2) g/dL Albumin 4.2 (3.5-5.0) g/dL Globulin 3.4 (1.7-4.1) g/dL Albumin/Globulin Ratio 1.2 (1.0-2.8) Point of Care Testing Glucose POC 89 Urine Dip Bedside Urine Glucose Negative Bedside Urine Bilirubin - Negative Bedside Urine Ketone - Negative Urine Specific [place] 1.015 Bedside Urine Occult Blood - Negative Bedside Urine pH 6.0 Bedside Urine Protein - Negative Bedside Urine Urobilinogen - Negative Bedside Urine Nitrite - Negative Bedside Urine Leukocytes - Negative Esterase Point of care testing: Point of Care Testing Glucose POC 89 Urine Dip Bedside Urine Glucose Negative Bedside Urine Bilirubin - Negative Bedside Urine Ketone - Negative Urine Specific [place] 1.015 Bedside Urine Occult Blood - Negative Bedside Urine pH 6.0 Bedside Urine Protein - Negative Bedside Urine Urobilinogen - Negative Bedside Urine Nitrite - Negative Bedside Urine Leukocytes - Negative Esterase [facility] Narrative Medical decision making narrative: Patient here with family. Sent in by primary care for accidental overdose of NovoLog. Patient was supposed to take at 10:00 a.m. today 36 units of Lantus and 14 units of NovoLog. However she took 36 units of NovoLog. She did not not not take any Lantus. She has no other complaints. No nausea no sweating no syncope no seizure no weakness no dizziness. After history and exam CBC CMP, Q hour glucose checks [facility] Medical records reviewed: No recent visit for this complaint Differential considered: Includes but not limited to insulin overdose/accidental Lab Test results independently reviewed as above. Pertinent findings: Glucose 88 Repeat blood glucose exams during course of stay 105, 99, 105, 91, 89 Treatments: Observation, no medications indicated at this time Re-evaluations: 3:26 p.m.. Patient has been doing very well. It has been 5 hours since she took the insulin. Never had hypoglycemia here. Was eating here as well. No complaints during course of stay. Return precautions reviewed with her. Informed her not to take anymore insulin today and may resume tomorrow with her regular regimen of medications. Not toxic at discharge. Patient and family desire discharge home Discussion: Appropriate for discharge home. Exam is reassuring. NovoLog is short-acting, patient has had 5 hours since injection. Has been eating food. No events of hypoglycemia. Is asymptomatic. Return precautions reviewed. Nontoxic at discharge. Patient and family desire discharge home Diagnosis: Accidental insulin overdose Discharge Plan Departure Patient Disposition: Home Clinical Impression: Accidental overdose of insulin Instructions: DI for Drug Overdose in Adults Activity Restrictions/Additional Instructions: Please do not take your insulin today. May resume your insulin regimen tomorrow. It has been 5 hours since you have taken the overdose amount of insulin this morning. Your sugars have remained normal. However, return if worse if any questions or concerns or if any nausea sweating feeling faint or dizzy or any seizure-like activity. See family doctor within a week for re-evaluation. Prescriptions: No Action torsemide 20 mg tablet 40 mg PO DAILY allopurinol 300 mg tablet 300 mg PO DAILY colchicine [Colcrys] 0.6 mg tablet 0.6 mg PO DAILY PRN (Reason: Gout) gabapentin 300 mg capsule 600 mg PO QPM Patient Comments: patient states ran out escitalopram oxalate 20 mg tablet 20 mg PO DAILY ProAir RespiClick 90 mcg/actuation aerosol powdr breath activated 1 inh inhalation Q4-6H PRN (Reason: shortness of breath or wheezing) Qty: 1 0RF hydrocodone-acetaminophen 5-325 mg tablet 1 tab PO Q6H PRN (Reason: pain) Qty: 10 0RF cyclobenzaprine 5 mg tablet 5 mg PO TID PRN (Reason: muscle spasm) Qty: 10 0RF metformin 500 mg Tablet 1,000 mg PO BID atorvastatin 20 mg Tablet 20 mg PO QPM glipizide 10 mg Tablet 20 mg PO QAM diltiazem HCl 300 mg Capsule,Extended Release 24 Hr 300 mg PO DAILY omeprazole 40 mg Capsule,Delayed Release(Dr/Ec) 40 mg PO DAILY nitroglycerin 0.4 mg Tablet, Sublingual 0.4 mg SUBLINGUAL DAILY PRN (Reason: Chest Pain) potassium chloride [Klor-Con 10] 10 mEq Tablet Extended Release 10 meq PO QPM isosorbide mononitrate 60 mg Tablet Extended Release 24 Hr 60 mg PO DAILY flecainide 150 mg Tablet 150 mg PO QAM amitriptyline 10 mg tablet 10 mg PO QPM indomethacin 25 mg capsule 25 mg PO DAILY clotrimazole 1 % Cream 1 applic TOPICAL BID PRN (Reason: Rash) insulin glargine [Lantus Solostar U-100 Insulin] 100 unit/mL (3 mL) Insulin Pen 56 unit SUBCUT DAILY magnesium oxide 500 mg Capsule 500 mg PO BID pramipexole [Mirapex] 0.125 mg Tablet 0.125 mg PO fluticasone propionate [Allergy Relief (fluticasone)] 50 mcg/actuation [place],Suspension 1 spray INTRANASAL DAILY PRN (Reason: Allergy Symptoms) Rx Instructions: administer into each nostril sertraline [Zoloft] 50 mg Tablet 50 mg PO DAILY vitamin K2 100 mcg Capsule 100 mcg PO DAILY losartan 100 mg tablet Referrals: Riley Clayton MD [Primary Care Provider] - Stand Alone Forms: Patient Portal/API
== END 2024-01-12 15:36 | disposition home or self-care (01) ==
PROVIDERS: Emergency Provider Emergency Medicine; Family Provider Orthopaedic Surgery; PCP Internal Medicine
DX: T38.3X1A Poisoning by insulin and oral hypoglycemic [antidiabetic] drugs, accidental (unintentional), initial encounter (principal)
CPT/HCPCS: 36415; 80053; 81003; 82962; 85025; 99283

== ENCOUNTER 2024-10-24 10:14 | Emergency (ER) | payer MEDICARE, OTHER, SELFPAY ==
[2024-10-24] VITALS (13 sets, daily range): BP systolic 136–195; BP diastolic 57–88; PULSE 59–80; RESP 12–26; TEMP 36.2; O2SAT 92–100; BMI 42.6
--- NOTE | 2024-10-24 10:55 | ED_ITS ---
HPI - Abdominal Pain General Chief Complaint: Urogenital-Female Stated Complaint: Per patient , Might have a kidney stone Time Seen by Provider: 10/24/24 10:55 History of Present Illness HPI narrative: 74-year-old female past medical history of diabetes hypertension CKD stage III comes into the ED from home for evaluation of right-sided flank pain, states that it began around 2:00 a.m. today, states that she believes she might be having a kidney stone however she states that she does not have a history of this. She states that her symptoms are waxing and waning, currently not having any pain at this time, patient does endorse some nausea but no vomiting. She denies any symptoms such as headache visual disturbances chest pain shortness of breath fever chills or any other GI/ symptoms at this time. States that she has had cholecystectomy and appendectomy Related Data Home Medications Medication Instructions Recorded Confirmed atorvastatin 20 mg tablet 20 mg PO QPM 07/23/18 08/09/22 diltiazem HCl 300 mg capsule,24 300 mg PO DAILY 07/23/18 08/09/22 hr,extended release glipizide 10 mg tablet 20 mg PO QAM 07/23/18 08/09/22 isosorbide mononitrate 60 mg 60 mg PO DAILY 07/23/18 08/09/22 tablet,extended release 24 hr metformin 500 mg tablet 1,000 mg PO BID 07/23/18 08/09/22 nitroglycerin 0.4 mg sublingual 0.4 mg sublingual DAILY PRN Chest 07/23/18 08/09/22 tablet Pain omeprazole 40 mg capsule,delayed 40 mg PO DAILY 07/23/18 08/09/22 release potassium chloride 10 mEq 10 meq PO QPM 07/23/18 08/09/22 tablet,extended release (Klor-Con) allopurinol 300 mg tablet 300 mg PO DAILY 11/26/18 08/09/22 colchicine 0.6 mg tablet 0.6 mg PO DAILY PRN Gout 11/26/18 08/09/22 escitalopram oxalate 20 mg tablet 20 mg PO DAILY 11/26/18 08/09/22 gabapentin 300 mg capsule 600 mg PO QPM 11/26/18 08/09/22 torsemide 20 mg tablet 40 mg PO DAILY 11/26/18 08/09/22 amitriptyline 10 mg tablet 10 mg PO QPM 04/16/22 08/09/22 clotrimazole 1 % topical cream 1 applic topical BID PRN Rash 04/16/22 08/09/22 flecainide 150 mg tablet 150 mg PO QAM 04/16/22 08/09/22 fluticasone propionate 50 1 spray intranasal DAILY PRN 04/16/22 08/09/22 mcg/actuation nasal Allergy Symptoms spray,suspension (Allergy Relief (fluticasone)) indomethacin 25 mg capsule 25 mg PO DAILY 04/16/22 08/09/22 insulin glargine 100 unit/mL (3 56 unit SUBCUT DAILY 04/16/22 08/09/22 mL) subcutaneous pen (Lantus Solostar U-100 Insulin) losartan 100 mg tablet mg 04/16/22 08/09/22 magnesium oxide 500 mg capsule 500 mg PO BID 04/16/22 08/09/22 pramipexole 0.125 mg tablet 0.125 mg PO 04/16/22 08/09/22 (Mirapex) sertraline 50 mg tablet (Zoloft) 50 mg PO DAILY 04/16/22 08/09/22 vitamin K2 100 mcg capsule 100 mcg PO DAILY 04/16/22 08/09/22 Previous Rx's Medication Instructions Recorded albuterol sulfate 90 mcg/actuation 1 inh inhalation Q4-6H PRN 01/11/23 breath activated powder inhaler shortness of breath or wheezing #1 (ProAir RespiClick) ea cyclobenzaprine 5 mg tablet 5 mg PO TID PRN muscle spasm #10 04/10/23 tabs hydrocodone 5 mg-acetaminophen 325 1 tab PO Q6H PRN pain #10 tabs 04/10/23 mg tablet Allergies Allergy/AdvReac Type Severity Reaction Status Date / Time adhesive tape [ADHESIVE TAPE] Allergy Intermediate WELTS/Itching Verified 01/12/24 11:58 PAPER/SILK TAPE OK iodine [IODINE] Allergy Mild ITCHY AND Verified 01/12/24 11:58 RASH UNLESS WASHED OF corn Allergy Swelling Verified 01/12/24 11:58 of Lip/Tongue/Throat codeine [CODEINE] AdvReac Intermediate ITCHY Verified 01/12/24 11:58 hydrocodone [HYDROCODONE] AdvReac Intermediate ITCHY Verified 01/12/24 11:58 oxycodone [OXYCODONE] AdvReac Intermediate ITCHY Verified 01/12/24 11:58 Review of Systems Review of Systems Narrative: General: Denies fever, chills, weight loss HEENT: Denies headache, eye drainage, eye irritation, head trauma, sore throat, voice change Cardiovascular: Denies any chest pain, palpitations, shortness of breath, tachycardia Respiratory: Denies any shortness of breath, cough, wheeze, stridor GI/: Positive right-sided flank and abdominal pain, nausea, denies vomiting, diarrhea, bright red blood per rectum, melanotic stools, urinary frequency, urinary retention, dysuria, hematuria MSK: Denies any joint pain, muscle pains, swelling Skin: Denies any rashes, lesions, discoloration Neuro: Denies any headache, lightheadedness, dizziness, fainting, weakness Psych: Denies SI/HI Patient History Medical History Pain of left great toe ST segment abnormality (~08/2014) Basal cell carcinoma History of squamous cell carcinoma Actinic keratosis Seborrheic keratosis Skin lesion of back PVC (premature ventricular contraction) Spina bifida occulta GERD (gastroesophageal reflux disease) Osteoporosis Sleep apnea Hyperlipidemia Obesity (BMI 30-39.9) Valvular sclerosis Anemia Hypertension Type II diabetes mellitus Cardiac murmur Arthritis of left acromioclavicular joint Tear of left rotator cuff Surgical History History of total left hip arthroplasty History of colonoscopy History of esophagogastroduodenoscopy (EGD) History of arthroscopy of both knees History of cholecystectomy History of appendectomy History of hysterectomy History of total right hip arthroplasty History of repair of rotator cuff Social History household members: spouse Smoking Status: Current some day smoker Smoking Status: Current some day smoker tobacco type: vaping alcohol intake frequency: holidays/special occasions only Exam Narrative Exam Narrative: General: Cooperative, comfortable, well-developed, not in acute distress HEENT: Normocephalic, atraumatic, PERRLA, normal sclera, eyelids normal, Neck: Active full range of motion, atraumatic Chest: Normal to inspection, negative crepitus, no overlying erythema ecchymosis Respiratory: Normal respiratory effort, not in acute respiratory distress, clear to auscultation bilaterally negative cough, wheeze, tachypnea, rhonchi, rales Cardiology: Regular rate rhythm negative gallop, murmur, rubs GI/: Normal to inspection, soft, nonrigid, no tenderness to palpation, exam deferred MSK: Full range of active range of motion of all 4 extremities, atraumatic Skin: No rashes lesions noted Neuro: Alert awake oriented x3, moves all 4 extremities spontaneously, cranial nerves intact, able to answer all questions appropriately follows commands appropriately Psych: Cooperative, negative suicidal or homicidal ideations Initial Vital Signs Initial Vital Signs: Vital Signs Temperature 97.2 F L 10/24/24 10:18 Pulse Rate 65 10/24/24 10:18 Respiratory Rate 18 10/24/24 10:18 Blood Pressure 195/80 H 10/24/24 10:18 Pulse Oximetry 100 10/24/24 10:18 Oxygen Delivery Method Room Air 10/24/24 10:18 Course Orders Ordered: ED Orders 10/24/24 11:00 CBC Auto Diff [Complete Blood Count AUTO DIFF] Stat CMP [Comprehensive Metabolic Panel] Stat Lipase Stat MAG [Magnesium] Stat Troponin & CK Cardiac Panel Stat 10/24/24 11:04 CT abdomen pelvis wo con Stat CXR [XR chest 1V] Stat EKG-12 Lead Stat 10/24/24 12:05 US pelvic complete Stat Ondansetron HCl (Ondansetron 4 Mg/2 Ml Inj) 4 mg IV NOW PRN PRN Reason: Nausea And Vomiting Ondansetron HCl (Ondansetron 4 Mg Odt) 4 mg SL NOW PRN PRN Reason: Nausea And Vomiting Discontinued Medications Ondansetron HCl (Ondansetron 4 Mg/2 Ml Inj) 4 mg IV NOW ONE Stop: 10/24/24 11:05 Last Admin: 10/24/24 12:02 Dose: 4 mg Documented By: BIJAL Vital Signs Vital signs: Vital Signs - 8 hr 10/24/24 10:18 10/24/24 10:52 10/24/24 10:53 Temperature 97.2 F L Pulse Rate 65 78 Respiratory Rate 18 Blood Pressure 195/80 H 184/83 H Pulse Oximetry 100 95 Oxygen Delivery Method Room Air 10/24/24 10:53 10/24/24 11:00 10/24/24 11:26 Temperature Pulse Rate 78 74 Respiratory Rate Blood Pressure 176/70 H Pulse Oximetry 98 98 Oxygen Delivery Method 10/24/24 11:26 10/24/24 12:00 10/24/24 12:02 Temperature Pulse Rate 61 80 Respiratory Rate 17 Blood Pressure 179/88 H Pulse Oximetry 97 92 Oxygen Delivery Method 10/24/24 12:02 10/24/24 12:30 10/24/24 12:31 Temperature Pulse Rate 63 63 Respiratory Rate 12 26 H Blood Pressure 162/67 H Pulse Oximetry 98 97 Oxygen Delivery Method 10/24/24 12:31 Temperature Pulse Rate 60 Respiratory Rate 19 Blood Pressure Pulse Oximetry 97 Oxygen Delivery Method MDM - Abdominal Pain Differential Diagnosis Differential diagnosis: Likely abdominal pain, diverticulitis and other (ACS, nephrolithiasis, urolithiasis, pyelonephritis, urinary tract infection) Lab Data 10/24/24 11:00 10/24/24 11:00 Labs: Lab Results 10/24/24 Range/Units 11:00 WBC 8.9 (4.5-11.0) X10^3/uL RBC 4.83 (4.0-5.2) X10^6/uL Hgb 13.8 (12.0-16.0) g/dL Hct 42.3 (36-46) % MCV 87.6 (80-100) fL MCH 28.7 (26-34) PG MCHC 32.8 (30-36) % RDW 14.0 (11.6-14.8) % Plt Count 283 (150-400) X10^3/uL Neut % (Auto) 67.1 (50-75) % Lymph % (Auto) 20.9 L (25-40) % [place] % (Auto) 6.0 (3-14) % Eos % (Auto) 4.5 H (2-4) % Baso % (Auto) 1.5 (0-2) % Neut # (Auto) 5900 (7584-9854) /uL Lymph # (Auto) 1900 (7487-1844) /uL [place] # (Auto) 500 (0-900) /uL Eos # (Auto) 400 (0-450) /uL Baso # (Auto) 100 (0-100) /uL Sodium 139 (137-145) mmol/L Potassium 4.5 (3.4-5.1) mmol/L Chloride 103 (98-107) mmol/L Carbon Dioxide 28 (22-32) mmol/L BUN 33 H (7-17) mg/dL Creatinine 1.47 H (0.52-1.04) mg/dL Estimated GFR 37 L (>60) mL/min BUN/Creatinine Ratio 22.4 H (6-22) Glucose 123 H (80-110) mg/dL Calcium 8.9 (8.4-10.2) mg/dL Magnesium 1.9 (1.6-2.3) mg/dL Total Bilirubin 0.5 (0.2-1.3) mg/dL AST 26 (14-36) IU/L ALT 24 (<35) IU/L Alkaline Phosphatase 108 (38-126) U/L Total Creatine Kinase 86 (30-135) U/L Troponin I < 0.012 (0.01-0.034) ng/mL Total Protein 7.5 (6.3-8.2) g/dL Albumin 4.1 (3.5-5.0) g/dL Globulin 3.4 (1.7-4.1) g/dL Albumin/Globulin Ratio 1.2 (1.0-2.8) Lipase 107 (23-300) U/L Point of care testing: Urine Dip Bedside Urine Glucose 1000 mg/dl Bedside Urine Bilirubin - Negative Bedside Urine Ketone - Negative Urine Specific [place] 1.010 Bedside Urine Occult Blood - Negative Bedside Urine pH 7.0 Bedside Urine Protein - Negative Bedside Urine Urobilinogen - Negative Bedside Urine Nitrite - Negative Bedside Urine Leukocytes - Negative Esterase Imaging Data Chest x-ray: Radiologist's Impression: [address] [id number] XRay Report Signed Patient: Sherry Mcknight MR#: [id number] : 1950 Acct:[id number] Age/Sex: 74 / F Date of Service: 10/24/24 Loc: ED Accession Number: [id number] Procedure: XR chest 1V Ordering Provider: Blas Lee D.O. PROCEDURE: XR CHEST 1V INDICATIONS: Epigastric pain TECHNIQUE: One view of the chest was acquired. COMPARISON: [facility], CR, XR CHEST 1V, 01/11/2023, 11:02. FINDINGS: Surgical changes and devices: None. Lungs and pleura: Lungs are clear. No pleural effusions or pneumothorax. Mediastinum: Mediastinal contours appear normal. Heart size is normal. Bones and chest wall: No suspicious bony lesions. Overlying soft tissues appear unremarkable. IMPRESSION: No acute cardiopulmonary abnormality is seen. CT scan - abdomen/pelvis: Radiologist's Impression: [address] [address] [address] Scan Report Signed Patient: Sherry Mcknight MR#: [id number] : 1950 Acct:[id number] Age/Sex: 74 / F Date of Service: 10/24/24 Loc: ED Accession Number: [id number] Procedure: CT abdomen pelvis wo con Ordering Provider: Blas Lee D.O. PROCEDURE: CT ABDOMEN PELVIS WO CON INDICATIONS: Right-sided flank and right-sided abdominal pain TECHNIQUE: Axial sections were acquired from the lung bases to the pubic symphysis. Coronal and sagittal reformats were performed. For radiation dose reduction, the following was used: automated exposure control, adjustment of mA and/or kV according to patient size. COMPARISON: None. FINDINGS: Image quality: Diagnostic. Lower Chest: Cardiomegaly. Pulmonary micro nodules . Annular calcification of the mitral valve. URINARY: Right Kidney: No stones or hydronephrosis. Right Ureter: No hydroureter. Left Kidney: No stones or hydronephrosis. Partial duplex renal collecting system of the left kidney. Left Ureter: No hydroureter. Bladder: Normal wall thickness. No stones. ABDOMEN: Liver: No contour-deforming solid mass. Calcified granuloma. Gallbladder: Absent. Biliary ducts: No biliary dilation. Pancreas: No ductal dilation. Spleen: Size is within normal limits. Calcified granuloma. Adrenal Glands: No adrenal nodules. Stomach and Bowel: Normal colonic caliber, without significant wall thickening. Colonic diverticulosis without evidence of diverticulitis. Peritoneum: No abnormal intraperitoneal fluid. No free air. Ventral Wall: No hernia. Abdominal Nodes: No enlarged retroperitoneal or mesenteric lymph nodes. Vessels: Aorta and inferior vena cava are normal in size. PELVIS: Pelvic Organs: Heterogeneous right ovarian cystic lesion measuring 5.0 x 4.7 cm. Pelvic Nodes: Unremarkable. Miscellaneous: No inguinal hernias are seen. Bones: Unremarkable. IMPRESSION: No obstructing stones or hydronephrosis. Colonic diverticulosis without evidence of diverticulitis. Complex right ovarian cystic lesion measuring 5.0 x 4.7 cm. Recommend dedicated pelvic ultrasound to exclude malignancy. Pulmonary micronodules. Consider 12 month follow-up if at high risk for developing lung cancer, per Fleischner Society guidelines. US - GEOPHYSICAL DATA TECHNICIAN: Radiologist's Impression: [address] [address] Ultrasound Report Signed Patient: Sherry Mcknight MR#: [id number] : 1950 Acct:[id number] Age/Sex: 74 / F Date of Service: 10/24/24 Loc: ED Accession Number: [id number] Procedure: US pelvic complete Ordering Provider: Blas Lee D.O. PROCEDURE: US PELVIC COMPLETE INDICATIONS: right sided large ovarian cyst TECHNIQUE: Real-time scanning was performed of the pelvic organs, with image documentation. Additional endovaginal scanning was necessary due to incomplete visualization of the adnexal and endometrial structures by transabdominal scanning. COMPARISON: None. FINDINGS: Uterus: Absent. Visualized. There is a simple appearing Ovaries: The right ovary measures 3.6 x 4.5 x 3.6 cm, with a calculated ovarian volume of 30 cc. Left ovary not visualized. There is a simple appearing right ovarian cystic lesion without solid component measuring 4.1 x 3.0 x 3.2 cm. Other: No pathologic free abdominal or pelvic fluid. IMPRESSION: Simple appearing right ovarian cystic lesion without solid components measuring 4.1 x 3.0 x 3.2 cm. O-RADS 2. Recommend yearly follow-up with pelvic ultrasound, per consensus guidelines. ECG Data Interpretation: EKG interpreted ED physician sinus 69 beats per minute, QTC 516 left axis deviation nonspecific ST changes no STEMI MDM Narrative Medical decision making narrative: 74-year-old female history of diabetes hypertension presents from home for evaluation of right-sided flank and right-sided abdominal pain with nausea no vomiting started abruptly at 2:00 a.m. waxing waning in nature nothing making it better or worse. Patient had significant improvement of symptoms after administration medication here, patient with negative troponin no leukocytosis, urinalysis not consistent with an acute urinary tract infection. Chest x-ray without any acute cardiopulmonary abnormalities. Patient's CT scan just showing right ovarian cyst, ultrasound showing right ovarian cystic lesion measuring 4 cm x 3 x 3. Also informed patient of need for repeat CT scan given pulmonary nodules noted on CT abdomen and pelvis. Symptoms more likely secondary to lumbar strain/MSK pain given negative workup here in the emergency department. She was instructed to follow up with her OBGYN, primary care in an outpatient setting she verbalized understanding of this and agrees to being discharged home with outpatient follow up Discharge Plan Departure Patient Disposition: Home Clinical Impression: Ovarian cyst, Acute right flank pain Activity Restrictions/Additional Instructions: Please follow up with primary care and OBGYN in outpatient setting Prescriptions: No Action torsemide 20 mg tablet 40 mg PO DAILY allopurinol 300 mg tablet 300 mg PO DAILY colchicine [Colcrys] 0.6 mg tablet 0.6 mg PO DAILY PRN (Reason: Gout) gabapentin 300 mg capsule 600 mg PO QPM Patient Comments: patient states ran out escitalopram oxalate 20 mg tablet 20 mg PO DAILY ProAir RespiClick 90 mcg/actuation aerosol powdr breath activated 1 inh inhalation Q4-6H PRN (Reason: shortness of breath or wheezing) Qty: 1 0RF hydrocodone-acetaminophen 5-325 mg tablet 1 tab PO Q6H PRN (Reason: pain) Qty: 10 0RF cyclobenzaprine 5 mg tablet 5 mg PO TID PRN (Reason: muscle spasm) Qty: 10 0RF metformin 500 mg Tablet 1,000 mg PO BID atorvastatin 20 mg Tablet 20 mg PO QPM glipizide 10 mg Tablet 20 mg PO QAM diltiazem HCl 300 mg Capsule,Extended Release 24 Hr 300 mg PO DAILY omeprazole 40 mg Capsule,Delayed Release(Dr/Ec) 40 mg PO DAILY nitroglycerin 0.4 mg Tablet, Sublingual 0.4 mg SUBLINGUAL DAILY PRN (Reason: Chest Pain) potassium chloride [Klor-Con 10] 10 mEq Tablet Extended Release 10 meq PO QPM isosorbide mononitrate 60 mg Tablet Extended Release 24 Hr 60 mg PO DAILY flecainide 150 mg Tablet 150 mg PO QAM amitriptyline 10 mg tablet 10 mg PO QPM indomethacin 25 mg capsule 25 mg PO DAILY clotrimazole 1 % Cream 1 applic TOPICAL BID PRN (Reason: Rash) insulin glargine [Lantus Solostar U-100 Insulin] 100 unit/mL (3 mL) Insulin Pen 56 unit SUBCUT DAILY magnesium oxide 500 mg Capsule 500 mg PO BID pramipexole [Mirapex] 0.125 mg Tablet 0.125 mg PO fluticasone propionate [Allergy Relief (fluticasone)] 50 mcg/actuation [place],Suspension 1 spray INTRANASAL DAILY PRN (Reason: Allergy Symptoms) Rx Instructions: administer into each nostril sertraline [Zoloft] 50 mg Tablet 50 mg PO DAILY vitamin K2 100 mcg Capsule 100 mcg PO DAILY losartan 100 mg tablet Referrals: Riley Clayton MD [Primary Care Provider] - Yulia Adkins MD [Physician] - Stand Alone Forms: Patient Portal/API/Survey
--- NOTE | 2024-10-24 11:04 | DI.RAD.S_ITS ---
PROCEDURE: XR CHEST 1V INDICATIONS: Epigastric pain TECHNIQUE: One view of the chest was acquired. COMPARISON: [facility], CR, XR CHEST 1V, 01/11/2023, 11:02. FINDINGS: Surgical changes and devices: None. Lungs and pleura: Lungs are clear. No pleural effusions or pneumothorax. Mediastinum: Mediastinal contours appear normal. Heart size is normal. Bones and chest wall: No suspicious bony lesions. Overlying soft tissues appear unremarkable. IMPRESSION: No acute cardiopulmonary abnormality is seen. Dictated by: Fredis Lou M.D. on 10/24/2024 at 12:00 Approved by: Fredis Lou M.D. on 10/24/2024 at 12:00
--- NOTE | 2024-10-24 11:04 | EKG_ITS ---
[place] [address] [place] [id number] Test Date: 2024-10-24 Pat Name: Sherry Mcknight Department: [facility] Room: Gender: Female [employer]: merlene : 1950 Requested By: Order Number: [id number] Reading MD: Carlos Delgado Measurements Intervals [place] Rate: 69 P: 22 OR: 168 QRS: 6 QRSD: 78 T: 55 QT: 482 QTc: 516 Interpretive Statements Sinus rhythm with premature atrial complexes Minimal voltage criteria for LVH, may be normal variant ( R in aVL ) Prolonged QT Electronically Signed On 10-24-2024 16:43:06 PST by Carlos Delgado
--- NOTE | 2024-10-24 11:04 | DI.CT.S_ITS ---
PROCEDURE: CT ABDOMEN PELVIS WO CON INDICATIONS: Right-sided flank and right-sided abdominal pain TECHNIQUE: Axial sections were acquired from the lung bases to the pubic symphysis. Coronal and sagittal reformats were performed. For radiation dose reduction, the following was used: automated exposure control, adjustment of mA and/or kV according to patient size. COMPARISON: None. FINDINGS: Image quality: Diagnostic. Lower Chest: Cardiomegaly. Pulmonary micro nodules . Annular calcification of the mitral valve. URINARY: Right Kidney: No stones or hydronephrosis. Right Ureter: No hydroureter. Left Kidney: No stones or hydronephrosis. Partial duplex renal collecting system of the left kidney. Left Ureter: No hydroureter. Bladder: Normal wall thickness. No stones. ABDOMEN: Liver: No contour-deforming solid mass. Calcified granuloma. Gallbladder: Absent. Biliary ducts: No biliary dilation. Pancreas: No ductal dilation. Spleen: Size is within normal limits. Calcified granuloma. Adrenal Glands: No adrenal nodules. Stomach and Bowel: Normal colonic caliber, without significant wall thickening. Colonic diverticulosis without evidence of diverticulitis. Peritoneum: No abnormal intraperitoneal fluid. No free air. Ventral Wall: No hernia. Abdominal Nodes: No enlarged retroperitoneal or mesenteric lymph nodes. Vessels: Aorta and inferior vena cava are normal in size. PELVIS: Pelvic Organs: Heterogeneous right ovarian cystic lesion measuring 5.0 x 4.7 cm. Pelvic Nodes: Unremarkable. Miscellaneous: No inguinal hernias are seen. Bones: Unremarkable. IMPRESSION: No obstructing stones or hydronephrosis. Colonic diverticulosis without evidence of diverticulitis. Complex right ovarian cystic lesion measuring 5.0 x 4.7 cm. Recommend dedicated pelvic ultrasound to exclude malignancy. Pulmonary micronodules. Consider 12 month follow-up if at high risk for developing lung cancer, per Fleischner Society guidelines. Dictated by: Cash Fuentes M.D. on 10/24/2024 at 11:50 Approved by: Cash Fuentes M.D. on 10/24/2024 at 11:53
[2024-10-24 11:12] LABS: Add Manual Diff / Slide Review NO; Basophils Absolute Auto 100 /uL (0-100); Basophils Percent Auto 1.5 % (0-2); Eosinophils Absolute Auto 400 /uL (0-450); Eosinophils Percent Auto 4.5 % (2-4); Hematocrit 42.3 % (36-46); Hemoglobin 13.8 g/dL (12.0-16.0); Lymphocytes Absolute Auto 1900 /uL (1100-4500); Lymphocytes Percent Auto 20.9 % (25-40); Mean Corpuscular HGB Conc 32.8 % (30-36); Mean Corpuscular Hemoglobin 28.7 PG (26-34); Mean Corpuscular Volume 87.6 fL (80-100); Monocytes Absolute Auto 500 /uL (0-900); Neutrophils Absolute Auto 5900 /uL (1500-7000); Neutrophils Percent Auto 67.1 % (50-75); Platelet Count 283 X10^3/uL (150-400); Red Blood Cell Count 4.83 X10^6/uL (4.0-5.2); White Blood Cell Count 8.9 X10^3/uL (4.5-11.0)
[2024-10-24 11:28] LABS: Alanine Aminotransferase 24 IU/L (<35); Albumin 4.1 g/dL (3.5-5.0); Albumin Globulin Ratio 1.2 (1.0-2.8); Alkaline Phosphatase 108 U/L (38-126); Aspartate Aminotransferase 26 IU/L (14-36); BUN Creatinine Ratio 22.4 (6-22); Bilirubin Total 0.5 mg/dL (0.2-1.3); Blood Urea Nitrogen 33 mg/dL (7-17); Calcium 8.9 mg/dL (8.4-10.2); Carbon Dioxide 28 mmol/L (22-32); Chloride 103 mmol/L (98-107); Creatine Kinase 86 U/L (30-135); Estimated Glomerular Filt Rate 37 mL/min (>60); Globulin 3.4 g/dL (1.7-4.1); Glucose 123 mg/dL (80-110); Lipase 107 U/L (23-300); Magnesium 1.9 mg/dL (1.6-2.3); Potassium 4.5 mmol/L (3.4-5.1); Sodium 139 mmol/L (137-145); Total Protein 7.5 g/dL (6.3-8.2)
[2024-10-24 11:29] LABS: HEMOLYSIS 57 (0-50)
[2024-10-24 11:40] LABS: Troponin I < 0.012 ng/mL (0.01-0.034)
[2024-10-24] MEDS: ONDANSETRON 4 MG/2 ML INJ IV (12:02)
--- NOTE | 2024-10-24 12:05 | DI.US.S_ITS ---
PROCEDURE: US PELVIC COMPLETE INDICATIONS: right sided large ovarian cyst TECHNIQUE: Real-time scanning was performed of the pelvic organs, with image documentation. Additional endovaginal scanning was necessary due to incomplete visualization of the adnexal and endometrial structures by transabdominal scanning. COMPARISON: None. FINDINGS: Uterus: Absent. Visualized. There is a simple appearing Ovaries: The right ovary measures 3.6 x 4.5 x 3.6 cm, with a calculated ovarian volume of 30 cc. Left ovary not visualized. There is a simple appearing right ovarian cystic lesion without solid component measuring 4.1 x 3.0 x 3.2 cm. Other: No pathologic free abdominal or pelvic fluid. IMPRESSION: Simple appearing right ovarian cystic lesion without solid components measuring 4.1 x 3.0 x 3.2 cm. O-RADS 2. Recommend yearly follow-up with pelvic ultrasound, per consensus guidelines. We strive to produce accurate, complete, and clear reports of imaging services. To assist us in improving patient care, this report was composed using standard report templates and voice recognition software. Therefore, it may contain abnormal punctuation, insertions and/or omissions. Occasional wrong-word or sound-alike substitutions may occur. Though we review the report and make efforts to correct it, we do recommend that the report be read carefully in proper context to recognize any text inaccuracies. Dictated by: Cash Fuentes M.D. on 10/24/2024 at 13:09 Approved by: Cash Fuentes M.D. on 10/24/2024 at 13:32
== END 2024-10-24 14:55 | disposition home or self-care (01) ==
PROVIDERS: Emergency Provider Student in an Organized Health Care Education/Training Program; Family Provider Orthopaedic Surgery; PCP Internal Medicine
DX: N83.201 Unspecified ovarian cyst, right side (principal); R10.9 Unspecified abdominal pain; R11.0 Nausea; E11.9 Type 2 diabetes mellitus without complications; Z79.4 Long term (current) use of insulin; I10 Essential (primary) hypertension; N18.30 Chronic kidney disease, stage 3 unspecified
CPT/HCPCS: 36415; 71045; 74176; 76856; 80053; 81003; 82550; 83690; 83735; 84484; 85025; 93005; 96374; 99284; J2405

== ENCOUNTER → 2025-06-14 08:17 | Outpatient (CLI) | payer MEDICARE, OTHER, SELFPAY ==
--- NOTE | 2025-06-14 08:20 | DI.MRI.S_ITS ---
PROCEDURE: MR ANKLE RT WO CON INDICATIONS: rt ankle pain TECHNIQUE: Noncontrast sagittal T1 spin echo and T2 fast spin echo with fat saturation, axial proton density fast spin echo and T2 fast spin echo with fat saturation, coronal T1 spin echo and T2 fast spin echo with fat saturation through the ankle/hindfoot. COMPARISON: None. FINDINGS: Quality: Adequate Extensor tendons: Unremarkable Medial ankle tendons: Posterior tibialis tendon: Intact. Flexor digitorum longus tendon: Intact. Flexor hallucis longus tendon: Intact. Medial ankle ligaments: Deltoid ligament, superficial and deep: Intact Spring ligaments: Intact. Lateral ankle tendons: Peroneus brevis tendon: Intact. Peroneus longus tendon: Intact. Lateral ankle ligaments: Tibiofibular ligaments: Intact Anterior talofibular ligament: Intact. Posterior talofibular ligament: Intact. Calcaneofibular ligament: Intact. Achilles tendon: Intact. Plantar fascia: Unremarkable. Sinus tarsi: Unremarkable. Tarsal tunnel: Unremarkable. Cartilage: Severe [id number] cartilage loss at the 1-5 tarsometatarsal joints and at the navicular cuneiform joint with prominent degenerative cysts. Bones: No fracture. Joints: No effusion. Other: Circumferential subcutaneous edema. IMPRESSION: Severe tarsometatarsal degenerative arthropathy. This may be sequelae of primary osteoarthritis, inflammatory arthropathy, gout or Charcot. Dictated by: Umer Barger M.D. on 06/15/2025 at 11:25 Approved by: Umer Barger M.D. on 06/20/2025 at 14:46
== END ==
LOC: MRI 08:19
PROVIDERS: Family Provider Orthopaedic Surgery; PCP Internal Medicine; Referring Provider Internal Medicine
DX: M25.571 Pain in right ankle and joints of right foot (principal); M25.371 Other instability, right ankle
CPT/HCPCS: 73721

== ENCOUNTER → 2025-07-24 18:54 | Outpatient (CLI) | payer MEDICARE, OTHER, SELFPAY ==
--- NOTE | 2025-07-24 18:57 | DI.MRI.S_ITS ---
PROCEDURE: MR LUMBAR SPINE WO CON INDICATIONS: LUMBAR SPINE pain TECHNIQUE: Noncontrast sagittal T1 spin echo and T2 fast echo, sagittal STIR, and T2 fast spin echo through the lumbar spine. In cases with scoliosis, additional coronal T2 fast spin echo may be performed. COMPARISON: None. FINDINGS: Image quality: Excellent. Alignment and Curvature: There is mild, approximately 5 millimeters of L4-L5 anterolisthesis secondary to facet hypertrophy. Bone Marrow: Marrow is of normal overall signal. No acute vertebral body compression fractures. Spinal Cord: Conus medullaris terminates at the L1 level. Visualized cord demonstrates normal signal and size. Paraspinous Soft Tissues: No paravertebral masses. T12-L1: Loss of disc signal. No central stenosis. No neural foraminal narrowing. No neural compression. L1-L2: Loss of disc signal. Minimal, diffuse disc bulge. No central stenosis. No neural foraminal narrowing. No neural compression. L2-L3: Normal appearance. L3-L4: Loss of disc signal. Mild, diffuse disc bulge. Mild bilateral facet hypertrophy. Mild narrowing of the central canal. Mild bilateral neural foraminal narrowing. No neural compression. L4-L5: Loss of disc signal. Mild to moderate diffuse disc bulge. Severe bilateral facet hypertrophy. Moderate ligamentum flavum hypertrophy. Moderate to severe narrowing of the central canal. Moderate bilateral neural foraminal narrowing. No neural compression. L5-S1: Loss of disc signal. Mild, diffuse disc bulge. Mild bilateral facet hypertrophy. No central stenosis. No neural foraminal narrowing. No neural compression. IMPRESSION: Grade 1 L4-L5 degenerative spondylolisthesis. Multilevel degenerative disc disease. Multilevel facet arthropathy. Moderate to severe L4-L5 central canal stenosis. No neural compression. Dictated by: Court Dodge MD, PhD on 07/25/2025 at 11:00 Approved by: Court Dodge MD, PhD on 07/25/2025 at 11:03
== END ==
LOC: MRI 18:55
PROVIDERS: Family Provider Orthopaedic Surgery; PCP Internal Medicine; Referring Provider Student in an Organized Health Care Education/Training Program; Visit Provider Student in an Organized Health Care Education/Training Program
DX: M43.16 Spondylolisthesis, lumbar region (principal); M51.16 Intervertebral disc disorders with radiculopathy, lumbar region; M51.17 Intervertebral disc disorders with radiculopathy, lumbosacral region; M47.26 Other spondylosis with radiculopathy, lumbar region; M47.27 Other spondylosis with radiculopathy, lumbosacral region; M48.061 Spinal stenosis, lumbar region without neurogenic claudication
CPT/HCPCS: 72148

== ENCOUNTER 2025-08-20 12:31 | Emergency (ER) | payer MEDICARE, OTHER, SELFPAY ==
[2025-08-20 12:53] VITALS: BP 192/78; PULSE 77; RESP 18; TEMP 36.2; O2SAT 99; BMI 41.9
--- NOTE | 2025-08-20 12:59 | DI.RAD.S_ITS ---
PROCEDURE: XR HIP W PEL IF DONE RT 2V INDICATIONS: pain in groin TECHNIQUE: AP pelvis with lateral view(s) of the right hip(s). COMPARISON: None. FINDINGS: Bones: Changes of bilateral total hip prostheses. No acute hardware complication. No fractures or dislocations. Pelvic ring appears intact. No suspicious bony lesions. Soft tissues: The visualized bowel gas pattern is normal. No suspicious soft tissue calcifications. Surgical clip overlies the right pelvis. IMPRESSION: No acute bony abnormality. Changes of bilateral total hip prostheses without acute hardware complication. Dictated by: Getachew Gardner M.D. on 08/20/2025 at 13:15 Approved by: Getachew Gardner M.D. on 08/20/2025 at 13:15
--- NOTE | 2025-08-20 19:18 | PC.NURSE ---
Patient requesting to leave. Signed [facility] paperwork.
== END 2025-08-20 19:18 | disposition left against medical advice (07) ==
PROVIDERS: Emergency Provider Emergency Medicine; Family Provider Orthopaedic Surgery; PCP Internal Medicine
DX: R10.32 Left lower quadrant pain (principal)
CPT/HCPCS: 73502; 99281